=== PATIENT | male | born 1940 | race Caucasian/White ===

== ENCOUNTER 2016-09-12 11:00 | Inpatient (IN) | payer MEDICARE, MEDICAID ==
[2016-09-12 11:47] VITALS: BP 133/65
[2016-09-12] MEDS ORDERED: Hydrocodone/APAP 10 mg/325 mg Tab PO PRN (13:31)
[2016-09-12] MEDS ORDERED: Maalox 30 mL Cup PO PRN (13:44)
[2016-09-12] MEDS ORDERED: Magnesium Hydroxide (MOM) 30 mL UDC PO PRN (13:44)
[2016-09-12] MEDS ORDERED: Albuterol/Ipratropium Neb 3 ML AERS HHN SCH (15:00)
[2016-09-12] MEDS: Albuterol/Ipratropium Neb 3 ML AERS HHN SCH (15:17)
[2016-09-12] MEDS: INSULIN ASPART SLIDING SCALE 100 UNITS/ML UNIT SUBQ SCH ×2 (16:58→20:45)
[2016-09-12] MEDS: Insulin Detemir 100 units/mL 10mL Vial SUBQ SCH (17:54)
[2016-09-12] MEDS ORDERED: INSULIN ASPART, RECOMBINANT 100 UNITS/ML SUBQ ONE (20:09)
[2016-09-12] MEDS ORDERED: Insulin Detemir 100 units/mL 10mL Vial SUBQ SCH (21:00)
--- NOTE | 2016-09-12 22:03 | History & Physical ---
HISTORY OF PRESENT ILLNESS: This is a 76-year-old male who is a direct admission from [facility], who is now admitted here to [facility] for depression and suicidal ideation. On examination, the patient refuses to answer any further question. PAST MEDICAL HISTORY: Hypertension, diabetes, and morbid obesity. SURGICAL HISTORY: Unknown. ALLERGIES: BENAZEPRIL and GLIPIZIDE. REVIEW OF SYSTEMS: Unable to obtain. The patient is uncooperative. PHYSICAL EXAMINATION: GENERAL: The patient is morbidly obese. Awake and alert. Appears depressed. VITAL SIGNS: Temperature 97.2, heart rate 60, blood pressure 133/65, respirations 22, and O2 of 95. HEENT: Normocephalic. No nasal deviation. LUNGS: Clear bilaterally. HEART: Regular rate and rhythm. No murmurs or gallop. ABDOMEN: Soft, nontender, and nondistended. ASSESSMENT: 1. Morbidly obese. 2. Hypertension. 3. Type 2 diabetes. 4. Depression. 5. Suicidal ideation. PLAN: Psychiatry is to manage the patient's psychiatric issues. The patient is to be kept on the low-fat diet. We will monitor the patient's blood pressure and glucose level. JOB# [id number]
[2016-09-13] MEDS: Albuterol/Ipratropium Neb 3 ML AERS HHN SCH ×4 (00:33→22:38)
--- NOTE | 2016-09-13 04:24 | Psychosocial Evaluation ---
CHIEF COMPLAINT: "I was ____." HISTORY OF PRESENT ILLNESS: The patient is a 76-year-old male who was admitted to the hospital on a 5150 hold for dangerous to self and others. The patient threatened the staff and peers in the prison where he lives that he is going to kill himself and someone else according to the hold. The patient said that he has been stressed out and has been angry lately. He also has been feeling hopeless and helpless. The patient said that he has history of depression and he has been feeling more stressed out and more angry lately. The patient said that he started to have a lot of tension and started to have thoughts of suicide with no specific plans. PAST PSYCHIATRIC HISTORY: The patient has history of depression and the patient is taking Lexapro. PAST MEDICAL HISTORY: The patient is obese. Also, has hypothyroidism and diabetes mellitus. The patient added that his blood pressure sometimes is elevated. FAMILY PSYCHIATRIC HISTORY: The patient denies. SOCIAL HISTORY: The patient is . He has seven children and he is in touch with some of them. The patient denies any alcohol or any street drug use. He denies any legal issues. He denies any history of sexual or physical abuse. ALLERGIES: No known allergies. MENTAL STATUS EXAMINATION: The patient appears his stated age. Obese. Sad affect. In a depressed mood. Thought processes are mainly goal directed. The patient denies auditory or visual hallucinations or delusions. The patient admits to suicidal ideation and that he was threatening others. The patient is alert and oriented to time, place, person and situation. Intact, immediate, recent and remote memories. Poor insight. Poor judgment. He seems to be of average intelligence based on his verbal ability. ASSESSMENT: PRIMARY DIAGNOSES: Major depression, severe, recurrent, without psychotic features. MEDICAL DIAGNOSIS: 1. Hypothyroidism. 2. Obesity. 3. Diabetes mellitus. TREATMENT PLAN: We will monitor the patient's behavior and condition closely. We will start individual as well as milieu psychotherapy. We will monitor psychotropic medications. ESTIMATED LENGTH OF STAY: 7-10 days. THE PATIENT'S STRENGTHS AND WEAKNESSES: The patient's general fund of knowledge is fair. Weaknesses is ineffective coping and anger and poor impulse control. AFTER DISCHARGE PLAN: Outpatient treatment and followup will continue as an outpatient. The patient might need. CRITERIA FOR DISCHARGE: The patient will not be psychotic. The patient will not be suicidal or homicidal and stabilize psychotropic medications. The patient also placement might be an issue. JOB# [id number]
[2016-09-13] MEDS: Levothyroxine 0.1 Mg Tab PO SCH (06:37)
[2016-09-13] MEDS: INSULIN ASPART SLIDING SCALE 100 UNITS/ML UNIT SUBQ SCH ×4 (06:38→20:16)
[2016-09-13] MEDS: Insulin Detemir 100 units/mL 10mL Vial SUBQ SCH ×2 (06:38→17:52)
[2016-09-13] MEDS: Pantoprazole 40 mg EC Tab PO SCH (09:27)
[2016-09-13] MEDS: Potassium Chloride Elixir 20 mEq /15 mL UDC PO SCH (09:28)
--- NOTE | 2016-09-13 10:05 | General Progress Note ---
Subjective - Review of Systems Service Date: 09/13/16 Subjective: no change Objective - Results Recent Labs: Laboratory Last Values Glucose 460 mg/dL (70-105) H* 09/12/16 17:30 POC Glucose 314 MG/DL (70 - 105) H 09/13/16 05:16 Hemoglobin A1c % 12.2 % (4.0-6.0) H 09/12/16 18:30 - Physical Exam Vitals and I&O: Vital Signs Temp 97.2 F 09/13/16 06:33 Pulse 73 09/13/16 09:31 Resp 22 09/13/16 08:53 BP 117/66 09/13/16 09:31 Pulse Ox 92 09/13/16 08:53 Intake & Output 09/12/16 09/13/16 09/13/16 18:59 06:59 18:59 Intake Total 1600 240 Output Total 1800 Balance -200 240 Weight (lbs) 176.901 kg Intake: Oral 1600 240 Output: Urine 1800 Other: # Voids 3 # Bowel Movements 0 0 Active Medications: Current Medications Acetaminophen (Tylenol) 650 mg PO Q6HR PRN PRN Reason: mild pain Stop: 11/11/16 13:30 Acetaminophen/Hydrocodone Bitart ([place] 10 Mg/325 Mg) 1 tab PO Q6H PRN PRN Reason: Pain (Moderate-Severe) Stop: 11/11/16 13:30 Al Hydrox/Mg Hydrox/Simethicone (Maalox) 30 ml PO Q6H PRN PRN Reason: GI DISTRESS Stop: 11/11/16 13:43 Albuterol/Ipratropium (Duoneb Neb) 3 ml HHN Q8HRT [facility] Stop: 11/11/16 14:59 Last Admin: 09/13/16 08:53 Dose: 3 ml Aspirin (Ecotrin) 81 mg PO DAILY [facility] Stop: 11/12/16 08:59 Last Admin: 09/13/16 09:26 Dose: 81 mg Carvedilol (Coreg) 3.125 mg PO BID [facility] Stop: 11/11/16 16:59 Last Admin: 09/13/16 09:31 Dose: 3.125 mg Citalopram Hydrobromide (Celexa) 20 mg PO DAILY [facility] PRN Reason: Protocol Stop: 11/12/16 08:59 Last Admin: 09/13/16 09:27 Dose: 20 mg Docusate Sodium (Colace) 500 mg PO BID [facility] Stop: 11/12/16 09:44 Furosemide (Lasix) 40 mg PO BID [facility] Stop: 11/11/16 16:59 Last Admin: 09/13/16 09:27 Dose: 40 mg Insulin Aspart (Novolog Insulin Sliding Scale) 0 units SUBQ ACHS [facility] PRN Reason: Protocol Stop: 11/11/16 16:29 Last Admin: 09/13/16 06:38 Dose: 6 units Insulin Detemir (Levemir Insulin) 40 units SUBQ QDAC [facility] Stop: 11/12/16 07:29 Last Admin: 09/13/16 06:38 Dose: 40 units Insulin Detemir (Levemir Insulin) 30 units SUBQ QDIPM [facility] Stop: 11/11/16 17:44 Last Admin: 09/12/16 17:54 Dose: 30 unit Levothyroxine Sodium (Synthroid) 0.1 mg PO QDAC [facility] Stop: 11/12/16 07:29 Last Admin: 09/13/16 06:37 Dose: 0.1 mg Lorazepam (Ativan) 1 mg IVP Q4H PRN; Protocol PRN Reason: Anxiety/Agitation Stop: 11/11/16 13:43 Magnesium Hydroxide (Milk Of Magnesia) 30 ml PO DAILY PRN PRN Reason: Constipation Stop: 11/11/16 13:43 Ondansetron HCl (Zofran Odt) 4 mg PO TID PRN PRN Reason: Nausea / Vomiting Stop: 11/11/16 13:30 Pantoprazole Sodium (Protonix) 40 mg PO DAILY [facility] Stop: 11/12/16 08:59 Last Admin: 09/13/16 09:27 Dose: 40 mg Potassium Chloride (Potassium Chloride Elixir) 16 meq PO DAILY [facility] Stop: 11/12/16 08:59 Last Admin: 09/13/16 09:28 Dose: 16 meq Risperidone (Risperdal) 0.5 mg PO DAILY [facility] PRN Reason: Protocol Stop: 11/12/16 08:59 Last Admin: 09/13/16 09:28 Dose: 0.5 mg Rivaroxaban (Xarelto) 20 mg PO HS [facility] Stop: 11/11/16 20:59 Last Admin: 09/12/16 20:44 Dose: 20 mg Simvastatin (Zocor) 40 mg PO HS [facility] PRN Reason: Protocol Stop: 11/11/16 20:59 Last Admin: 09/12/16 20:44 Dose: 40 mg Spironolactone (Aldactone) 25 mg PO DAILY [facility] Stop: 11/12/16 08:59 Last Admin: 09/13/16 09:26 Dose: 25 mg Valsartan (Diovan) 160 mg PO DAILY [facility] Stop: 11/12/16 08:59 Last Admin: 09/13/16 09:26 Dose: 160 mg Zolpidem Tartrate (Ambien) 5 mg PO HS PRN PRN Reason: Insomnia Stop: 11/11/16 13:43 General: Alert, Cooperative HEENT: Atraumatic Neck: Supple Cardiovascular: Regular rate, Normal S1, Normal S2 Lungs: Clear to auscultation Abdomen: Bowel sounds Neurological: Normal gait Psych/Mental Status: Other - Procedures Procedures: see psych notes Assessment/Plan - Assessment Assessment: dm2 psychosis
[2016-09-13] MEDS: Magnesium Hydroxide (MOM) 30 mL UDC PO PRN (18:56)
--- NOTE | 2016-09-14 01:10 | Progress Notes ---
SUBJECTIVE: Chart reviewed and the patient interviewed. Also discussed the patient's condition with the staff and reviewed records and labs. The patient is still severely anxious and he is still in a depressed mood. The patient also is still confused and rambling and his thought processes are circumstantial with flight of ideas. The patient also is still confused and he is still restless. The patient also is having difficulty with his mood. The patient also is having difficulty getting out of bed and interacting with others. Otherwise, the patient is compliant with taking Celexa with no side effects. During interview, the patient is suspicious and is paranoid. He also is still interacting minimally with others. ASSESSMENT: The patient is still confused and psychotic. TREATMENT PLAN: We will continue monitoring his behavior and his condition closely. Also, continue to work on his psychosis. Also, continue to adjust psychotropic medications and we add Risperdal in a dose of 0.5 mg everyday and we will continue to follow up closely. JOB# [id number]
[2016-09-14] MEDS: INSULIN ASPART SLIDING SCALE 100 UNITS/ML UNIT SUBQ SCH ×4 (06:32→20:47)
[2016-09-14] MEDS: Levothyroxine 0.1 Mg Tab PO SCH (06:32)
[2016-09-14] MEDS: Insulin Detemir 100 units/mL 10mL Vial SUBQ SCH ×2 (06:33→17:36)
[2016-09-14] MEDS: Albuterol/Ipratropium Neb 3 ML AERS HHN SCH ×3 (07:44→23:47)
[2016-09-14] MEDS: Pantoprazole 40 mg EC Tab PO SCH (09:03)
[2016-09-14] MEDS: Potassium Chloride Elixir 20 mEq /15 mL UDC PO SCH (09:05)
--- NOTE | 2016-09-14 09:18 | General Progress Note ---
Subjective - Review of Systems Subjective: no change Objective - Results Recent Labs: Laboratory Last Values Glucose 460 mg/dL (70-105) H* 09/12/16 17:30 POC Glucose 209 MG/DL (70 - 105) H 09/14/16 06:18 Hemoglobin A1c % 12.2 % (4.0-6.0) H 09/12/16 18:30 - Physical Exam Vitals and I&O: Vital Signs Temp 97.1 F 09/14/16 07:12 Pulse 67 09/14/16 09:04 Resp 22 09/14/16 07:44 BP 140/72 09/14/16 09:04 Pulse Ox 95 09/14/16 07:44 Intake & Output 09/13/16 09/14/16 09/14/16 18:59 06:59 18:59 Intake Total 1999 Balance 1999 Weight (lbs) 176.266 kg Intake: Oral 1999 Other: # Voids 4 Stool Characteristics Soft Soft Formed Formed Active Medications: Current Medications Acetaminophen (Tylenol) 650 mg PO Q6HR PRN PRN Reason: mild pain Stop: 11/11/16 13:30 Acetaminophen/Hydrocodone Bitart ([place] 10 Mg/325 Mg) 1 tab PO Q6H PRN PRN Reason: Pain (Moderate-Severe) Stop: 11/11/16 13:30 Al Hydrox/Mg Hydrox/Simethicone (Maalox) 30 ml PO Q6H PRN PRN Reason: GI DISTRESS Stop: 11/11/16 13:43 Albuterol/Ipratropium (Duoneb Neb) 3 ml HHN Q8HRT [facility] Stop: 11/11/16 14:59 Last Admin: 09/14/16 07:44 Dose: 3 ml Aspirin (Ecotrin) 81 mg PO DAILY [facility] Stop: 11/12/16 08:59 Last Admin: 09/14/16 09:02 Dose: 81 mg Carvedilol (Coreg) 3.125 mg PO BID [facility] Stop: 11/11/16 16:59 Last Admin: 09/14/16 09:04 Dose: 3.125 mg Citalopram Hydrobromide (Celexa) 20 mg PO DAILY [facility] PRN Reason: Protocol Stop: 11/12/16 08:59 Last Admin: 09/14/16 09:02 Dose: 20 mg Docusate Sodium (Colace) 500 mg PO BID [facility] Stop: 11/12/16 09:44 Last Admin: 09/14/16 09:02 Dose: 500 mg Furosemide (Lasix) 40 mg PO BID [facility] Stop: 11/11/16 16:59 Last Admin: 09/14/16 09:03 Dose: 40 mg Insulin Aspart (Novolog Insulin Sliding Scale) 0 units SUBQ ACHS [facility] PRN Reason: Protocol Stop: 11/11/16 16:29 Last Admin: 09/14/16 06:32 Dose: 2 units Insulin Detemir (Levemir Insulin) 40 units SUBQ QDAC [facility] Stop: 11/12/16 07:29 Last Admin: 09/14/16 06:33 Dose: 40 units Insulin Detemir (Levemir Insulin) 30 units SUBQ QDIPM [facility] Stop: 11/11/16 17:44 Last Admin: 09/13/16 17:52 Dose: 30 unit Levothyroxine Sodium (Synthroid) 0.1 mg PO QDAC [facility] Stop: 11/12/16 07:29 Last Admin: 09/14/16 06:32 Dose: 0.1 mg Lorazepam (Ativan) 1 mg IVP Q4H PRN; Protocol PRN Reason: Anxiety/Agitation Stop: 11/11/16 13:43 Magnesium Hydroxide (Milk Of Magnesia) 30 ml PO DAILY PRN PRN Reason: Constipation Stop: 11/11/16 13:43 Last Admin: 09/13/16 18:56 Dose: 30 ml Ondansetron HCl (Zofran Odt) 4 mg PO TID PRN PRN Reason: Nausea / Vomiting Stop: 11/11/16 13:30 Pantoprazole Sodium (Protonix) 40 mg PO DAILY [facility] Stop: 11/12/16 08:59 Last Admin: 09/14/16 09:03 Dose: 40 mg Potassium Chloride (Potassium Chloride Elixir) 16 meq PO DAILY [facility] Stop: 11/12/16 08:59 Last Admin: 09/14/16 09:05 Dose: 16 meq Risperidone (Risperdal) 0.5 mg PO DAILY [facility] PRN Reason: Protocol Stop: 11/12/16 08:59 Last Admin: 09/14/16 09:02 Dose: 0.5 mg Rivaroxaban (Xarelto) 20 mg PO HS [facility] Stop: 11/11/16 20:59 Last Admin: 09/13/16 20:17 Dose: 20 mg Simvastatin (Zocor) 40 mg PO HS [facility] PRN Reason: Protocol Stop: 11/11/16 20:59 Last Admin: 09/13/16 20:16 Dose: 40 mg Spironolactone (Aldactone) 25 mg PO DAILY [facility] Stop: 11/12/16 08:59 Last Admin: 09/14/16 09:03 Dose: 25 mg Valsartan (Diovan) 160 mg PO DAILY [facility] Stop: 11/12/16 08:59 Last Admin: 09/14/16 09:04 Dose: 160 mg Zolpidem Tartrate (Ambien) 5 mg PO HS PRN PRN Reason: Insomnia Stop: 11/11/16 13:43 Assessment/Plan - Assessment Assessment: dm2 psychosis
[2016-09-14] MEDS: Magnesium Hydroxide (MOM) 30 mL UDC PO PRN (16:58)
[2016-09-14] MEDS: Albuterol/Ipratropium Neb 3 ML AERS HHN PRN (20:24)
[2016-09-14] MEDS: Betamethasone/Clotrimazole Cream 15 gm Tube TP SCH (20:44)
--- NOTE | 2016-09-14 23:44 | Consultation ---
Consult Note - Consult Note Service Date: 09/14/16 Consult Note: PHYSICIAN Consultation Note: Date of Admission: 09/12/16 Purpose of Consultation: left 2nd toe wound and cellulitis. Chief Complaint: suicidal and hemocidal ideation. History of Present Illness: Patient CECY THOMPSON was admitted to location [facility] with PSYCHOSIS. 76 y male with obesity, admitted for suicidal and homicidal ideation. He stated that he wanted to kill himself or some one else. So, he was brought to the [facility] unit here under 5150. He was found to have wound wnd redness of 2nd toe of his left foot so ID consult was called for antibiotic management. No Fever, no chills. no pain. Past medical history: DM2, HTN, obesity. Allergies Allergy/AdvReac Type Severity Reaction Status Date / Time glipizide Allergy Unknown Verified 09/12/16 22:37 benazepril Allergy Verified 09/12/16 11:38 januvia Allergy Severe AGITATION Uncoded 09/13/16 19:25 Vital Signs Temp 97.1 F 09/14/16 07:12 Pulse 82 09/14/16 22:13 Resp 18 09/14/16 22:13 BP 121/58 09/14/16 16:56 Pulse Ox 94 09/14/16 20:45 Intake & Output 09/14/16 09/14/16 09/15/16 06:59 18:59 06:59 Other: Stool Characteristics Soft Formed Laboratory Results - last 24 hr 09/14/16 09/14/16 09/14/16 06:18 11:54 17:18 POC Glucose 209 H 396 H 313 H 09/14/16 20:25 POC Glucose 347 H Home Medication Medication Instructions Recorded Type Acetaminophen [Tylenol] 650 mg PO Q6HR PRN 09/12/16 History Aspirin EC [Ecotrin] 81 mg PO DAILY 09/12/16 History Carvedilol [Coreg] 3.125 mg PO BID 09/12/16 History Citalopram Hydrobromide [Celexa] 20 mg PO DAILY 09/12/16 History Docusate Sodium [Colace] 500 mg PO BID 09/12/16 History Furosemide [Lasix] 40 mg PO BID 09/12/16 History Hydrocodone/APAP 10 mg/325 mg 1 tab PO Q6H PRN 09/12/16 History [[place] 10 mg/325 mg] Insulin Glargine, Recombinan 30 units SUBQ HS 09/12/16 History [Lantus] Insulin Glargine, Recombinan 40 unit SQ QDAC 09/12/16 History [Lantus] Ipratropium/Albuterol Sulfate 18 - 103 mcg IH QID 09/12/16 History [Combivent Respimat] Ipratropium/Albuterol Sulfate 0.5 - 2.5 mg HHN Q8HR 09/12/16 History [Iprat-Albut 0.5-3(2.5) mg/3 ml] Levothyroxine [Synthroid] 0.1 mg PO QDAC 09/12/16 History Omeprazole 20 mg PO DAILY 09/12/16 History Ondansetron [Ondansetron Odt] 4 mg PO TID PRN 09/12/16 History Potassium Chloride ER [Klor-Con] 16 meq PO DAILY 09/12/16 History Rivaroxaban [Xarelto] 20 mg PO HS 09/12/16 History Simvastatin [Zocor] 40 mg PO HS 09/12/16 History Spironolactone [Aldactone] 25 mg PO DAILY 09/12/16 History Valsartan [Diovan] 160 mg PO DAILY 09/12/16 History Current Medications Generic Name Dose Route Start Last Admin Trade Name Freq PRN Reason Stop Dose Admin Acetaminophen 650 mg 09/12/16 13:31 Tylenol PO 11/11/16 13:30 Q6HR PRN mild pain Acetaminophen/Hydrocodone Bitart 1 tab 09/12/16 13:31 [place] 10 Mg/325 Mg PO 11/11/16 13:30 Q6H PRN Pain (Moderate-Severe) Al Hydrox/Mg Hydrox/Simethicone 30 ml 09/12/16 13:44 Maalox PO 11/11/16 13:43 Q6H PRN GI DISTRESS Albuterol/Ipratropium 3 ml 09/12/16 15:00 09/14/16 14:36 Duoneb Neb N 11/11/16 14:59 3 ml Q8HRT [facility] Administration Albuterol/Ipratropium 3 ml 09/14/16 16:03 09/14/16 20:24 Duoneb Neb N 11/13/16 16:02 3 ml Q2H PRN Administration Wheezing Aspirin 81 mg 09/13/16 09:00 09/14/16 09:02 Ecotrin PO 11/12/16 08:59 81 mg DAILY [facility] Administration Betamethasone/Clotrimazole 1 appl 09/14/16 21:00 09/14/16 20:44 Lotrisone Cream TP 11/13/16 20:59 Not Given TID [facility]TE Carvedilol 3.125 mg 09/12/16 17:00 09/14/16 16:56 Coreg PO 11/11/16 16:59 3.125 mg BID [facility] Administration Citalopram Hydrobromide 20 mg 09/13/16 09:00 09/14/16 09:02 Celexa PO 11/12/16 08:59 20 mg DAILY [facility] Administration Protocol Clindamycin HCl 150 mg 09/14/16 21:00 09/14/16 20:43 Cleocin Hcl PO 09/24/16 20:59 150 mg QID [facility] Administration Docusate Sodium 500 mg 09/13/16 09:45 09/14/16 16:56 Colace PO 11/12/16 09:44 500 mg BID [facility] Administration Furosemide 40 mg 09/12/16 17:00 09/14/16 16:56 Lasix PO 11/11/16 16:59 40 mg BID [facility] Administration Hydroxyzine Pamoate 25 mg 09/14/16 13:37 Vistaril PO 11/13/16 13:36 Q4HR PRN Anxiety Protocol Insulin Aspart 0 units 09/12/16 16:30 09/14/16 20:47 Novolog Insulin Sliding Scale SUBQ 11/11/16 16:29 6 units ACHS [facility] Administration Protocol Insulin Detemir 40 units 09/13/16 07:30 09/14/16 06:33 Levemir Insulin SUBQ 11/12/16 07:29 40 units QDAC [facility] Administration Insulin Detemir 30 units 09/12/16 17:45 09/14/16 17:36 Levemir Insulin SUBQ 11/11/16 17:44 30 unit QDIPM [facility] Administration Levothyroxine Sodium 0.1 mg 09/13/16 07:30 09/14/16 06:32 Synthroid PO 11/12/16 07:29 0.1 mg QDAC [facility] Administration Lorazepam 1 mg 09/12/16 13:44 Ativan IVP 11/11/16 13:43 Q4H PRN Anxiety/Agitation Protocol Magnesium Hydroxide 30 ml 09/12/16 18:45 09/14/16 16:58 Milk Of Magnesia PO 11/11/16 13:43 30 ml DAILY PRN Administration Constipation Mupirocin 1 appl 09/14/16 17:00 09/14/16 16:58 Bactroban Oint NS 09/19/16 09:01 1 appl BID [facility] Administration Ondansetron HCl 4 mg 09/12/16 13:31 Zofran Odt PO 11/11/16 13:30 TID PRN Nausea / Vomiting Pantoprazole Sodium 40 mg 09/13/16 09:00 09/14/16 09:03 Protonix PO 11/12/16 08:59 40 mg DAILY [facility] Administration Potassium Chloride 16 meq 09/13/16 09:00 09/14/16 09:05 Potassium Chloride Elixir PO 11/12/16 08:59 16 meq DAILY [facility] Administration Risperidone 0.5 mg 09/13/16 09:00 09/14/16 09:02 Risperdal PO 11/12/16 08:59 0.5 mg DAILY [facility] Administration Protocol Rivaroxaban 20 mg 09/12/16 21:00 09/14/16 20:44 Xarelto PO 11/11/16 20:59 20 mg HS [facility] Administration Simvastatin 40 mg 09/12/16 21:00 09/14/16 20:43 Zocor PO 11/11/16 20:59 40 mg HS [facility] Administration Protocol Spironolactone 25 mg 09/13/16 09:00 09/14/16 09:03 Aldactone PO 11/12/16 08:59 25 mg DAILY [facility] Administration Valsartan 160 mg 09/13/16 09:00 09/14/16 09:04 Diovan PO 11/12/16 08:59 160 mg DAILY [facility] Administration Zolpidem Tartrate 5 mg 09/12/16 13:44 Ambien PO 11/11/16 13:43 HS PRN Insomnia Review of Systems: A 12 point ROS was reviewed with the pertinent positive and negatives noted in the HPI. Social History Smoking status unknown, alcohol unknown, drug use unknown. Family Medical History Non contributory. Physical Exam: General: No Acute Distress HEENT: Head is normocephalic, atraumatic on inspection. Oral cavity: moist, pink tongue. Eyes: EOMI Bilaterally, PERRLA Bilaterally. Neck: Supple,no JVD, no carotid bruit. No use of accessory neck muscle. Cardio: +S1/S2 Auscultated, RRR, no murmurs/rubs/gallops noted Respiratory: Clear to Auscultate Bilaterally Abdominal: Soft, Nondistended, Nontender to palpation x 4 quadrants Extremities: No Edema noted in the lower extremities. Left foot 2nd toe has small superficial wound with surrounding erythema. No discharge. Neurological: Alert and awake. Cranial Nerves II-XII intact bilaterally, Gait Steady, No Focal Deficits noted. Assessment/Plan: 1. 2nd toe left foot cellulitis with small wound. It does not look complicated. - No need to do extensive study. give cleocin po and wound care. 2. Psychosis, with suicidal and homicidal ideation. - Psych consult on the case. 3. Obesity. 4. DM2 5. HTN. Recommendations: as above. Signed, Pedro Fernandez M.D. [id number]
--- NOTE | 2016-09-15 06:15 | Progress Notes ---
SUBJECTIVE: Chart reviewed and the patient interviewed. Also, discussed the patient's condition with the staff and reviewed records and labs. The patient is still anxious and he is still in a depressed mood. The patient states "I do not feel good." The patient also still seems to be suspicious and paranoid and he is very slow in his response to questions. The patient also still isolates himself and staying in bed most of the time. Also, during interview, the patient has poor eye contact and at times, ____ irritable and seems to be distracted. ASSESSMENT: The patient is still depressed and psychotic. TREATMENT PLAN: We will continue monitoring his behavior and his condition closely. Also, started Risperdal and continue Celexa and continue to work on his psychosis as well as ineffective coping. JOB# [id number]
[2016-09-15] MEDS: INSULIN ASPART SLIDING SCALE 100 UNITS/ML UNIT SUBQ SCH ×4 (06:41→20:34)
[2016-09-15] MEDS: Levothyroxine 0.1 Mg Tab PO SCH (06:41)
[2016-09-15] MEDS: Insulin Detemir 100 units/mL 10mL Vial SUBQ SCH ×2 (06:41→17:41)
[2016-09-15 08:29] LABS: BUN - UREA NITROGEN 18 mg/dL (7-25); BUN/CREATININE RATIO 22.5; CARBON DIOXIDE 33.3 mEq/L (21.0-31.0); CHLORIDE 91 mEq/L (98-107); CREATININE - SERUM 0.8 mg/dL (0.7-1.3); GLUCOSE 243 mg/dL (70-105); POTASSIUM SERUM 4.3 mEq/L (3.5-5.1); SODIUM SERUM 127 mEq/L (136-145)
[2016-09-15 08:32] LABS: % BASOPHILS 0.2 % (0.0-2.0); % EOSINOPHILS 1.9 % (0.0-5.0); % LYMPHOCYTES 11.5 % (20.0-50.0); % MONOCYTES 4.4 % (2.0-10.0); HEMATOCRIT 47.3 % (39.0-49.0); MEAN CELL VOLUME 84.3 fl (80-99); MEAN CORPUSCULAR HEMOGLOBIN 28.6 pg (27.0-31.0); MEAN CORPUSCULAR HGB CONC 33.9 pg (28.0-36.0); MEAN PLATELET VOLUME 7.7 fl; NEUTROPHILE ABSOLUTE 7.5 Th/cmm (1.8-8.0); PLATELET COUNT 213 Th/cmm (150-400); RED CELL DISTRIBUTION WIDTH 12.7 % (11.5-20.0); WHITE BLOOD COUNT 9.1 Th/cmm (4.8-10.8)
[2016-09-15] MEDS: Pantoprazole 40 mg EC Tab PO SCH (09:20)
[2016-09-15] MEDS: Potassium Chloride Elixir 20 mEq /15 mL UDC PO SCH (09:21)
[2016-09-15] MEDS: Betamethasone/Clotrimazole Cream 15 gm Tube TP SCH ×3 (09:22→20:33)
--- NOTE | 2016-09-15 09:50 | General Progress Note ---
Subjective - Review of Systems Subjective: no change Objective - Results Result Diagrams: 09/15/16 07:50 09/15/16 07:50 Recent Labs: Laboratory Last Values WBC 9.1 Th/cmm (4.8-10.8) 09/15/16 07:50 RBC 5.60 Mil/cmm (3.80-5.80) 09/15/16 07:50 Hgb 16.0 gm/dL (12.6-17.4) 09/15/16 07:50 Hct 47.3 % (39.0-49.0) 09/15/16 07:50 MCV 84.3 fl (80-99) 09/15/16 07:50 MCH 28.6 pg (27.0-31.0) 09/15/16 07:50 MCHC Differential 33.9 pg (28.0-36.0) 09/15/16 07:50 RDW 12.7 % (11.5-20.0) 09/15/16 07:50 Plt Count 213 Th/cmm (150-400) 09/15/16 07:50 MPV 7.7 fl 09/15/16 07:50 Neutrophils % 82.0 % (40.0-80.0) H 09/15/16 07:50 Lymphocytes % 11.5 % (20.0-50.0) L 09/15/16 07:50 Monocytes % 4.4 % (2.0-10.0) 09/15/16 07:50 Eosinophils % 1.9 % (0.0-5.0) 09/15/16 07:50 Basophils % 0.2 % (0.0-2.0) 09/15/16 07:50 Sodium 127 mEq/L (136-145) L 09/15/16 07:50 Potassium 4.3 mEq/L (3.5-5.1) 09/15/16 07:50 Chloride 91 mEq/L (98-107) L 09/15/16 07:50 Carbon Dioxide 33.3 mEq/L (21.0-31.0) H 09/15/16 07:50 Anion Gap 7.0 (7.0-16.0) 09/15/16 07:50 BUN 18 mg/dL (7-25) 09/15/16 07:50 Creatinine 0.8 mg/dL (0.7-1.3) 09/15/16 07:50 Est GFR ( Amer) TNP 09/15/16 07:50 Est GFR (Non-Af Amer) TNP 09/15/16 07:50 BUN/Creatinine Ratio 22.5 09/15/16 07:50 Glucose 243 mg/dL (70-105) H 09/15/16 07:50 POC Glucose 248 MG/DL (70 - 105) H 09/15/16 06:01 Hemoglobin A1c % 12.2 % (4.0-6.0) H 09/12/16 18:30 Calcium 10.0 mg/dL (8.6-10.3) 09/15/16 07:50 - Physical Exam Vitals and I&O: Vital Signs Temp 97.1 F 09/14/16 07:12 Pulse 89 09/15/16 09:21 Resp 18 09/14/16 23:55 BP 134/72 09/15/16 09:21 Pulse Ox 93 09/14/16 23:55 Intake & Output 09/14/16 09/15/16 09/15/16 18:59 06:59 18:59 Other: # Voids 2 Active Medications: Current Medications Acetaminophen (Tylenol) 650 mg PO Q6HR PRN PRN Reason: mild pain Stop: 11/11/16 13:30 Acetaminophen/Hydrocodone Bitart ([place] 10 Mg/325 Mg) 1 tab PO Q6H PRN PRN Reason: Pain (Moderate-Severe) Stop: 11/11/16 13:30 Al Hydrox/Mg Hydrox/Simethicone (Maalox) 30 ml PO Q6H PRN PRN Reason: GI DISTRESS Stop: 11/11/16 13:43 Albuterol/Ipratropium (Duoneb Neb) 3 ml HHN Q8HRT [facility] Stop: 11/11/16 14:59 Last Admin: 09/14/16 23:47 Dose: 3 ml Albuterol/Ipratropium (Duoneb Neb) 3 ml HHN Q2H PRN PRN Reason: Wheezing Stop: 11/13/16 16:02 Last Admin: 09/14/16 20:24 Dose: 3 ml Aspirin (Ecotrin) 81 mg PO DAILY [facility] Stop: 11/12/16 08:59 Last Admin: 09/15/16 09:20 Dose: 81 mg Betamethasone/Clotrimazole (Lotrisone Cream) 1 appl TP TID [facility] Stop: 11/13/16 20:59 Last Admin: 09/15/16 09:22 Dose: 1 appl Carvedilol (Coreg) 3.125 mg PO BID [facility] Stop: 11/11/16 16:59 Last Admin: 09/15/16 09:21 Dose: 3.125 mg Citalopram Hydrobromide (Celexa) 30 mg PO DAILY [facility] PRN Reason: Protocol Stop: 11/12/16 08:59 Clindamycin HCl (Cleocin Hcl) 150 mg PO QID [facility] Stop: 09/24/16 20:59 Last Admin: 09/15/16 09:20 Dose: 150 mg Docusate Sodium (Colace) 500 mg PO BID [facility] Stop: 11/12/16 09:44 Last Admin: 09/15/16 09:00 Dose: 500 mg Furosemide (Lasix) 40 mg PO BID [facility] Stop: 11/11/16 16:59 Last Admin: 09/15/16 09:20 Dose: 40 mg Hydroxyzine Pamoate (Vistaril) 25 mg PO Q4HR PRN; Protocol PRN Reason: Anxiety Stop: 11/13/16 13:36 Insulin Aspart (Novolog Insulin Sliding Scale) 0 units SUBQ ACHS [facility] PRN Reason: Protocol Stop: 11/11/16 16:29 Last Admin: 09/15/16 06:41 Dose: 2 units Insulin Detemir (Levemir Insulin) 40 units SUBQ QDAC [facility] Stop: 11/12/16 07:29 Last Admin: 09/15/16 06:41 Dose: 40 units Insulin Detemir (Levemir Insulin) 30 units SUBQ QDIPM [facility] Stop: 11/11/16 17:44 Last Admin: 09/14/16 17:36 Dose: 30 unit Levothyroxine Sodium (Synthroid) 0.1 mg PO QDAC [facility] Stop: 11/12/16 07:29 Last Admin: 09/15/16 06:41 Dose: 0.1 mg Lorazepam (Ativan) 1 mg IVP Q4H PRN; Protocol PRN Reason: Anxiety/Agitation Stop: 11/11/16 13:43 Magnesium Hydroxide (Milk Of Magnesia) 30 ml PO DAILY PRN PRN Reason: Constipation Stop: 11/11/16 13:43 Last Admin: 09/14/16 16:58 Dose: 30 ml Mupirocin (Bactroban Oint) 1 appl NS BID [facility] Stop: 09/19/16 09:01 Last Admin: 09/15/16 09:22 Dose: 1 appl Ondansetron HCl (Zofran Odt) 4 mg PO TID PRN PRN Reason: Nausea / Vomiting Stop: 11/11/16 13:30 Pantoprazole Sodium (Protonix) 40 mg PO DAILY [facility] Stop: 11/12/16 08:59 Last Admin: 09/15/16 09:20 Dose: 40 mg Potassium Chloride (Potassium Chloride Elixir) 16 meq PO DAILY [facility] Stop: 11/12/16 08:59 Last Admin: 09/15/16 09:21 Dose: 16 meq Risperidone (Risperdal) 1 mg PO DAILY [facility] PRN Reason: Protocol Stop: 11/12/16 08:59 Last Admin: 09/15/16 09:21 Dose: 1 mg Rivaroxaban (Xarelto) 20 mg PO HS [facility] Stop: 11/11/16 20:59 Last Admin: 09/14/16 20:44 Dose: 20 mg Simvastatin (Zocor) 40 mg PO HS [facility] PRN Reason: Protocol Stop: 11/11/16 20:59 Last Admin: 09/14/16 20:43 Dose: 40 mg Spironolactone (Aldactone) 25 mg PO DAILY [facility] Stop: 11/12/16 08:59 Last Admin: 09/15/16 09:19 Dose: 25 mg Valsartan (Diovan) 160 mg PO DAILY [facility] Stop: 11/12/16 08:59 Last Admin: 09/15/16 09:20 Dose: 160 mg Zolpidem Tartrate (Ambien) 5 mg PO HS PRN PRN Reason: Insomnia Stop: 11/11/16 13:43 Assessment/Plan - Assessment Assessment: dm2 psychosis
[2016-09-15] MEDS: Albuterol/Ipratropium Neb 3 ML AERS HHN SCH ×2 (10:09→19:48)
--- NOTE | 2016-09-15 12:07 | Infectious Disease Prog Note ---
Infectious Disease Subjective - Review of Systems Service Date: 09/15/16 Subjective: no new change. Infectious Disease Objective - Results Result Diagrams: 09/15/16 07:50 09/15/16 07:50 Recent Labs: Laboratory Last Values WBC 9.1 Th/cmm (4.8-10.8) 09/15/16 07:50 RBC 5.60 Mil/cmm (3.80-5.80) 09/15/16 07:50 Hgb 16.0 gm/dL (12.6-17.4) 09/15/16 07:50 Hct 47.3 % (39.0-49.0) 09/15/16 07:50 MCV 84.3 fl (80-99) 09/15/16 07:50 MCH 28.6 pg (27.0-31.0) 09/15/16 07:50 MCHC Differential 33.9 pg (28.0-36.0) 09/15/16 07:50 RDW 12.7 % (11.5-20.0) 09/15/16 07:50 Plt Count 213 Th/cmm (150-400) 09/15/16 07:50 MPV 7.7 fl 09/15/16 07:50 Neutrophils % 82.0 % (40.0-80.0) H 09/15/16 07:50 Lymphocytes % 11.5 % (20.0-50.0) L 09/15/16 07:50 Monocytes % 4.4 % (2.0-10.0) 09/15/16 07:50 Eosinophils % 1.9 % (0.0-5.0) 09/15/16 07:50 Basophils % 0.2 % (0.0-2.0) 09/15/16 07:50 Sodium 127 mEq/L (136-145) L 09/15/16 07:50 Potassium 4.3 mEq/L (3.5-5.1) 09/15/16 07:50 Chloride 91 mEq/L (98-107) L 09/15/16 07:50 Carbon Dioxide 33.3 mEq/L (21.0-31.0) H 09/15/16 07:50 Anion Gap 7.0 (7.0-16.0) 09/15/16 07:50 BUN 18 mg/dL (7-25) 09/15/16 07:50 Creatinine 0.8 mg/dL (0.7-1.3) 09/15/16 07:50 Est GFR ( Amer) TNP 09/15/16 07:50 Est GFR (Non-Af Amer) TNP 09/15/16 07:50 BUN/Creatinine Ratio 22.5 09/15/16 07:50 Glucose 243 mg/dL (70-105) H 09/15/16 07:50 POC Glucose 248 MG/DL (70 - 105) H 09/15/16 06:01 Hemoglobin A1c % 12.2 % (4.0-6.0) H 09/12/16 18:30 Calcium 10.0 mg/dL (8.6-10.3) 09/15/16 07:50 - Physical Exam Vitals and I&O: Vital Signs Temp 97.1 F 09/14/16 07:12 Pulse 89 09/15/16 09:21 Resp 19 09/15/16 08:00 BP 134/72 09/15/16 09:21 Pulse Ox 93 09/14/16 23:55 Intake & Output 09/14/16 09/15/16 09/15/16 18:59 06:59 18:59 Other: # Voids 2 Active Medications: Current Medications Acetaminophen (Tylenol) 650 mg PO Q6HR PRN PRN Reason: mild pain Stop: 11/11/16 13:30 Acetaminophen/Hydrocodone Bitart ([place] 10 Mg/325 Mg) 1 tab PO Q6H PRN PRN Reason: Pain (Moderate-Severe) Stop: 11/11/16 13:30 Al Hydrox/Mg Hydrox/Simethicone (Maalox) 30 ml PO Q6H PRN PRN Reason: GI DISTRESS Stop: 11/11/16 13:43 Albuterol/Ipratropium (Duoneb Neb) 3 ml HHN Q8HRT [facility] Stop: 11/11/16 14:59 Last Admin: 09/15/16 10:09 Dose: 3 ml Albuterol/Ipratropium (Duoneb Neb) 3 ml HHN Q2H PRN PRN Reason: Wheezing Stop: 11/13/16 16:02 Last Admin: 09/14/16 20:24 Dose: 3 ml Aspirin (Ecotrin) 81 mg PO DAILY [facility] Stop: 11/12/16 08:59 Last Admin: 09/15/16 09:20 Dose: 81 mg Betamethasone/Clotrimazole (Lotrisone Cream) 1 appl TP TID [facility] Stop: 11/13/16 20:59 Last Admin: 09/15/16 09:22 Dose: 1 appl Carisoprodol (Soma) 350 mg PO Q8HR PRN PRN Reason: severe muscle spasms Stop: 11/14/16 11:10 Last Admin: 09/15/16 11:39 Dose: 350 mg Carvedilol (Coreg) 3.125 mg PO BID [facility] Stop: 11/11/16 16:59 Last Admin: 09/15/16 09:21 Dose: 3.125 mg Citalopram Hydrobromide (Celexa) 30 mg PO DAILY [facility] PRN Reason: Protocol Stop: 11/12/16 08:59 Clindamycin HCl (Cleocin Hcl) 150 mg PO QID [facility] Stop: 09/24/16 20:59 Last Admin: 09/15/16 09:20 Dose: 150 mg Docusate Sodium (Colace) 500 mg PO BID [facility] Stop: 11/12/16 09:44 Last Admin: 09/15/16 09:00 Dose: 500 mg Furosemide (Lasix) 40 mg PO BID [facility] Stop: 11/11/16 16:59 Last Admin: 09/15/16 09:20 Dose: 40 mg Hydroxyzine Pamoate (Vistaril) 25 mg PO Q4HR PRN; Protocol PRN Reason: Anxiety Stop: 11/13/16 13:36 Insulin Aspart (Novolog Insulin Sliding Scale) 0 units SUBQ ACHS [facility] PRN Reason: Protocol Stop: 11/11/16 16:29 Last Admin: 09/15/16 11:48 Dose: 8 units Insulin Detemir (Levemir Insulin) 40 units SUBQ QDAC [facility] Stop: 11/12/16 07:29 Last Admin: 09/15/16 06:41 Dose: 40 units Insulin Detemir (Levemir Insulin) 30 units SUBQ QDIPM [facility] Stop: 11/11/16 17:44 Last Admin: 09/14/16 17:36 Dose: 30 unit Levothyroxine Sodium (Synthroid) 0.1 mg PO QDAC [facility] Stop: 11/12/16 07:29 Last Admin: 09/15/16 06:41 Dose: 0.1 mg Lorazepam (Ativan) 1 mg IVP Q4H PRN; Protocol PRN Reason: Anxiety/Agitation Stop: 11/11/16 13:43 Magnesium Hydroxide (Milk Of Magnesia) 30 ml PO DAILY PRN PRN Reason: Constipation Stop: 11/11/16 13:43 Last Admin: 09/14/16 16:58 Dose: 30 ml Mupirocin (Bactroban Oint) 1 appl NS BID [facility] Stop: 09/19/16 09:01 Last Admin: 09/15/16 09:22 Dose: 1 appl Ondansetron HCl (Zofran Odt) 4 mg PO TID PRN PRN Reason: Nausea / Vomiting Stop: 11/11/16 13:30 Pantoprazole Sodium (Protonix) 40 mg PO DAILY [facility] Stop: 11/12/16 08:59 Last Admin: 09/15/16 09:20 Dose: 40 mg Potassium Chloride (Potassium Chloride Elixir) 16 meq PO DAILY [facility] Stop: 11/12/16 08:59 Last Admin: 09/15/16 09:21 Dose: 16 meq Risperidone (Risperdal) 1 mg PO DAILY [facility] PRN Reason: Protocol Stop: 11/12/16 08:59 Last Admin: 09/15/16 09:21 Dose: 1 mg Rivaroxaban (Xarelto) 20 mg PO HS [facility] Stop: 11/11/16 20:59 Last Admin: 09/14/16 20:44 Dose: 20 mg Simvastatin (Zocor) 40 mg PO HS [facility] PRN Reason: Protocol Stop: 11/11/16 20:59 Last Admin: 09/14/16 20:43 Dose: 40 mg Spironolactone (Aldactone) 25 mg PO DAILY [facility] Stop: 11/12/16 08:59 Last Admin: 09/15/16 09:19 Dose: 25 mg Valsartan (Diovan) 160 mg PO DAILY [facility] Stop: 11/12/16 08:59 Last Admin: 09/15/16 09:20 Dose: 160 mg Zolpidem Tartrate (Ambien) 5 mg PO HS PRN PRN Reason: Insomnia Stop: 11/11/16 13:43 General: no acute distress, other (obese) HEENT: atraumatic Neck: supple, no thyromegaly, no lymphadenopathy Cardiovascular: S1S2, regular Lungs: clear to auscultation bilaterally, clear to percussion Abdomen: soft, no tender, no distended, no mass Extremities: other (left foot : 2nd tor wound with scab and surrounding redness. ), no cyanosis, no clubbing, no edema Neurological: awake, alert Skin: intact Infectious Disease Assmt/Plan - Assessment Assessment: Impression: 1. Cellulitis of left foot, 2nd toe, with superficial small wound. - Plan Plan: Continue clinda po and wound care.
--- NOTE | 2016-09-15 23:36 | Progress Notes ---
SUBJECTIVE: Chart reviewed and the patient interviewed. Also discussed the patient's condition with the staff and reviewed records and labs. The patient is still withdrawn and is still in a depressed mood. The patient also is still confused and he is still feeling hopeless and helpless. Also, he is still interacting minimally with others. The patient also seems to be constipated and staff noted that the patient was digging into himself. The patient also still stays by himself in his room most of the time and does not want to leave his room. Otherwise, the patient has been compliant with taking his medications with no side effects of medications. ASSESSMENT: The patient is still psychotic and depressed. TREATMENT PLAN: We will increase Risperdal to 1 mg every day. Also, we will increase Celexa to 30 mg everyday. We will continue to monitor his behavior and his condition closely. JOB# [id number]
[2016-09-16] MEDS: Albuterol/Ipratropium Neb 3 ML AERS HHN SCH ×4 (01:15→23:08)
[2016-09-16] MEDS: Levothyroxine 0.1 Mg Tab PO SCH (07:05)
[2016-09-16] MEDS: Insulin Detemir 100 units/mL 10mL Vial SUBQ SCH ×2 (07:09→18:57)
[2016-09-16] MEDS: INSULIN ASPART SLIDING SCALE 100 UNITS/ML UNIT SUBQ SCH ×4 (07:09→21:28)
[2016-09-16] MEDS: Pantoprazole 40 mg EC Tab PO SCH (10:14)
[2016-09-16] MEDS: Potassium Chloride Elixir 20 mEq /15 mL UDC PO SCH (10:17)
[2016-09-16] MEDS: Betamethasone/Clotrimazole Cream 15 gm Tube TP SCH ×3 (10:17→21:23)
--- NOTE | 2016-09-16 11:16 | General Progress Note ---
Subjective - Review of Systems Subjective: no change Objective - Results Result Diagrams: 09/15/16 07:50 09/15/16 07:50 Recent Labs: Laboratory Last Values WBC 9.1 Th/cmm (4.8-10.8) 09/15/16 07:50 RBC 5.60 Mil/cmm (3.80-5.80) 09/15/16 07:50 Hgb 16.0 gm/dL (12.6-17.4) 09/15/16 07:50 Hct 47.3 % (39.0-49.0) 09/15/16 07:50 MCV 84.3 fl (80-99) 09/15/16 07:50 MCH 28.6 pg (27.0-31.0) 09/15/16 07:50 MCHC Differential 33.9 pg (28.0-36.0) 09/15/16 07:50 RDW 12.7 % (11.5-20.0) 09/15/16 07:50 Plt Count 213 Th/cmm (150-400) 09/15/16 07:50 MPV 7.7 fl 09/15/16 07:50 Neutrophils % 82.0 % (40.0-80.0) H 09/15/16 07:50 Lymphocytes % 11.5 % (20.0-50.0) L 09/15/16 07:50 Monocytes % 4.4 % (2.0-10.0) 09/15/16 07:50 Eosinophils % 1.9 % (0.0-5.0) 09/15/16 07:50 Basophils % 0.2 % (0.0-2.0) 09/15/16 07:50 Sodium 127 mEq/L (136-145) L 09/15/16 07:50 Potassium 4.3 mEq/L (3.5-5.1) 09/15/16 07:50 Chloride 91 mEq/L (98-107) L 09/15/16 07:50 Carbon Dioxide 33.3 mEq/L (21.0-31.0) H 09/15/16 07:50 Anion Gap 7.0 (7.0-16.0) 09/15/16 07:50 BUN 18 mg/dL (7-25) 09/15/16 07:50 Creatinine 0.8 mg/dL (0.7-1.3) 09/15/16 07:50 Est GFR ( Amer) TNP 09/15/16 07:50 Est GFR (Non-Af Amer) TNP 09/15/16 07:50 BUN/Creatinine Ratio 22.5 09/15/16 07:50 Glucose 243 mg/dL (70-105) H 09/15/16 07:50 POC Glucose 286 MG/DL (70 - 105) H 09/16/16 05:39 Hemoglobin A1c % 12.2 % (4.0-6.0) H 09/12/16 18:30 Calcium 10.0 mg/dL (8.6-10.3) 09/15/16 07:50 - Physical Exam Vitals and I&O: Vital Signs Temp 98 F 09/15/16 19:45 Pulse 85 09/16/16 10:17 Resp 18 09/16/16 07:25 BP 145/67 09/16/16 10:17 Pulse Ox 94 09/16/16 07:25 Intake & Output 09/15/16 09/16/16 09/16/16 18:59 06:59 18:59 Intake Total 240 Balance 240 Intake: Oral 240 Other: # Voids 3 1 Active Medications: Current Medications Acetaminophen (Tylenol) 650 mg PO Q6HR PRN PRN Reason: mild pain Stop: 11/11/16 13:30 Acetaminophen/Hydrocodone Bitart ([place] 10 Mg/325 Mg) 1 tab PO Q6H PRN PRN Reason: Pain (Moderate-Severe) Stop: 11/11/16 13:30 Al Hydrox/Mg Hydrox/Simethicone (Maalox) 30 ml PO Q6H PRN PRN Reason: GI DISTRESS Stop: 11/11/16 13:43 Albuterol/Ipratropium (Duoneb Neb) 3 ml HHN Q8HRT [facility] Stop: 11/11/16 14:59 Last Admin: 09/16/16 07:22 Dose: 3 ml Albuterol/Ipratropium (Duoneb Neb) 3 ml HHN Q2H PRN PRN Reason: Wheezing Stop: 11/13/16 16:02 Last Admin: 09/14/16 20:24 Dose: 3 ml Aspirin (Ecotrin) 81 mg PO DAILY [facility] Stop: 11/12/16 08:59 Last Admin: 09/16/16 10:13 Dose: 81 mg Betamethasone/Clotrimazole (Lotrisone Cream) 1 appl TP TID [facility] Stop: 11/13/16 20:59 Last Admin: 09/16/16 10:17 Dose: 1 appl Carisoprodol (Soma) 350 mg PO Q8HR PRN PRN Reason: severe muscle spasms Stop: 11/14/16 11:10 Last Admin: 09/16/16 10:30 Dose: 350 mg Carvedilol (Coreg) 3.125 mg PO BID [facility] Stop: 11/11/16 16:59 Last Admin: 09/16/16 10:17 Dose: 3.125 mg Citalopram Hydrobromide (Celexa) 30 mg PO DAILY [facility] PRN Reason: Protocol Stop: 11/12/16 08:59 Last Admin: 09/16/16 10:12 Dose: 30 mg Clindamycin HCl (Cleocin Hcl) 150 mg PO QID [facility] Stop: 09/24/16 20:59 Last Admin: 09/16/16 10:13 Dose: 150 mg Docusate Sodium (Colace) 500 mg PO BID [facility] Stop: 11/12/16 09:44 Last Admin: 09/16/16 10:10 Dose: 500 mg Furosemide (Lasix) 40 mg PO BID [facility] Stop: 11/11/16 16:59 Last Admin: 09/16/16 10:16 Dose: 40 mg Hydroxyzine Pamoate (Vistaril) 25 mg PO Q4HR PRN; Protocol PRN Reason: Anxiety Stop: 11/13/16 13:36 Insulin Aspart (Novolog Insulin Sliding Scale) 0 units SUBQ ACHS [facility] PRN Reason: Protocol Stop: 11/11/16 16:29 Last Admin: 09/16/16 07:09 Dose: 4 units Insulin Detemir (Levemir Insulin) 40 units SUBQ QDAC [facility] Stop: 11/12/16 07:29 Last Admin: 09/16/16 07:09 Dose: 40 units Insulin Detemir (Levemir Insulin) 30 units SUBQ QDIPM [facility] Stop: 11/11/16 17:44 Last Admin: 09/15/16 17:41 Dose: 30 unit Levothyroxine Sodium (Synthroid) 0.1 mg PO QDAC [facility] Stop: 11/12/16 07:29 Last Admin: 09/16/16 07:05 Dose: 0.1 mg Lorazepam (Ativan) 1 mg IVP Q4H PRN; Protocol PRN Reason: Anxiety/Agitation Stop: 11/11/16 13:43 Magnesium Hydroxide (Milk Of Magnesia) 30 ml PO DAILY PRN PRN Reason: Constipation Stop: 11/11/16 13:43 Last Admin: 09/14/16 16:58 Dose: 30 ml Mupirocin (Bactroban Oint) 1 appl NS BID [facility] Stop: 09/19/16 09:01 Last Admin: 09/16/16 10:17 Dose: 1 appl Ondansetron HCl (Zofran Odt) 4 mg PO TID PRN PRN Reason: Nausea / Vomiting Stop: 11/11/16 13:30 Pantoprazole Sodium (Protonix) 40 mg PO DAILY [facility] Stop: 11/12/16 08:59 Last Admin: 09/16/16 10:14 Dose: 40 mg Potassium Chloride (Potassium Chloride Elixir) 16 meq PO DAILY [facility] Stop: 11/12/16 08:59 Last Admin: 09/16/16 10:17 Dose: 16 meq Risperidone (Risperdal) 1 mg PO DAILY [facility] PRN Reason: Protocol Stop: 11/12/16 08:59 Last Admin: 09/16/16 10:10 Dose: 1 mg Rivaroxaban (Xarelto) 20 mg PO HS [facility] Stop: 11/11/16 20:59 Last Admin: 09/15/16 20:35 Dose: 20 mg Simvastatin (Zocor) 40 mg PO HS [facility] PRN Reason: Protocol Stop: 11/11/16 20:59 Last Admin: 09/15/16 21:00 Dose: 40 mg Spironolactone (Aldactone) 25 mg PO DAILY [facility] Stop: 11/12/16 08:59 Last Admin: 09/16/16 10:16 Dose: 25 mg Valsartan (Diovan) 160 mg PO DAILY [facility] Stop: 11/12/16 08:59 Last Admin: 09/16/16 10:32 Dose: Not Given Zolpidem Tartrate (Ambien) 5 mg PO HS PRN PRN Reason: Insomnia Stop: 11/11/16 13:43 Assessment/Plan - Assessment Assessment: dm2 psychosis
--- NOTE | 2016-09-16 13:39 | Infectious Disease Prog Note ---
Infectious Disease Subjective - Review of Systems Service Date: 09/16/16 Subjective: no new change. Infectious Disease Objective - Results Result Diagrams: 09/15/16 07:50 09/15/16 07:50 Recent Labs: Laboratory Last Values WBC 9.1 Th/cmm (4.8-10.8) 09/15/16 07:50 RBC 5.60 Mil/cmm (3.80-5.80) 09/15/16 07:50 Hgb 16.0 gm/dL (12.6-17.4) 09/15/16 07:50 Hct 47.3 % (39.0-49.0) 09/15/16 07:50 MCV 84.3 fl (80-99) 09/15/16 07:50 MCH 28.6 pg (27.0-31.0) 09/15/16 07:50 MCHC Differential 33.9 pg (28.0-36.0) 09/15/16 07:50 RDW 12.7 % (11.5-20.0) 09/15/16 07:50 Plt Count 213 Th/cmm (150-400) 09/15/16 07:50 MPV 7.7 fl 09/15/16 07:50 Neutrophils % 82.0 % (40.0-80.0) H 09/15/16 07:50 Lymphocytes % 11.5 % (20.0-50.0) L 09/15/16 07:50 Monocytes % 4.4 % (2.0-10.0) 09/15/16 07:50 Eosinophils % 1.9 % (0.0-5.0) 09/15/16 07:50 Basophils % 0.2 % (0.0-2.0) 09/15/16 07:50 Sodium 127 mEq/L (136-145) L 09/15/16 07:50 Potassium 4.3 mEq/L (3.5-5.1) 09/15/16 07:50 Chloride 91 mEq/L (98-107) L 09/15/16 07:50 Carbon Dioxide 33.3 mEq/L (21.0-31.0) H 09/15/16 07:50 Anion Gap 7.0 (7.0-16.0) 09/15/16 07:50 BUN 18 mg/dL (7-25) 09/15/16 07:50 Creatinine 0.8 mg/dL (0.7-1.3) 09/15/16 07:50 Est GFR ( Amer) TNP 09/15/16 07:50 Est GFR (Non-Af Amer) TNP 09/15/16 07:50 BUN/Creatinine Ratio 22.5 09/15/16 07:50 Glucose 243 mg/dL (70-105) H 09/15/16 07:50 POC Glucose 389 MG/DL (70 - 105) H 09/16/16 11:43 Hemoglobin A1c % 12.2 % (4.0-6.0) H 09/12/16 18:30 Calcium 10.0 mg/dL (8.6-10.3) 09/15/16 07:50 - Physical Exam Vitals and I&O: Vital Signs Temp 98 F 09/15/16 19:45 Pulse 85 09/16/16 10:17 Resp 18 09/16/16 07:25 BP 145/67 09/16/16 10:17 Pulse Ox 94 09/16/16 07:25 Intake & Output 09/15/16 09/16/16 09/16/16 18:59 06:59 18:59 Intake Total 240 Balance 240 Intake: Oral 240 Other: # Voids 3 1 Active Medications: Current Medications Acetaminophen (Tylenol) 650 mg PO Q6HR PRN PRN Reason: mild pain Stop: 11/11/16 13:30 Acetaminophen/Hydrocodone Bitart ([place] 10 Mg/325 Mg) 1 tab PO Q6H PRN PRN Reason: Pain (Moderate-Severe) Stop: 11/11/16 13:30 Al Hydrox/Mg Hydrox/Simethicone (Maalox) 30 ml PO Q6H PRN PRN Reason: GI DISTRESS Stop: 11/11/16 13:43 Albuterol/Ipratropium (Duoneb Neb) 3 ml HHN Q8HRT [facility] Stop: 11/11/16 14:59 Last Admin: 09/16/16 07:22 Dose: 3 ml Albuterol/Ipratropium (Duoneb Neb) 3 ml HHN Q2H PRN PRN Reason: Wheezing Stop: 11/13/16 16:02 Last Admin: 09/14/16 20:24 Dose: 3 ml Aspirin (Ecotrin) 81 mg PO DAILY [facility] Stop: 11/12/16 08:59 Last Admin: 09/16/16 10:13 Dose: 81 mg Betamethasone/Clotrimazole (Lotrisone Cream) 1 appl TP TID [facility] Stop: 11/13/16 20:59 Last Admin: 09/16/16 10:17 Dose: 1 appl Carisoprodol (Soma) 350 mg PO Q8HR PRN PRN Reason: severe muscle spasms Stop: 11/14/16 11:10 Last Admin: 09/16/16 10:30 Dose: 350 mg Carvedilol (Coreg) 3.125 mg PO BID [facility] Stop: 11/11/16 16:59 Last Admin: 09/16/16 10:17 Dose: 3.125 mg Citalopram Hydrobromide (Celexa) 30 mg PO DAILY [facility] PRN Reason: Protocol Stop: 11/12/16 08:59 Last Admin: 09/16/16 10:12 Dose: 30 mg Clindamycin HCl (Cleocin Hcl) 150 mg PO QID [facility] Stop: 09/24/16 20:59 Last Admin: 09/16/16 10:13 Dose: 150 mg Docusate Sodium (Colace) 500 mg PO BID [facility] Stop: 11/12/16 09:44 Last Admin: 09/16/16 10:10 Dose: 500 mg Furosemide (Lasix) 40 mg PO BID [facility] Stop: 11/11/16 16:59 Last Admin: 09/16/16 10:16 Dose: 40 mg Hydroxyzine Pamoate (Vistaril) 25 mg PO Q4HR PRN; Protocol PRN Reason: Anxiety Stop: 11/13/16 13:36 Insulin Aspart (Novolog Insulin Sliding Scale) 0 units SUBQ ACHS [facility] PRN Reason: Protocol Stop: 11/11/16 16:29 Last Admin: 09/16/16 07:09 Dose: 4 units Insulin Detemir (Levemir Insulin) 40 units SUBQ QDAC [facility] Stop: 11/12/16 07:29 Last Admin: 09/16/16 07:09 Dose: 40 units Insulin Detemir (Levemir Insulin) 30 units SUBQ QDIPM [facility] Stop: 11/11/16 17:44 Last Admin: 09/15/16 17:41 Dose: 30 unit Levothyroxine Sodium (Synthroid) 0.1 mg PO QDAC [facility] Stop: 11/12/16 07:29 Last Admin: 09/16/16 07:05 Dose: 0.1 mg Lorazepam (Ativan) 1 mg IVP Q4H PRN; Protocol PRN Reason: Anxiety/Agitation Stop: 11/11/16 13:43 Magnesium Hydroxide (Milk Of Magnesia) 30 ml PO DAILY PRN PRN Reason: Constipation Stop: 11/11/16 13:43 Last Admin: 09/14/16 16:58 Dose: 30 ml Mupirocin (Bactroban Oint) 1 appl NS BID [facility] Stop: 09/19/16 09:01 Last Admin: 09/16/16 10:17 Dose: 1 appl Ondansetron HCl (Zofran Odt) 4 mg PO TID PRN PRN Reason: Nausea / Vomiting Stop: 11/11/16 13:30 Pantoprazole Sodium (Protonix) 40 mg PO DAILY [facility] Stop: 11/12/16 08:59 Last Admin: 09/16/16 10:14 Dose: 40 mg Potassium Chloride (Potassium Chloride Elixir) 16 meq PO DAILY [facility] Stop: 11/12/16 08:59 Last Admin: 09/16/16 10:17 Dose: 16 meq Risperidone (Risperdal) 1 mg PO DAILY [facility] PRN Reason: Protocol Stop: 11/12/16 08:59 Last Admin: 09/16/16 10:10 Dose: 1 mg Rivaroxaban (Xarelto) 20 mg PO HS [facility] Stop: 11/11/16 20:59 Last Admin: 09/15/16 20:35 Dose: 20 mg Simvastatin (Zocor) 40 mg PO HS [facility] PRN Reason: Protocol Stop: 11/11/16 20:59 Last Admin: 09/15/16 21:00 Dose: 40 mg Spironolactone (Aldactone) 25 mg PO DAILY [facility] Stop: 11/12/16 08:59 Last Admin: 09/16/16 10:16 Dose: 25 mg Valsartan (Diovan) 160 mg PO DAILY [facility] Stop: 11/12/16 08:59 Last Admin: 09/16/16 10:32 Dose: Not Given Zolpidem Tartrate (Ambien) 5 mg PO HS PRN PRN Reason: Insomnia Stop: 11/11/16 13:43 General: no acute distress, other (obese) HEENT: atraumatic, normocephalic, PERRLA, EOMI, moist mucous membrane Neck: supple Cardiovascular: S1S2, regular Lungs: clear to auscultation bilaterally, clear to percussion Abdomen: soft, no tender, no distended Extremities: other (left 2nd toe wound.), no cyanosis, no clubbing, no edema Neurological: awake, alert Infectious Disease Assmt/Plan - Assessment Assessment: Impression: 1. Cellulitis of left foot, 2nd toe, with superficial small wound. 2. Psychosis. 3. MRSA colonization. - Plan Plan: Continue clinda po and wound care.
[2016-09-16] MEDS: Magnesium Hydroxide (MOM) 30 mL UDC PO PRN (17:39)
--- NOTE | 2016-09-17 05:28 | Progress Notes ---
Covering for Dr. Red. Case was discussed with staff of the patient, reviewed records. This is a 76-year-old male who was admitted on 09/12/2016, on a hold for danger to self and others. The patient threatened staff and peers at [place]way [place] he lives and that he was going to kill himself and someone else according to the hold. The patient said that he has been stressed out and has been angry lately, also he has been feeling hopeless and helpless. He said that he has a history of depression. He has been feeling more stressed out and more angry lately. The patient said that he started to have a lot of tension and thoughts of suicidal with no specific plan. For the history of depression, he has been on Lexapro. The patient has been isolating himself. He is overweight. He is safe in bed mostly. He is compliant with the medication with no side effects and he has been on Celexa 30 mg daily. He is also on Risperdal 1 mg daily that was increased yesterday with no side effects. He continues to be unpredictable, impulsive and easily agitated. When I asked him if he wants to harm himself or others, he denies. He is minimizing the events let to his admission and we will continue to work with the patient in group therapy, milieu therapy and adjust the medication as needed. JOB# [id number]
[2016-09-17] MEDS: Levothyroxine 0.1 Mg Tab PO SCH (07:04)
[2016-09-17] MEDS: INSULIN ASPART SLIDING SCALE 100 UNITS/ML UNIT SUBQ SCH ×4 (07:11→21:53)
[2016-09-17] MEDS: Insulin Detemir 100 units/mL 10mL Vial SUBQ SCH ×2 (07:11→17:17)
[2016-09-17] MEDS: Albuterol/Ipratropium Neb 3 ML AERS HHN SCH ×3 (07:30→23:30)
[2016-09-17] MEDS: Potassium Chloride Elixir 20 mEq /15 mL UDC PO SCH (08:45)
[2016-09-17] MEDS: Pantoprazole 40 mg EC Tab PO SCH (08:47)
[2016-09-17] MEDS: Betamethasone/Clotrimazole Cream 15 gm Tube TP SCH ×3 (08:49→20:59)
--- NOTE | 2016-09-17 08:52 | General Progress Note ---
Subjective - Review of Systems Subjective: no change Objective - Results Result Diagrams: 09/15/16 07:50 09/15/16 07:50 Recent Labs: Laboratory Last Values WBC 9.1 Th/cmm (4.8-10.8) 09/15/16 07:50 RBC 5.60 Mil/cmm (3.80-5.80) 09/15/16 07:50 Hgb 16.0 gm/dL (12.6-17.4) 09/15/16 07:50 Hct 47.3 % (39.0-49.0) 09/15/16 07:50 MCV 84.3 fl (80-99) 09/15/16 07:50 MCH 28.6 pg (27.0-31.0) 09/15/16 07:50 MCHC Differential 33.9 pg (28.0-36.0) 09/15/16 07:50 RDW 12.7 % (11.5-20.0) 09/15/16 07:50 Plt Count 213 Th/cmm (150-400) 09/15/16 07:50 MPV 7.7 fl 09/15/16 07:50 Neutrophils % 82.0 % (40.0-80.0) H 09/15/16 07:50 Lymphocytes % 11.5 % (20.0-50.0) L 09/15/16 07:50 Monocytes % 4.4 % (2.0-10.0) 09/15/16 07:50 Eosinophils % 1.9 % (0.0-5.0) 09/15/16 07:50 Basophils % 0.2 % (0.0-2.0) 09/15/16 07:50 Sodium 127 mEq/L (136-145) L 09/15/16 07:50 Potassium 4.3 mEq/L (3.5-5.1) 09/15/16 07:50 Chloride 91 mEq/L (98-107) L 09/15/16 07:50 Carbon Dioxide 33.3 mEq/L (21.0-31.0) H 09/15/16 07:50 Anion Gap 7.0 (7.0-16.0) 09/15/16 07:50 BUN 18 mg/dL (7-25) 09/15/16 07:50 Creatinine 0.8 mg/dL (0.7-1.3) 09/15/16 07:50 Est GFR ( Amer) TNP 09/15/16 07:50 Est GFR (Non-Af Amer) TNP 09/15/16 07:50 BUN/Creatinine Ratio 22.5 09/15/16 07:50 Glucose 243 mg/dL (70-105) H 09/15/16 07:50 POC Glucose 315 MG/DL (70 - 105) H 09/17/16 06:23 Hemoglobin A1c % 12.2 % (4.0-6.0) H 09/12/16 18:30 Calcium 10.0 mg/dL (8.6-10.3) 09/15/16 07:50 - Physical Exam Vitals and I&O: Vital Signs Temp 97.2 F 09/17/16 06:53 Pulse 75 09/17/16 07:31 Resp 18 09/17/16 07:31 BP 142/79 09/17/16 06:53 Pulse Ox 94 09/17/16 07:31 Intake & Output 09/16/16 09/17/16 09/17/16 18:59 06:59 18:59 Intake Total 2400 120 Output Total 1800 2700 Balance 600 -2580 Intake: Oral 2400 120 Output: Urine 1800 2700 Other: # Bowel Movements 0 Stool Characteristics Soft Formed Brown Active Medications: Current Medications Acetaminophen (Tylenol) 650 mg PO Q6HR PRN PRN Reason: mild pain Stop: 11/11/16 13:30 Acetaminophen/Hydrocodone Bitart ([place] 10 Mg/325 Mg) 1 tab PO Q6H PRN PRN Reason: Pain (Moderate-Severe) Stop: 11/11/16 13:30 Al Hydrox/Mg Hydrox/Simethicone (Maalox) 30 ml PO Q6H PRN PRN Reason: GI DISTRESS Stop: 11/11/16 13:43 Albuterol/Ipratropium (Duoneb Neb) 3 ml HHN Q8HRT [facility] Stop: 11/11/16 14:59 Last Admin: 09/17/16 07:30 Dose: 3 ml Albuterol/Ipratropium (Duoneb Neb) 3 ml HHN Q2H PRN PRN Reason: Wheezing Stop: 11/13/16 16:02 Last Admin: 09/14/16 20:24 Dose: 3 ml Aspirin (Ecotrin) 81 mg PO DAILY [facility] Stop: 11/12/16 08:59 Last Admin: 09/16/16 10:13 Dose: 81 mg Betamethasone/Clotrimazole (Lotrisone Cream) 1 appl TP TID [facility] Stop: 11/13/16 20:59 Last Admin: 09/16/16 21:23 Dose: 1 appl Carisoprodol (Soma) 350 mg PO Q8HR PRN PRN Reason: severe muscle spasms Stop: 11/14/16 11:10 Last Admin: 09/16/16 10:30 Dose: 350 mg Carvedilol (Coreg) 3.125 mg PO BID [facility] Stop: 11/11/16 16:59 Last Admin: 09/16/16 17:40 Dose: 3.125 mg Citalopram Hydrobromide (Celexa) 30 mg PO DAILY [facility] PRN Reason: Protocol Stop: 11/12/16 08:59 Last Admin: 09/16/16 10:12 Dose: 30 mg Clindamycin HCl (Cleocin Hcl) 150 mg PO QID [facility] Stop: 09/24/16 20:59 Last Admin: 09/16/16 21:23 Dose: 150 mg Docusate Sodium (Colace) 500 mg PO BID [facility] Stop: 11/12/16 09:44 Last Admin: 09/16/16 17:39 Dose: 500 mg Furosemide (Lasix) 40 mg PO BID [facility] Stop: 11/11/16 16:59 Last Admin: 09/16/16 17:39 Dose: 40 mg Hydroxyzine Pamoate (Vistaril) 25 mg PO Q4HR PRN; Protocol PRN Reason: Anxiety Stop: 11/13/16 13:36 Insulin Aspart (Novolog Insulin Sliding Scale) 0 units SUBQ ACHS [facility] PRN Reason: Protocol Stop: 11/11/16 16:29 Last Admin: 09/17/16 07:11 Dose: 6 units Insulin Detemir (Levemir Insulin) 40 units SUBQ QDAC [facility] Stop: 11/12/16 07:29 Last Admin: 09/17/16 07:11 Dose: 40 units Insulin Detemir (Levemir Insulin) 30 units SUBQ QDIPM [facility] Stop: 11/11/16 17:44 Last Admin: 09/16/16 18:57 Dose: 30 unit Levothyroxine Sodium (Synthroid) 0.1 mg PO QDAC [facility] Stop: 11/12/16 07:29 Last Admin: 09/17/16 07:04 Dose: 0.1 mg Lorazepam (Ativan) 1 mg IVP Q4H PRN; Protocol PRN Reason: Anxiety/Agitation Stop: 11/11/16 13:43 Magnesium Hydroxide (Milk Of Magnesia) 30 ml PO DAILY PRN PRN Reason: Constipation Stop: 11/11/16 13:43 Last Admin: 09/16/16 17:39 Dose: 30 ml Mupirocin (Bactroban Oint) 1 appl NS BID [facility] Stop: 09/19/16 09:01 Last Admin: 09/16/16 18:57 Dose: 1 appl Ondansetron HCl (Zofran Odt) 4 mg PO TID PRN PRN Reason: Nausea / Vomiting Stop: 11/11/16 13:30 Pantoprazole Sodium (Protonix) 40 mg PO DAILY [facility] Stop: 11/12/16 08:59 Last Admin: 09/16/16 10:14 Dose: 40 mg Potassium Chloride (Potassium Chloride Elixir) 16 meq PO DAILY [facility] Stop: 11/12/16 08:59 Last Admin: 09/16/16 10:17 Dose: 16 meq Risperidone (Risperdal) 1 mg PO DAILY [facility] PRN Reason: Protocol Stop: 11/12/16 08:59 Last Admin: 09/16/16 10:10 Dose: 1 mg Rivaroxaban (Xarelto) 20 mg PO HS [facility] Stop: 11/11/16 20:59 Last Admin: 09/16/16 21:23 Dose: 20 mg Simvastatin (Zocor) 40 mg PO HS [facility] PRN Reason: Protocol Stop: 11/11/16 20:59 Last Admin: 09/16/16 21:23 Dose: 40 mg Spironolactone (Aldactone) 25 mg PO DAILY [facility] Stop: 11/12/16 08:59 Last Admin: 09/16/16 10:16 Dose: 25 mg Valsartan (Diovan) 160 mg PO DAILY [facility] Stop: 11/12/16 08:59 Last Admin: 09/16/16 10:32 Dose: Not Given Zolpidem Tartrate (Ambien) 5 mg PO HS PRN PRN Reason: Insomnia Stop: 11/11/16 13:43 Assessment/Plan - Assessment Assessment: dm2 psychosis
--- NOTE | 2016-09-17 23:16 | Infectious Disease Prog Note ---
Infectious Disease Subjective - Review of Systems Service Date: 09/17/16 Subjective: no new change. Infectious Disease Objective - Results Result Diagrams: 09/15/16 07:50 09/15/16 07:50 Recent Labs: Laboratory Last Values WBC 9.1 Th/cmm (4.8-10.8) 09/15/16 07:50 RBC 5.60 Mil/cmm (3.80-5.80) 09/15/16 07:50 Hgb 16.0 gm/dL (12.6-17.4) 09/15/16 07:50 Hct 47.3 % (39.0-49.0) 09/15/16 07:50 MCV 84.3 fl (80-99) 09/15/16 07:50 MCH 28.6 pg (27.0-31.0) 09/15/16 07:50 MCHC Differential 33.9 pg (28.0-36.0) 09/15/16 07:50 RDW 12.7 % (11.5-20.0) 09/15/16 07:50 Plt Count 213 Th/cmm (150-400) 09/15/16 07:50 MPV 7.7 fl 09/15/16 07:50 Neutrophils % 82.0 % (40.0-80.0) H 09/15/16 07:50 Lymphocytes % 11.5 % (20.0-50.0) L 09/15/16 07:50 Monocytes % 4.4 % (2.0-10.0) 09/15/16 07:50 Eosinophils % 1.9 % (0.0-5.0) 09/15/16 07:50 Basophils % 0.2 % (0.0-2.0) 09/15/16 07:50 Sodium 127 mEq/L (136-145) L 09/15/16 07:50 Potassium 4.3 mEq/L (3.5-5.1) 09/15/16 07:50 Chloride 91 mEq/L (98-107) L 09/15/16 07:50 Carbon Dioxide 33.3 mEq/L (21.0-31.0) H 09/15/16 07:50 Anion Gap 7.0 (7.0-16.0) 09/15/16 07:50 BUN 18 mg/dL (7-25) 09/15/16 07:50 Creatinine 0.8 mg/dL (0.7-1.3) 09/15/16 07:50 Est GFR ( Amer) TNP 09/15/16 07:50 Est GFR (Non-Af Amer) TNP 09/15/16 07:50 BUN/Creatinine Ratio 22.5 09/15/16 07:50 Glucose 243 mg/dL (70-105) H 09/15/16 07:50 POC Glucose 339 MG/DL (70 - 105) H 09/17/16 20:30 Hemoglobin A1c % 12.2 % (4.0-6.0) H 09/12/16 18:30 Calcium 10.0 mg/dL (8.6-10.3) 09/15/16 07:50 - Physical Exam Vitals and I&O: Vital Signs Temp 97.2 F 09/17/16 21:13 Pulse 82 09/17/16 21:13 Resp 18 09/17/16 21:13 BP 149/67 09/17/16 21:13 Pulse Ox 97 09/17/16 21:13 Intake & Output 09/17/16 09/17/16 09/18/16 06:59 18:59 06:59 Intake Total 120 400 Output Total 2700 201 Balance -2580 199 Intake: Oral 120 400 Output: Urine 2700 200 Stool 1 Other: Stool Characteristics Soft Formed Brown Active Medications: Current Medications Acetaminophen (Tylenol) 650 mg PO Q6HR PRN PRN Reason: mild pain Stop: 11/11/16 13:30 Acetaminophen/Hydrocodone Bitart ([place] 10 Mg/325 Mg) 1 tab PO Q6H PRN PRN Reason: Pain (Moderate-Severe) Stop: 11/11/16 13:30 Al Hydrox/Mg Hydrox/Simethicone (Maalox) 30 ml PO Q6H PRN PRN Reason: GI DISTRESS Stop: 11/11/16 13:43 Albuterol/Ipratropium (Duoneb Neb) 3 ml HHN Q8HRT [facility] Stop: 11/11/16 14:59 Last Admin: 09/17/16 16:27 Dose: 3 ml Albuterol/Ipratropium (Duoneb Neb) 3 ml HHN Q2H PRN PRN Reason: Wheezing Stop: 11/13/16 16:02 Last Admin: 09/14/16 20:24 Dose: 3 ml Aspirin (Ecotrin) 81 mg PO DAILY [facility] Stop: 11/12/16 08:59 Last Admin: 09/17/16 08:46 Dose: 81 mg Betamethasone/Clotrimazole (Lotrisone Cream) 1 appl TP TID [facility] Stop: 11/13/16 20:59 Last Admin: 09/17/16 20:59 Dose: 1 appl Carisoprodol (Soma) 350 mg PO Q8HR PRN PRN Reason: severe muscle spasms Stop: 11/14/16 11:10 Last Admin: 09/16/16 10:30 Dose: 350 mg Carvedilol (Coreg) 3.125 mg PO BID [facility] Stop: 11/11/16 16:59 Last Admin: 09/17/16 16:45 Dose: 3.125 mg Citalopram Hydrobromide (Celexa) 30 mg PO DAILY [facility] PRN Reason: Protocol Stop: 11/12/16 08:59 Last Admin: 09/17/16 08:47 Dose: 30 mg Clindamycin HCl (Cleocin Hcl) 150 mg PO QID [facility] Stop: 09/24/16 20:59 Last Admin: 09/17/16 20:59 Dose: 150 mg Docusate Sodium (Colace) 500 mg PO BID [facility] Stop: 11/12/16 09:44 Last Admin: 09/17/16 16:44 Dose: 500 mg Furosemide (Lasix) 40 mg PO BID [facility] Stop: 11/11/16 16:59 Last Admin: 09/17/16 16:44 Dose: 40 mg Hydroxyzine Pamoate (Vistaril) 25 mg PO Q4HR PRN; Protocol PRN Reason: Anxiety Stop: 11/13/16 13:36 Insulin Aspart (Novolog Insulin Sliding Scale) 0 units SUBQ ACHS [facility] PRN Reason: Protocol Stop: 11/11/16 16:29 Last Admin: 09/17/16 21:53 Dose: 6 units Insulin Detemir (Levemir Insulin) 40 units SUBQ QDAC [facility] Stop: 11/12/16 07:29 Last Admin: 09/17/16 07:11 Dose: 40 units Insulin Detemir (Levemir Insulin) 30 units SUBQ QDIPM [facility] Stop: 11/11/16 17:44 Last Admin: 09/17/16 17:17 Dose: 30 unit Levothyroxine Sodium (Synthroid) 0.1 mg PO QDAC [facility] Stop: 11/12/16 07:29 Last Admin: 09/17/16 07:04 Dose: 0.1 mg Lorazepam (Ativan) 1 mg IVP Q4H PRN; Protocol PRN Reason: Anxiety/Agitation Stop: 11/11/16 13:43 Magnesium Hydroxide (Milk Of Magnesia) 30 ml PO DAILY PRN PRN Reason: Constipation Stop: 11/11/16 13:43 Last Admin: 09/16/16 17:39 Dose: 30 ml Mupirocin (Bactroban Oint) 1 appl NS BID [facility] Stop: 09/19/16 09:01 Last Admin: 09/17/16 17:18 Dose: 1 appl Ondansetron HCl (Zofran Odt) 4 mg PO TID PRN PRN Reason: Nausea / Vomiting Stop: 11/11/16 13:30 Pantoprazole Sodium (Protonix) 40 mg PO DAILY [facility] Stop: 11/12/16 08:59 Last Admin: 09/17/16 08:47 Dose: 40 mg Potassium Chloride (Potassium Chloride Elixir) 16 meq PO DAILY [facility] Stop: 11/12/16 08:59 Last Admin: 09/17/16 08:45 Dose: 16 meq Risperidone (Risperdal) 1 mg PO DAILY [facility] PRN Reason: Protocol Stop: 11/12/16 08:59 Last Admin: 09/17/16 08:46 Dose: 1 mg Rivaroxaban (Xarelto) 20 mg PO HS [facility] Stop: 11/11/16 20:59 Last Admin: 09/17/16 20:59 Dose: 20 mg Simvastatin (Zocor) 40 mg PO HS [facility] PRN Reason: Protocol Stop: 11/11/16 20:59 Last Admin: 09/17/16 20:58 Dose: 40 mg Spironolactone (Aldactone) 25 mg PO DAILY [facility] Stop: 11/12/16 08:59 Last Admin: 09/17/16 08:46 Dose: 25 mg Valsartan (Diovan) 160 mg PO DAILY [facility] Stop: 11/12/16 08:59 Last Admin: 09/17/16 08:46 Dose: 160 mg Zolpidem Tartrate (Ambien) 5 mg PO HS PRN PRN Reason: Insomnia Stop: 11/11/16 13:43 General: no acute distress, other (obese) HEENT: atraumatic Neck: supple, no thyromegaly, no lymphadenopathy Cardiovascular: S1S2, regular Lungs: clear to auscultation bilaterally, clear to percussion Abdomen: soft, no tender, no distended Extremities: other (2nd toe right foot small wound), no cyanosis, no clubbing, no edema Infectious Disease Assmt/Plan - Assessment Assessment: Impression: 1. Cellulitis of left foot, 2nd toe, with superficial small wound. 2. Psychosis. 3. MRSA colonization. - Plan Plan: Continue clinda po and wound care.
--- NOTE | 2016-09-18 01:50 | Progress Notes ---
Case discussed with staff of the patient, reviewed records. Covering for Dr. Red. The patient continues to isolate himself. Continues to be depressed, confused, feeling hopeless and helpless, demanding at times with poor interaction with others. He continues to be unpredictable, impulsive, psychotic, needing redirection. No side effects with the medication, no sedation, no nausea, no extrapyramidal symptoms and he is on Celexa 30 mg daily and Risperdal 1 mg daily and we will continue to work with the patient in group therapy, milieu therapy, adjust the medication as needed. I did consult Dr. Saavedra regarding his decreased sodium level. JOB# [id number]
[2016-09-18] MEDS: Levothyroxine 0.1 Mg Tab PO SCH (06:55)
[2016-09-18] MEDS: INSULIN ASPART SLIDING SCALE 100 UNITS/ML UNIT SUBQ SCH ×4 (06:57→20:51)
[2016-09-18] MEDS: Insulin Detemir 100 units/mL 10mL Vial SUBQ SCH ×2 (06:58→16:53)
[2016-09-18] MEDS: Pantoprazole 40 mg EC Tab PO SCH (08:18)
[2016-09-18] MEDS: Betamethasone/Clotrimazole Cream 15 gm Tube TP SCH ×3 (08:19→20:50)
[2016-09-18] MEDS: Potassium Chloride Elixir 20 mEq /15 mL UDC PO SCH (08:19)
[2016-09-18] MEDS: Albuterol/Ipratropium Neb 3 ML AERS HHN SCH ×2 (08:24→16:11)
--- NOTE | 2016-09-18 09:21 | General Progress Note ---
Subjective - Review of Systems Subjective: no change Objective - Results Result Diagrams: 09/15/16 07:50 09/15/16 07:50 Recent Labs: Laboratory Last Values WBC 9.1 Th/cmm (4.8-10.8) 09/15/16 07:50 RBC 5.60 Mil/cmm (3.80-5.80) 09/15/16 07:50 Hgb 16.0 gm/dL (12.6-17.4) 09/15/16 07:50 Hct 47.3 % (39.0-49.0) 09/15/16 07:50 MCV 84.3 fl (80-99) 09/15/16 07:50 MCH 28.6 pg (27.0-31.0) 09/15/16 07:50 MCHC Differential 33.9 pg (28.0-36.0) 09/15/16 07:50 RDW 12.7 % (11.5-20.0) 09/15/16 07:50 Plt Count 213 Th/cmm (150-400) 09/15/16 07:50 MPV 7.7 fl 09/15/16 07:50 Neutrophils % 82.0 % (40.0-80.0) H 09/15/16 07:50 Lymphocytes % 11.5 % (20.0-50.0) L 09/15/16 07:50 Monocytes % 4.4 % (2.0-10.0) 09/15/16 07:50 Eosinophils % 1.9 % (0.0-5.0) 09/15/16 07:50 Basophils % 0.2 % (0.0-2.0) 09/15/16 07:50 Sodium 127 mEq/L (136-145) L 09/15/16 07:50 Potassium 4.3 mEq/L (3.5-5.1) 09/15/16 07:50 Chloride 91 mEq/L (98-107) L 09/15/16 07:50 Carbon Dioxide 33.3 mEq/L (21.0-31.0) H 09/15/16 07:50 Anion Gap 7.0 (7.0-16.0) 09/15/16 07:50 BUN 18 mg/dL (7-25) 09/15/16 07:50 Creatinine 0.8 mg/dL (0.7-1.3) 09/15/16 07:50 Est GFR ( Amer) TNP 09/15/16 07:50 Est GFR (Non-Af Amer) TNP 09/15/16 07:50 BUN/Creatinine Ratio 22.5 09/15/16 07:50 Glucose 243 mg/dL (70-105) H 09/15/16 07:50 POC Glucose 239 MG/DL (70 - 105) H 09/18/16 06:28 Hemoglobin A1c % 12.2 % (4.0-6.0) H 09/12/16 18:30 Calcium 10.0 mg/dL (8.6-10.3) 09/15/16 07:50 - Physical Exam Vitals and I&O: Vital Signs Temp 97.2 F 09/17/16 21:13 Pulse 81 09/18/16 08:25 Resp 18 09/18/16 08:25 BP 144/73 09/18/16 08:19 Pulse Ox 95 09/18/16 08:25 Intake & Output 09/17/16 09/18/16 09/18/16 18:59 06:59 18:59 Intake Total 400 Output Total 201 Balance 199 Intake: Oral 400 Output: Urine 200 Stool 1 Active Medications: Current Medications Acetaminophen (Tylenol) 650 mg PO Q6HR PRN PRN Reason: mild pain Stop: 11/11/16 13:30 Acetaminophen/Hydrocodone Bitart ([place] 10 Mg/325 Mg) 1 tab PO Q6H PRN PRN Reason: Pain (Moderate-Severe) Stop: 11/11/16 13:30 Al Hydrox/Mg Hydrox/Simethicone (Maalox) 30 ml PO Q6H PRN PRN Reason: GI DISTRESS Stop: 11/11/16 13:43 Albuterol/Ipratropium (Duoneb Neb) 3 ml HHN Q8HRT [facility] Stop: 11/11/16 14:59 Last Admin: 09/18/16 08:24 Dose: 3 ml Albuterol/Ipratropium (Duoneb Neb) 3 ml HHN Q2H PRN PRN Reason: Wheezing Stop: 11/13/16 16:02 Last Admin: 09/14/16 20:24 Dose: 3 ml Aspirin (Ecotrin) 81 mg PO DAILY [facility] Stop: 11/12/16 08:59 Last Admin: 09/18/16 08:16 Dose: 81 mg Betamethasone/Clotrimazole (Lotrisone Cream) 1 appl TP TID [facility] Stop: 11/13/16 20:59 Last Admin: 09/18/16 08:19 Dose: 1 appl Carisoprodol (Soma) 350 mg PO Q8HR PRN PRN Reason: severe muscle spasms Stop: 11/14/16 11:10 Last Admin: 09/16/16 10:30 Dose: 350 mg Carvedilol (Coreg) 3.125 mg PO BID [facility] Stop: 11/11/16 16:59 Last Admin: 09/18/16 08:18 Dose: 3.125 mg Citalopram Hydrobromide (Celexa) 30 mg PO DAILY [facility] PRN Reason: Protocol Stop: 11/12/16 08:59 Last Admin: 09/18/16 08:16 Dose: 30 mg Clindamycin HCl (Cleocin Hcl) 150 mg PO QID [facility] Stop: 09/24/16 20:59 Last Admin: 09/18/16 08:18 Dose: 150 mg Docusate Sodium (Colace) 500 mg PO BID [facility] Stop: 11/12/16 09:44 Last Admin: 09/18/16 08:17 Dose: 500 mg Furosemide (Lasix) 40 mg PO BID [facility] Stop: 11/11/16 16:59 Last Admin: 09/18/16 08:18 Dose: 40 mg Hydroxyzine Pamoate (Vistaril) 25 mg PO Q4HR PRN; Protocol PRN Reason: Anxiety Stop: 11/13/16 13:36 Insulin Aspart (Novolog Insulin Sliding Scale) 0 units SUBQ ACHS [facility] PRN Reason: Protocol Stop: 11/11/16 16:29 Last Admin: 09/18/16 06:57 Dose: 2 units Insulin Detemir (Levemir Insulin) 40 units SUBQ QDAC [facility] Stop: 11/12/16 07:29 Last Admin: 09/18/16 06:58 Dose: 40 units Insulin Detemir (Levemir Insulin) 30 units SUBQ QDIPM [facility] Stop: 11/11/16 17:44 Last Admin: 09/17/16 17:17 Dose: 30 unit Levothyroxine Sodium (Synthroid) 0.1 mg PO QDAC [facility] Stop: 11/12/16 07:29 Last Admin: 09/18/16 06:55 Dose: 0.1 mg Lorazepam (Ativan) 1 mg IVP Q4H PRN; Protocol PRN Reason: Anxiety/Agitation Stop: 11/11/16 13:43 Magnesium Hydroxide (Milk Of Magnesia) 30 ml PO DAILY PRN PRN Reason: Constipation Stop: 11/11/16 13:43 Last Admin: 09/16/16 17:39 Dose: 30 ml Metformin HCl (Glucophage) 850 mg PO BIDWM [facility] Stop: 11/17/16 17:59 Mupirocin (Bactroban Oint) 1 appl NS BID [facility] Stop: 09/19/16 09:01 Last Admin: 09/18/16 08:19 Dose: 1 appl Nateglinide (Starlix) 120 mg PO AC [facility] Stop: 11/17/16 11:29 Ondansetron HCl (Zofran Odt) 4 mg PO TID PRN PRN Reason: Nausea / Vomiting Stop: 11/11/16 13:30 Pantoprazole Sodium (Protonix) 40 mg PO DAILY [facility] Stop: 11/12/16 08:59 Last Admin: 09/18/16 08:18 Dose: 40 mg Potassium Chloride (Potassium Chloride Elixir) 16 meq PO DAILY [facility] Stop: 11/12/16 08:59 Last Admin: 09/18/16 08:19 Dose: 16 meq Risperidone (Risperdal) 1 mg PO DAILY [facility] PRN Reason: Protocol Stop: 11/12/16 08:59 Last Admin: 09/18/16 08:18 Dose: 1 mg Rivaroxaban (Xarelto) 20 mg PO HS [facility] Stop: 11/11/16 20:59 Last Admin: 09/17/16 20:59 Dose: 20 mg Simvastatin (Zocor) 40 mg PO HS [facility] PRN Reason: Protocol Stop: 11/11/16 20:59 Last Admin: 09/17/16 20:58 Dose: 40 mg Spironolactone (Aldactone) 25 mg PO DAILY [facility] Stop: 11/12/16 08:59 Last Admin: 09/18/16 08:17 Dose: 25 mg Valsartan (Diovan) 160 mg PO DAILY [facility] Stop: 11/12/16 08:59 Last Admin: 09/18/16 08:19 Dose: 160 mg Zolpidem Tartrate (Ambien) 5 mg PO HS PRN PRN Reason: Insomnia Stop: 11/11/16 13:43 Assessment/Plan - Assessment Assessment: dm2 psychosis
[2016-09-18] MEDS: Magnesium Hydroxide (MOM) 30 mL UDC PO PRN ×2 (11:23→17:02)
--- NOTE | 2016-09-18 21:11 | Infectious Disease Prog Note ---
Infectious Disease Subjective - Review of Systems Service Date: 09/18/16 Subjective: no new change. Infectious Disease Objective - Results Result Diagrams: 09/15/16 07:50 09/15/16 07:50 Recent Labs: Laboratory Last Values WBC 9.1 Th/cmm (4.8-10.8) 09/15/16 07:50 RBC 5.60 Mil/cmm (3.80-5.80) 09/15/16 07:50 Hgb 16.0 gm/dL (12.6-17.4) 09/15/16 07:50 Hct 47.3 % (39.0-49.0) 09/15/16 07:50 MCV 84.3 fl (80-99) 09/15/16 07:50 MCH 28.6 pg (27.0-31.0) 09/15/16 07:50 MCHC Differential 33.9 pg (28.0-36.0) 09/15/16 07:50 RDW 12.7 % (11.5-20.0) 09/15/16 07:50 Plt Count 213 Th/cmm (150-400) 09/15/16 07:50 MPV 7.7 fl 09/15/16 07:50 Neutrophils % 82.0 % (40.0-80.0) H 09/15/16 07:50 Lymphocytes % 11.5 % (20.0-50.0) L 09/15/16 07:50 Monocytes % 4.4 % (2.0-10.0) 09/15/16 07:50 Eosinophils % 1.9 % (0.0-5.0) 09/15/16 07:50 Basophils % 0.2 % (0.0-2.0) 09/15/16 07:50 Sodium 127 mEq/L (136-145) L 09/15/16 07:50 Potassium 4.3 mEq/L (3.5-5.1) 09/15/16 07:50 Chloride 91 mEq/L (98-107) L 09/15/16 07:50 Carbon Dioxide 33.3 mEq/L (21.0-31.0) H 09/15/16 07:50 Anion Gap 7.0 (7.0-16.0) 09/15/16 07:50 BUN 18 mg/dL (7-25) 09/15/16 07:50 Creatinine 0.8 mg/dL (0.7-1.3) 09/15/16 07:50 Est GFR ( Amer) TNP 09/15/16 07:50 Est GFR (Non-Af Amer) TNP 09/15/16 07:50 BUN/Creatinine Ratio 22.5 09/15/16 07:50 Glucose 243 mg/dL (70-105) H 09/15/16 07:50 POC Glucose 383 MG/DL (70 - 105) H 09/18/16 20:10 Hemoglobin A1c % 12.2 % (4.0-6.0) H 09/12/16 18:30 Calcium 10.0 mg/dL (8.6-10.3) 09/15/16 07:50 - Physical Exam Vitals and I&O: Vital Signs Temp 98.2 F 09/18/16 20:17 Pulse 72 09/18/16 20:17 Resp 20 09/18/16 20:17 BP 133/75 09/18/16 20:17 Pulse Ox 96 09/18/16 20:17 Intake & Output 09/18/16 09/18/16 09/19/16 06:59 18:59 06:59 Intake Total 400 950 480 Output Total 201 750 Balance 199 950 -270 Weight (lbs) 177.128 kg Intake: Oral 400 950 480 Output: Urine 200 750 Stool 1 Other: # Voids 3 # Bowel Movements 0 Active Medications: Current Medications Acetaminophen (Tylenol) 650 mg PO Q6HR PRN PRN Reason: mild pain Stop: 11/11/16 13:30 Acetaminophen/Hydrocodone Bitart ([place] 10 Mg/325 Mg) 1 tab PO Q6H PRN PRN Reason: Pain (Moderate-Severe) Stop: 11/11/16 13:30 Al Hydrox/Mg Hydrox/Simethicone (Maalox) 30 ml PO Q6H PRN PRN Reason: GI DISTRESS Stop: 11/11/16 13:43 Albuterol/Ipratropium (Duoneb Neb) 3 ml HHN Q8HRT [facility] Stop: 11/11/16 14:59 Last Admin: 09/18/16 16:11 Dose: 3 ml Albuterol/Ipratropium (Duoneb Neb) 3 ml HHN Q2H PRN PRN Reason: Wheezing Stop: 11/13/16 16:02 Last Admin: 09/14/16 20:24 Dose: 3 ml Aspirin (Ecotrin) 81 mg PO DAILY [facility] Stop: 11/12/16 08:59 Last Admin: 09/18/16 08:16 Dose: 81 mg Betamethasone/Clotrimazole (Lotrisone Cream) 1 appl TP TID [facility] Stop: 11/13/16 20:59 Last Admin: 09/18/16 20:50 Dose: 1 appl Carisoprodol (Soma) 350 mg PO Q8HR PRN PRN Reason: severe muscle spasms Stop: 11/14/16 11:10 Last Admin: 09/16/16 10:30 Dose: 350 mg Carvedilol (Coreg) 3.125 mg PO BID [facility] Stop: 11/11/16 16:59 Last Admin: 09/18/16 16:31 Dose: 3.125 mg Citalopram Hydrobromide (Celexa) 30 mg PO DAILY [facility] PRN Reason: Protocol Stop: 11/12/16 08:59 Last Admin: 09/18/16 08:16 Dose: 30 mg Clindamycin HCl (Cleocin Hcl) 150 mg PO QID [facility] Stop: 09/24/16 20:59 Last Admin: 09/18/16 20:50 Dose: 150 mg Docusate Sodium (Colace) 500 mg PO BID [facility] Stop: 11/12/16 09:44 Last Admin: 09/18/16 16:31 Dose: 500 mg Furosemide (Lasix) 40 mg PO BID [facility] Stop: 11/11/16 16:59 Last Admin: 09/18/16 16:30 Dose: 40 mg Hydroxyzine Pamoate (Vistaril) 25 mg PO Q4HR PRN; Protocol PRN Reason: Anxiety Stop: 11/13/16 13:36 Insulin Aspart (Novolog Insulin Sliding Scale) 0 units SUBQ ACHS [facility] PRN Reason: Protocol Stop: 11/11/16 16:29 Last Admin: 09/18/16 20:51 Dose: 8 units Insulin Detemir (Levemir Insulin) 40 units SUBQ QDAC [facility] Stop: 11/12/16 07:29 Last Admin: 09/18/16 06:58 Dose: 40 units Insulin Detemir (Levemir Insulin) 30 units SUBQ QDIPM [facility] Stop: 11/11/16 17:44 Last Admin: 09/18/16 16:53 Dose: 30 unit Levothyroxine Sodium (Synthroid) 0.1 mg PO QDAC [facility] Stop: 11/12/16 07:29 Last Admin: 09/18/16 06:55 Dose: 0.1 mg Lorazepam (Ativan) 1 mg IVP Q4H PRN; Protocol PRN Reason: Anxiety/Agitation Stop: 11/11/16 13:43 Magnesium Hydroxide (Milk Of Magnesia) 30 ml PO BID PRN PRN Reason: Constipation Stop: 11/11/16 18:44 Last Admin: 09/18/16 17:02 Dose: 30 ml Metformin HCl (Glucophage) 850 mg PO BIDWM [facility] Stop: 11/17/16 17:59 Last Admin: 09/18/16 17:34 Dose: 850 mg Mupirocin (Bactroban Oint) 1 appl NS BID [facility] Stop: 09/19/16 09:01 Last Admin: 09/18/16 16:32 Dose: 1 appl Nateglinide (Starlix) 120 mg PO AC [facility] Stop: 11/17/16 11:29 Last Admin: 09/18/16 16:30 Dose: 120 mg Ondansetron HCl (Zofran Odt) 4 mg PO TID PRN PRN Reason: Nausea / Vomiting Stop: 11/11/16 13:30 Pantoprazole Sodium (Protonix) 40 mg PO DAILY [facility] Stop: 11/12/16 08:59 Last Admin: 09/18/16 08:18 Dose: 40 mg Potassium Chloride (Potassium Chloride Elixir) 16 meq PO DAILY [facility] Stop: 11/12/16 08:59 Last Admin: 09/18/16 08:19 Dose: 16 meq Risperidone (Risperdal) 1 mg PO DAILY [facility] PRN Reason: Protocol Stop: 11/12/16 08:59 Last Admin: 09/18/16 08:18 Dose: 1 mg Rivaroxaban (Xarelto) 20 mg PO HS [facility] Stop: 11/11/16 20:59 Last Admin: 09/18/16 20:50 Dose: 20 mg Simvastatin (Zocor) 40 mg PO HS [facility] PRN Reason: Protocol Stop: 11/11/16 20:59 Last Admin: 02/13/17 20:50 Dose: 40 mg Spironolactone (Aldactone) 25 mg PO DAILY [facility] Stop: 11/12/16 08:59 Last Admin: 09/18/16 08:17 Dose: 25 mg Valsartan (Diovan) 160 mg PO DAILY [facility] Stop: 11/12/16 08:59 Last Admin: 09/18/16 08:19 Dose: 160 mg Zolpidem Tartrate (Ambien) 5 mg PO HS PRN PRN Reason: Insomnia Stop: 11/11/16 13:43 General: no acute distress, other (obese) HEENT: atraumatic, normocephalic, PERRLA, EOMI Neck: supple, no thyromegaly Cardiovascular: S1S2, regular Lungs: clear to auscultation bilaterally, clear to percussion Abdomen: soft, no tender, no distended Extremities: other (2nd toe pf left foot, wound.), no cyanosis, no clubbing, no edema Neurological: awake, alert, oriented, CN 2-12 intact Infectious Disease Assmt/Plan - Problem List Patient Problems: All Active Problems CHF (Acute) DEPRESION (Acute) DM (Acute) HTN (Acute) MORBID OBESITY (Acute) SI (Acute) - Assessment Assessment: Impression: 1. Cellulitis of left foot, 2nd toe, with superficial small wound. 2. Psychosis. 3. MRSA colonization. - Plan Plan: Continue wound care and dc clinda po.
--- NOTE | 2016-09-19 01:17 | Progress Notes ---
SUBJECTIVE: The patient was seen in his room having his breakfast. Per patient, he still continues to isolate himself and does not want to be interactive with other patients or with the staff. The patient stated that he still feels depressed at times. OBJECTIVE: HEENT: Head is atraumatic, normocephalic. Eyes, bilateral conjunctivae are clear. External ears are clear. Nostrils are patent. NECK: Supple. No JVD. CARDIOVASCULAR: S1 and S2 heard. PULMONARY: Clear to auscultation. ABDOMEN: Soft, nontender. MUSCULOSKELETAL: Bilateral lower extremities, no weakness and no edema noted. ASSESSMENT: 1. Obesity. 2. Diabetes. 3. Depression. 4. Hypertension. 5. Schizophrenia. 6. Cellulitis of the left second toe. 7. Hypothyroidism. 8. Hyperlipidemia. 9. Anxiety. 10. Insomnia. PLAN: We will continue with a psych consult. We will continue with the ID specialist consult. We will continue the p.o. antibiotics and also, we will be managing his blood sugar that according to the nurses, he is having uncontrolled blood sugar despite with insulin, so we will start him with some p.o. antidiabetic pills. JOB# [id number]
--- NOTE | 2016-09-19 03:18 | Progress Notes ---
Covering for Dr. Red. Case was discussed with staff of the patient, reviewed records. The patient continues to be in same bed. The staff described him as demanding at times. He continues to be depressed, irritable, confused, hopeless and helpless. Continues to be unable to make safe plan for his self-care. He is compliant with the medication with no side effects, no sedation, no nausea, no extrapyramidal symptoms. He is on Celexa 30 mg a day and Risperdal 1 mg daily with no side effects, no sedation, no nausea, no extrapyramidal symptoms. We will continue to work with the patient in group therapy, milieu therapy, adjust the medication as needed. JOB# [id number]
[2016-09-19] MEDS: Levothyroxine 0.1 Mg Tab PO SCH (06:49)
[2016-09-19] MEDS: INSULIN ASPART SLIDING SCALE 100 UNITS/ML UNIT SUBQ SCH ×4 (06:52→20:59)
[2016-09-19] MEDS: Insulin Detemir 100 units/mL 10mL Vial SUBQ SCH ×2 (06:53→17:44)
[2016-09-19] MEDS: Albuterol/Ipratropium Neb 3 ML AERS HHN SCH ×2 (11:45→20:32)
[2016-09-19] MEDS: Betamethasone/Clotrimazole Cream 15 gm Tube TP SCH ×3 (12:22→20:58)
[2016-09-19] MEDS: Potassium Chloride Elixir 20 mEq /15 mL UDC PO SCH (12:24)
[2016-09-19] MEDS: Pantoprazole 40 mg EC Tab PO SCH (12:24)
--- NOTE | 2016-09-19 12:31 | General Progress Note ---
Subjective - Review of Systems Subjective: no change Objective - Results Result Diagrams: 09/15/16 07:50 09/15/16 07:50 Recent Labs: Laboratory Last Values WBC 9.1 Th/cmm (4.8-10.8) 09/15/16 07:50 RBC 5.60 Mil/cmm (3.80-5.80) 09/15/16 07:50 Hgb 16.0 gm/dL (12.6-17.4) 09/15/16 07:50 Hct 47.3 % (39.0-49.0) 09/15/16 07:50 MCV 84.3 fl (80-99) 09/15/16 07:50 MCH 28.6 pg (27.0-31.0) 09/15/16 07:50 MCHC Differential 33.9 pg (28.0-36.0) 09/15/16 07:50 RDW 12.7 % (11.5-20.0) 09/15/16 07:50 Plt Count 213 Th/cmm (150-400) 09/15/16 07:50 MPV 7.7 fl 09/15/16 07:50 Neutrophils % 82.0 % (40.0-80.0) H 09/15/16 07:50 Lymphocytes % 11.5 % (20.0-50.0) L 09/15/16 07:50 Monocytes % 4.4 % (2.0-10.0) 09/15/16 07:50 Eosinophils % 1.9 % (0.0-5.0) 09/15/16 07:50 Basophils % 0.2 % (0.0-2.0) 09/15/16 07:50 Sodium 127 mEq/L (136-145) L 09/15/16 07:50 Potassium 4.3 mEq/L (3.5-5.1) 09/15/16 07:50 Chloride 91 mEq/L (98-107) L 09/15/16 07:50 Carbon Dioxide 33.3 mEq/L (21.0-31.0) H 09/15/16 07:50 Anion Gap 7.0 (7.0-16.0) 09/15/16 07:50 BUN 18 mg/dL (7-25) 09/15/16 07:50 Creatinine 0.8 mg/dL (0.7-1.3) 09/15/16 07:50 Est GFR ( Amer) TNP 09/15/16 07:50 Est GFR (Non-Af Amer) TNP 09/15/16 07:50 BUN/Creatinine Ratio 22.5 09/15/16 07:50 Glucose 243 mg/dL (70-105) H 09/15/16 07:50 POC Glucose 336 MG/DL (70 - 105) H 09/19/16 12:07 Hemoglobin A1c % 12.2 % (4.0-6.0) H 09/12/16 18:30 Calcium 10.0 mg/dL (8.6-10.3) 09/15/16 07:50 - Physical Exam Vitals and I&O: Vital Signs Temp 98.3 F 09/19/16 06:05 Pulse 71 09/19/16 12:25 Resp 18 09/19/16 06:05 BP 112/66 09/19/16 12:25 Pulse Ox 96 09/19/16 06:05 Intake & Output 09/18/16 09/19/16 09/19/16 18:59 06:59 18:59 Intake Total 950 480 Output Total 750 Balance 950 -270 Weight (lbs) 177.128 kg Intake: Oral 950 480 Output: Urine 750 Other: # Voids 3 2 # Bowel Movements 0 0 Active Medications: Current Medications Acetaminophen (Tylenol) 650 mg PO Q6HR PRN PRN Reason: mild pain Stop: 11/11/16 13:30 Acetaminophen/Hydrocodone Bitart ([place] 10 Mg/325 Mg) 1 tab PO Q6H PRN PRN Reason: Pain (Moderate-Severe) Stop: 11/11/16 13:30 Al Hydrox/Mg Hydrox/Simethicone (Maalox) 30 ml PO Q6H PRN PRN Reason: GI DISTRESS Stop: 11/11/16 13:43 Albuterol/Ipratropium (Duoneb Neb) 3 ml HHN Q8HRT [facility] Stop: 11/11/16 14:59 Last Admin: 09/19/16 11:45 Dose: 3 ml Albuterol/Ipratropium (Duoneb Neb) 3 ml HHN Q2H PRN PRN Reason: Wheezing Stop: 11/13/16 16:02 Last Admin: 09/14/16 20:24 Dose: 3 ml Aspirin (Ecotrin) 81 mg PO DAILY [facility] Stop: 11/12/16 08:59 Last Admin: 09/19/16 12:22 Dose: 81 mg Betamethasone/Clotrimazole (Lotrisone Cream) 1 appl TP TID [facility] Stop: 11/13/16 20:59 Last Admin: 09/19/16 12:22 Dose: 1 appl Carisoprodol (Soma) 350 mg PO Q8HR PRN PRN Reason: severe muscle spasms Stop: 11/14/16 11:10 Last Admin: 09/16/16 10:30 Dose: 350 mg Carvedilol (Coreg) 3.125 mg PO BID [facility] Stop: 11/11/16 16:59 Last Admin: 09/19/16 12:22 Dose: Not Given Citalopram Hydrobromide (Celexa) 30 mg PO DAILY [facility] PRN Reason: Protocol Stop: 11/12/16 08:59 Last Admin: 09/19/16 12:23 Dose: 30 mg Docusate Sodium (Colace) 500 mg PO BID [facility] Stop: 11/12/16 09:44 Last Admin: 09/19/16 12:23 Dose: 500 mg Furosemide (Lasix) 40 mg PO BID [facility] Stop: 11/11/16 16:59 Last Admin: 09/19/16 12:24 Dose: Not Given Hydroxyzine Pamoate (Vistaril) 25 mg PO Q4HR PRN; Protocol PRN Reason: Anxiety Stop: 11/13/16 13:36 Insulin Aspart (Novolog Insulin Sliding Scale) 0 units SUBQ ACHS [facility] PRN Reason: Protocol Stop: 11/11/16 16:29 Last Admin: 09/19/16 12:25 Dose: 6 units Insulin Detemir (Levemir Insulin) 40 units SUBQ QDAC [facility] Stop: 11/12/16 07:29 Last Admin: 09/19/16 06:53 Dose: 40 units Insulin Detemir (Levemir Insulin) 30 units SUBQ QDIPM [facility] Stop: 11/11/16 17:44 Last Admin: 09/18/16 16:53 Dose: 30 unit Levothyroxine Sodium (Synthroid) 0.1 mg PO QDAC [facility] Stop: 11/12/16 07:29 Last Admin: 09/19/16 06:49 Dose: 0.1 mg Lorazepam (Ativan) 1 mg IVP Q4H PRN; Protocol PRN Reason: Anxiety/Agitation Stop: 11/11/16 13:43 Magnesium Hydroxide (Milk Of Magnesia) 30 ml PO BID PRN PRN Reason: Constipation Stop: 11/11/16 18:44 Last Admin: 09/18/16 17:02 Dose: 30 ml Metformin HCl (Glucophage) 850 mg PO BIDWM [facility] Stop: 11/17/16 17:59 Last Admin: 09/19/16 12:22 Dose: 850 mg Nateglinide (Starlix) 120 mg PO AC [facility] Stop: 11/17/16 11:29 Last Admin: 09/19/16 06:49 Dose: 120 mg Ondansetron HCl (Zofran Odt) 4 mg PO TID PRN PRN Reason: Nausea / Vomiting Stop: 11/11/16 13:30 Pantoprazole Sodium (Protonix) 40 mg PO DAILY [facility] Stop: 11/12/16 08:59 Last Admin: 09/19/16 12:24 Dose: 40 mg Potassium Chloride (Potassium Chloride Elixir) 16 meq PO DAILY [facility] Stop: 11/12/16 08:59 Last Admin: 09/19/16 12:24 Dose: 16 meq Risperidone 1 mg/ Risperidone (0.25 mg) 1.25 mg PO DAILY [facility] Stop: 11/18/16 11:59 Rivaroxaban (Xarelto) 20 mg PO HS [facility] Stop: 11/11/16 20:59 Last Admin: 09/18/16 20:50 Dose: 20 mg Simvastatin (Zocor) 40 mg PO HS [facility] PRN Reason: Protocol Stop: 11/11/16 20:59 Last Admin: 09/18/16 20:50 Dose: 40 mg Spironolactone (Aldactone) 25 mg PO DAILY [facility] Stop: 11/12/16 08:59 Last Admin: 09/19/16 12:25 Dose: Not Given Valsartan (Diovan) 160 mg PO DAILY [facility] Stop: 11/12/16 08:59 Last Admin: 09/19/16 12:24 Dose: Not Given Zolpidem Tartrate (Ambien) 5 mg PO HS PRN PRN Reason: Insomnia Stop: 11/11/16 13:43 Assessment/Plan - Problem List Patient Problems: All Active Problems CHF (Acute) DEPRESION (Acute) DM (Acute) HTN (Acute) MORBID OBESITY (Acute) SI (Acute) - Assessment Assessment: dm2 psychosis
[2016-09-19] MEDS: Magnesium Hydroxide (MOM) 30 mL UDC PO PRN (17:22)
--- NOTE | 2016-09-20 01:44 | Progress Notes ---
Covering for Dr. Red. Case discussed with staff of the patient, reviewed records. The patient continues to be depressed, isolating himself in bed, having multiple physical complaints, complain of feeling stiff and in pain, he is on Soma as a muscle relaxant and he is on Celexa 30 mg a day with no side effects. He is also on Risperdal 1 mg daily and no side effects, no sedation, no nausea, no extrapyramidal symptoms. Because of severe depression, I will be increasing Risperdal to 1.25 mg daily and we will continue to work with the patient in group therapy, milieu therapy, adjust medications as needed. JOB# [id number]
[2016-09-20] MEDS: Albuterol/Ipratropium Neb 3 ML AERS HHN SCH ×3 (02:55→15:12)
[2016-09-20] MEDS ORDERED: Fleet Enema 135 mL RC PRN (06:48)
[2016-09-20] MEDS: Insulin Detemir 100 units/mL 10mL Vial SUBQ SCH ×2 (07:03→17:07)
[2016-09-20] MEDS: Levothyroxine 0.1 Mg Tab PO SCH (07:03)
[2016-09-20] MEDS: INSULIN ASPART SLIDING SCALE 100 UNITS/ML UNIT SUBQ SCH ×4 (07:04→20:40)
[2016-09-20] MEDS ORDERED: POLYETHYLENE GLYCOL 3350 17 GM PACK PO ONE (07:30)
[2016-09-20] MEDS: Potassium Chloride Elixir 20 mEq /15 mL UDC PO SCH (08:30)
[2016-09-20] MEDS: Pantoprazole 40 mg EC Tab PO SCH (08:32)
[2016-09-20] MEDS: Betamethasone/Clotrimazole Cream 15 gm Tube TP SCH ×3 (08:35→21:01)
--- NOTE | 2016-09-20 09:27 | General Progress Note ---
Subjective - Review of Systems Subjective: no change Objective - Results Result Diagrams: 09/15/16 07:50 09/15/16 07:50 Recent Labs: Laboratory Last Values WBC 9.1 Th/cmm (4.8-10.8) 09/15/16 07:50 RBC 5.60 Mil/cmm (3.80-5.80) 09/15/16 07:50 Hgb 16.0 gm/dL (12.6-17.4) 09/15/16 07:50 Hct 47.3 % (39.0-49.0) 09/15/16 07:50 MCV 84.3 fl (80-99) 09/15/16 07:50 MCH 28.6 pg (27.0-31.0) 09/15/16 07:50 MCHC Differential 33.9 pg (28.0-36.0) 09/15/16 07:50 RDW 12.7 % (11.5-20.0) 09/15/16 07:50 Plt Count 213 Th/cmm (150-400) 09/15/16 07:50 MPV 7.7 fl 09/15/16 07:50 Neutrophils % 82.0 % (40.0-80.0) H 09/15/16 07:50 Lymphocytes % 11.5 % (20.0-50.0) L 09/15/16 07:50 Monocytes % 4.4 % (2.0-10.0) 09/15/16 07:50 Eosinophils % 1.9 % (0.0-5.0) 09/15/16 07:50 Basophils % 0.2 % (0.0-2.0) 09/15/16 07:50 Sodium 127 mEq/L (136-145) L 09/15/16 07:50 Potassium 4.3 mEq/L (3.5-5.1) 09/15/16 07:50 Chloride 91 mEq/L (98-107) L 09/15/16 07:50 Carbon Dioxide 33.3 mEq/L (21.0-31.0) H 09/15/16 07:50 Anion Gap 7.0 (7.0-16.0) 09/15/16 07:50 BUN 18 mg/dL (7-25) 09/15/16 07:50 Creatinine 0.8 mg/dL (0.7-1.3) 09/15/16 07:50 Est GFR ( Amer) TNP 09/15/16 07:50 Est GFR (Non-Af Amer) TNP 09/15/16 07:50 BUN/Creatinine Ratio 22.5 09/15/16 07:50 Glucose 243 mg/dL (70-105) H 09/15/16 07:50 POC Glucose 204 MG/DL (70 - 105) H 09/20/16 06:22 Hemoglobin A1c % 12.2 % (4.0-6.0) H 09/12/16 18:30 Calcium 10.0 mg/dL (8.6-10.3) 09/15/16 07:50 - Physical Exam Vitals and I&O: Vital Signs Temp 97.4 F 09/20/16 06:10 Pulse 84 09/20/16 08:33 Resp 18 09/20/16 07:08 BP 140/64 09/20/16 08:33 Pulse Ox 96 09/20/16 07:07 Intake & Output 09/19/16 09/20/16 09/20/16 18:59 06:59 18:59 Intake Total 1700 120 Balance 1700 120 Intake: Oral 1700 120 Other: # Voids 3 3 # Bowel Movements 0 Active Medications: Current Medications Acetaminophen (Tylenol) 650 mg PO Q6HR PRN PRN Reason: mild pain Stop: 11/11/16 13:30 Acetaminophen/Hydrocodone Bitart ([place] 10 Mg/325 Mg) 1 tab PO Q6H PRN PRN Reason: Pain (Moderate-Severe) Stop: 11/11/16 13:30 Al Hydrox/Mg Hydrox/Simethicone (Maalox) 30 ml PO Q6H PRN PRN Reason: GI DISTRESS Stop: 11/11/16 13:43 Albuterol/Ipratropium (Duoneb Neb) 3 ml HHN Q8HRT [facility] Stop: 11/11/16 14:59 Last Admin: 09/20/16 07:05 Dose: 3 ml Albuterol/Ipratropium (Duoneb Neb) 3 ml HHN Q2H PRN PRN Reason: Wheezing Stop: 11/13/16 16:02 Last Admin: 09/14/16 20:24 Dose: 3 ml Aspirin (Ecotrin) 81 mg PO DAILY [facility] Stop: 11/12/16 08:59 Last Admin: 09/20/16 08:32 Dose: 81 mg Betamethasone/Clotrimazole (Lotrisone Cream) 1 appl TP TID [facility] Stop: 11/13/16 20:59 Last Admin: 09/20/16 08:35 Dose: 1 appl Carisoprodol (Soma) 350 mg PO Q8HR PRN PRN Reason: severe muscle spasms Stop: 11/14/16 11:10 Last Admin: 09/16/16 10:30 Dose: 350 mg Carvedilol (Coreg) 3.125 mg PO BID [facility] Stop: 11/11/16 16:59 Last Admin: 09/20/16 08:33 Dose: 3.125 mg Citalopram Hydrobromide (Celexa) 30 mg PO DAILY [facility] PRN Reason: Protocol Stop: 11/12/16 08:59 Last Admin: 09/20/16 08:32 Dose: 30 mg Docusate Sodium (Colace) 500 mg PO BID [facility] Stop: 11/12/16 09:44 Last Admin: 09/20/16 08:31 Dose: 500 mg Furosemide (Lasix) 40 mg PO BID [facility] Stop: 11/11/16 16:59 Last Admin: 09/20/16 08:32 Dose: 40 mg Hydroxyzine Pamoate (Vistaril) 25 mg PO Q4HR PRN; Protocol PRN Reason: Anxiety Stop: 11/13/16 13:36 Insulin Aspart (Novolog Insulin Sliding Scale) 0 units SUBQ ACHS [facility] PRN Reason: Protocol Stop: 11/11/16 16:29 Last Admin: 09/20/16 07:04 Dose: 2 units Insulin Detemir (Levemir Insulin) 40 units SUBQ QDAC [facility] Stop: 11/12/16 07:29 Last Admin: 09/20/16 07:03 Dose: 40 units Insulin Detemir (Levemir Insulin) 30 units SUBQ QDIPM [facility] Stop: 11/11/16 17:44 Last Admin: 09/19/16 17:44 Dose: 30 unit Levothyroxine Sodium (Synthroid) 0.1 mg PO QDAC [facility] Stop: 11/12/16 07:29 Last Admin: 09/20/16 07:03 Dose: 0.1 mg Lorazepam (Ativan) 1 mg IVP Q4H PRN; Protocol PRN Reason: Anxiety/Agitation Stop: 11/11/16 13:43 Magnesium Hydroxide (Milk Of Magnesia) 30 ml PO BID PRN PRN Reason: Constipation Stop: 11/11/16 18:44 Last Admin: 09/19/16 17:22 Dose: 30 ml Metformin HCl (Glucophage) 850 mg PO BIDWM [facility] Stop: 11/17/16 17:59 Last Admin: 09/20/16 08:35 Dose: 850 mg Nateglinide (Starlix) 120 mg PO AC [facility] Stop: 11/17/16 11:29 Last Admin: 09/20/16 07:02 Dose: 120 mg Ondansetron HCl (Zofran Odt) 4 mg PO TID PRN PRN Reason: Nausea / Vomiting Stop: 11/11/16 13:30 Pantoprazole Sodium (Protonix) 40 mg PO DAILY [facility] Stop: 11/12/16 08:59 Last Admin: 09/20/16 08:32 Dose: 40 mg Potassium Chloride (Potassium Chloride Elixir) 16 meq PO DAILY [facility] Stop: 11/12/16 08:59 Last Admin: 09/20/16 08:30 Dose: 16 meq Risperidone 1 mg/ Risperidone (0.25 mg) 1.25 mg PO DAILY [facility] Stop: 11/18/16 11:59 Last Admin: 09/20/16 08:31 Dose: 1.25 mg Simvastatin (Zocor) 40 mg PO HS [facility] PRN Reason: Protocol Stop: 11/11/16 20:59 Last Admin: 09/19/16 20:59 Dose: 40 mg Sodium Phosphate (Fleet Enema) 135 ml RC PRN PRN PRN Reason: Constipation IF LACTULOSE INEF Stop: 09/21/16 06:47 Spironolactone (Aldactone) 25 mg PO DAILY [facility] Stop: 11/12/16 08:59 Last Admin: 09/20/16 08:31 Dose: 25 mg Valsartan (Diovan) 160 mg PO DAILY [facility] Stop: 11/12/16 08:59 Last Admin: 09/20/16 08:33 Dose: 160 mg Zolpidem Tartrate (Ambien) 5 mg PO HS PRN PRN Reason: Insomnia Stop: 11/11/16 13:43 Assessment/Plan - Problem List Patient Problems: All Active Problems CHF (Acute) DEPRESION (Acute) DM (Acute) HTN (Acute) MORBID OBESITY (Acute) SI (Acute) - Assessment Assessment: dm2 psychosis
--- NOTE | 2016-09-21 02:45 | Progress Notes ---
SUBJECTIVE: The patient seen, chart reviewed, discussed with staff. Admitted on a 5150 hold, threatening staff and peers in the nursing facility, threatening to kill others, angry, irritable, hopeless and despairing. When I asked him why he is here, he states "I am very lost. States he is severely depressed, very weak, states he has no plans for discharge." Tells me to go on the internet and look up "something about a man that cannot talk" and then he states "that is me, nonsensical sort of bizarre in his presentation, no plans for self-care, severely depression, withdrawn, impulsive and unpredictable. ASSESSMENT: The patient remains angry, unpredictable, still threatening, very angry and depressed and unable to care for his basic needs. Dr. Rajput has been seeing the patient over the past few days, continues to be isolative. PLAN: We will continue to monitor, continue to titrate medications. Dr. Rajput has been adjusting medications. No side effects. JOB# [id number]
[2016-09-21] MEDS: INSULIN ASPART SLIDING SCALE 100 UNITS/ML UNIT SUBQ SCH ×4 (06:46→20:42)
[2016-09-21] MEDS: Insulin Detemir 100 units/mL 10mL Vial SUBQ SCH ×2 (06:47→17:48)
[2016-09-21] MEDS: Levothyroxine 0.1 Mg Tab PO SCH (06:48)
[2016-09-21] MEDS: Albuterol/Ipratropium Neb 3 ML AERS HHN SCH ×3 (07:15→23:36)
--- NOTE | 2016-09-21 08:14 | General Progress Note ---
Subjective - Review of Systems Subjective: no change Objective - Results Result Diagrams: 09/15/16 07:50 09/15/16 07:50 Recent Labs: Laboratory Last Values WBC 9.1 Th/cmm (4.8-10.8) 09/15/16 07:50 RBC 5.60 Mil/cmm (3.80-5.80) 09/15/16 07:50 Hgb 16.0 gm/dL (12.6-17.4) 09/15/16 07:50 Hct 47.3 % (39.0-49.0) 09/15/16 07:50 MCV 84.3 fl (80-99) 09/15/16 07:50 MCH 28.6 pg (27.0-31.0) 09/15/16 07:50 MCHC Differential 33.9 pg (28.0-36.0) 09/15/16 07:50 RDW 12.7 % (11.5-20.0) 09/15/16 07:50 Plt Count 213 Th/cmm (150-400) 09/15/16 07:50 MPV 7.7 fl 09/15/16 07:50 Neutrophils % 82.0 % (40.0-80.0) H 09/15/16 07:50 Lymphocytes % 11.5 % (20.0-50.0) L 09/15/16 07:50 Monocytes % 4.4 % (2.0-10.0) 09/15/16 07:50 Eosinophils % 1.9 % (0.0-5.0) 09/15/16 07:50 Basophils % 0.2 % (0.0-2.0) 09/15/16 07:50 Sodium 127 mEq/L (136-145) L 09/15/16 07:50 Potassium 4.3 mEq/L (3.5-5.1) 09/15/16 07:50 Chloride 91 mEq/L (98-107) L 09/15/16 07:50 Carbon Dioxide 33.3 mEq/L (21.0-31.0) H 09/15/16 07:50 Anion Gap 7.0 (7.0-16.0) 09/15/16 07:50 BUN 18 mg/dL (7-25) 09/15/16 07:50 Creatinine 0.8 mg/dL (0.7-1.3) 09/15/16 07:50 Est GFR ( Amer) TNP 09/15/16 07:50 Est GFR (Non-Af Amer) TNP 09/15/16 07:50 BUN/Creatinine Ratio 22.5 09/15/16 07:50 Glucose 243 mg/dL (70-105) H 09/15/16 07:50 POC Glucose 203 MG/DL (70 - 105) H 09/21/16 06:21 Hemoglobin A1c % 12.2 % (4.0-6.0) H 09/12/16 18:30 Calcium 10.0 mg/dL (8.6-10.3) 09/15/16 07:50 - Physical Exam Vitals and I&O: Vital Signs Temp 97 F 09/21/16 06:33 Pulse 73 09/21/16 07:15 Resp 18 09/21/16 07:15 BP 122/76 09/21/16 06:33 Pulse Ox 96 09/21/16 07:15 Intake & Output 09/20/16 09/21/16 09/21/16 18:59 06:59 18:59 Intake Total 1000 120 Balance 1000 120 Intake: Oral 1000 120 Other: # Voids 4 4 # Bowel Movements 0 3 Active Medications: Current Medications Acetaminophen (Tylenol) 650 mg PO Q6HR PRN PRN Reason: mild pain Stop: 11/11/16 13:30 Acetaminophen/Hydrocodone Bitart ([place] 10 Mg/325 Mg) 1 tab PO Q6H PRN PRN Reason: Pain (Moderate-Severe) Stop: 11/11/16 13:30 Al Hydrox/Mg Hydrox/Simethicone (Maalox) 30 ml PO Q6H PRN PRN Reason: GI DISTRESS Stop: 11/11/16 13:43 Albuterol/Ipratropium (Duoneb Neb) 3 ml HHN Q8HRT [facility] Stop: 11/11/16 14:59 Last Admin: 09/21/16 07:15 Dose: 3 ml Albuterol/Ipratropium (Duoneb Neb) 3 ml HHN Q2H PRN PRN Reason: Wheezing Stop: 11/13/16 16:02 Last Admin: 09/14/16 20:24 Dose: 3 ml Aspirin (Ecotrin) 81 mg PO DAILY [facility] Stop: 11/12/16 08:59 Last Admin: 09/20/16 08:32 Dose: 81 mg Betamethasone/Clotrimazole (Lotrisone Cream) 1 appl TP TID [facility] Stop: 11/13/16 20:59 Last Admin: 09/20/16 21:01 Dose: Not Given Carisoprodol (Soma) 350 mg PO Q8HR PRN PRN Reason: severe muscle spasms Stop: 11/14/16 11:10 Last Admin: 09/16/16 10:30 Dose: 350 mg Carvedilol (Coreg) 3.125 mg PO BID [facility] Stop: 11/11/16 16:59 Last Admin: 09/20/16 17:09 Dose: 3.125 mg Citalopram Hydrobromide (Celexa) 30 mg PO DAILY [facility] PRN Reason: Protocol Stop: 11/12/16 08:59 Last Admin: 09/20/16 08:32 Dose: 30 mg Docusate Sodium (Colace) 500 mg PO BID [facility] Stop: 11/12/16 09:44 Last Admin: 09/20/16 17:09 Dose: 500 mg Furosemide (Lasix) 40 mg PO BID [facility] Stop: 11/11/16 16:59 Last Admin: 09/20/16 17:09 Dose: 40 mg Hydroxyzine Pamoate (Vistaril) 25 mg PO Q4HR PRN; Protocol PRN Reason: Anxiety Stop: 11/13/16 13:36 Insulin Aspart (Novolog Insulin Sliding Scale) 0 units SUBQ ACHS [facility] PRN Reason: Protocol Stop: 11/11/16 16:29 Last Admin: 09/21/16 06:46 Dose: 2 units Insulin Detemir (Levemir Insulin) 40 units SUBQ QDAC [facility] Stop: 11/12/16 07:29 Last Admin: 09/21/16 06:47 Dose: 40 units Insulin Detemir (Levemir Insulin) 30 units SUBQ QDIPM [facility] Stop: 11/11/16 17:44 Last Admin: 09/20/16 17:07 Dose: 30 unit Levothyroxine Sodium (Synthroid) 0.1 mg PO QDAC [facility] Stop: 11/12/16 07:29 Last Admin: 09/21/16 06:48 Dose: 0.1 mg Lorazepam (Ativan) 1 mg IVP Q4H PRN; Protocol PRN Reason: Anxiety/Agitation Stop: 11/11/16 13:43 Magnesium Hydroxide (Milk Of Magnesia) 30 ml PO BID PRN PRN Reason: Constipation Stop: 11/11/16 18:44 Last Admin: 09/19/16 17:22 Dose: 30 ml Metformin HCl (Glucophage) 850 mg PO BIDWM [facility] Stop: 11/17/16 17:59 Last Admin: 09/20/16 17:13 Dose: 850 mg Nateglinide (Starlix) 120 mg PO AC [facility] Stop: 11/17/16 11:29 Last Admin: 09/21/16 06:48 Dose: 120 mg Ondansetron HCl (Zofran Odt) 4 mg PO TID PRN PRN Reason: Nausea / Vomiting Stop: 11/11/16 13:30 Pantoprazole Sodium (Protonix) 40 mg PO DAILY [facility] Stop: 11/12/16 08:59 Last Admin: 09/20/16 08:32 Dose: 40 mg Potassium Chloride (Potassium Chloride Elixir) 16 meq PO DAILY [facility] Stop: 11/12/16 08:59 Last Admin: 09/20/16 08:30 Dose: 16 meq Risperidone 1 mg/ Risperidone (0.25 mg) 1.25 mg PO DAILY [facility] Stop: 11/18/16 11:59 Last Admin: 09/20/16 08:31 Dose: 1.25 mg Simvastatin (Zocor) 40 mg PO HS [facility] PRN Reason: Protocol Stop: 11/11/16 20:59 Last Admin: 09/20/16 20:24 Dose: 40 mg Spironolactone (Aldactone) 25 mg PO DAILY [facility] Stop: 11/12/16 08:59 Last Admin: 09/20/16 08:31 Dose: 25 mg Valsartan (Diovan) 160 mg PO DAILY [facility] Stop: 11/12/16 08:59 Last Admin: 09/20/16 08:33 Dose: 160 mg Zolpidem Tartrate (Ambien) 5 mg PO HS PRN PRN Reason: Insomnia Stop: 11/11/16 13:43 Assessment/Plan - Problem List Patient Problems: All Active Problems CHF (Acute) DEPRESION (Acute) DM (Acute) HTN (Acute) MORBID OBESITY (Acute) SI (Acute) - Assessment Assessment: dm2 psychosis
[2016-09-21] MEDS: Pantoprazole 40 mg EC Tab PO SCH (09:11)
[2016-09-21] MEDS: Potassium Chloride Elixir 20 mEq /15 mL UDC PO SCH (09:11)
[2016-09-21] MEDS: Betamethasone/Clotrimazole Cream 15 gm Tube TP SCH ×3 (09:14→21:08)
--- NOTE | 2016-09-22 03:50 | Progress Notes ---
SUBJECTIVE: Chart reviewed and the patient interviewed. Also discussed the patient's condition with the staff and reviewed records and labs. The patient is still withdrawn and interacting minimally with peers and with others. The patient also is still easily irritable and easily agitated. Also, still wants to be left alone. Otherwise, the patient is compliant with taking his medications with no side effects of medications. ASSESSMENT: The patient is still depressed and still psychotic. TREATMENT PLAN: We will continue monitoring his behavior and his condition closely. Also, we will increase Risperdal to 2 mg every day. Also, continue supportive therapy and continue to work on discharge plans and on placement issue. JOB# [id number]
[2016-09-22] MEDS: Levothyroxine 0.1 Mg Tab PO SCH (06:36)
[2016-09-22] MEDS: INSULIN ASPART SLIDING SCALE 100 UNITS/ML UNIT SUBQ SCH ×4 (06:56→20:37)
[2016-09-22] MEDS: Insulin Detemir 100 units/mL 10mL Vial SUBQ SCH ×2 (06:57→17:50)
--- NOTE | 2016-09-22 08:10 | General Progress Note ---
Subjective - Review of Systems Subjective: no change Objective - Results Result Diagrams: 09/15/16 07:50 09/15/16 07:50 Recent Labs: Laboratory Last Values WBC 9.1 Th/cmm (4.8-10.8) 09/15/16 07:50 RBC 5.60 Mil/cmm (3.80-5.80) 09/15/16 07:50 Hgb 16.0 gm/dL (12.6-17.4) 09/15/16 07:50 Hct 47.3 % (39.0-49.0) 09/15/16 07:50 MCV 84.3 fl (80-99) 09/15/16 07:50 MCH 28.6 pg (27.0-31.0) 09/15/16 07:50 MCHC Differential 33.9 pg (28.0-36.0) 09/15/16 07:50 RDW 12.7 % (11.5-20.0) 09/15/16 07:50 Plt Count 213 Th/cmm (150-400) 09/15/16 07:50 MPV 7.7 fl 09/15/16 07:50 Neutrophils % 82.0 % (40.0-80.0) H 09/15/16 07:50 Lymphocytes % 11.5 % (20.0-50.0) L 09/15/16 07:50 Monocytes % 4.4 % (2.0-10.0) 09/15/16 07:50 Eosinophils % 1.9 % (0.0-5.0) 09/15/16 07:50 Basophils % 0.2 % (0.0-2.0) 09/15/16 07:50 Sodium 127 mEq/L (136-145) L 09/15/16 07:50 Potassium 4.3 mEq/L (3.5-5.1) 09/15/16 07:50 Chloride 91 mEq/L (98-107) L 09/15/16 07:50 Carbon Dioxide 33.3 mEq/L (21.0-31.0) H 09/15/16 07:50 Anion Gap 7.0 (7.0-16.0) 09/15/16 07:50 BUN 18 mg/dL (7-25) 09/15/16 07:50 Creatinine 0.8 mg/dL (0.7-1.3) 09/15/16 07:50 Est GFR ( Amer) TNP 09/15/16 07:50 Est GFR (Non-Af Amer) TNP 09/15/16 07:50 BUN/Creatinine Ratio 22.5 09/15/16 07:50 Glucose 243 mg/dL (70-105) H 09/15/16 07:50 POC Glucose 209 MG/DL (70 - 105) H 09/22/16 06:43 Hemoglobin A1c % 12.2 % (4.0-6.0) H 09/12/16 18:30 Calcium 10.0 mg/dL (8.6-10.3) 09/15/16 07:50 - Physical Exam Vitals and I&O: Vital Signs Temp 97.8 F 09/22/16 07:00 Pulse 84 09/22/16 07:00 Resp 18 09/22/16 07:00 BP 140/61 09/22/16 07:00 Pulse Ox 97 09/22/16 07:00 Intake & Output 09/21/16 09/22/16 09/22/16 18:59 06:59 18:59 Intake Total 2300 Balance 2300 Intake: Oral 2300 Other: # Voids 11 2 3 # Bowel Movements 13 Stool Characteristics Hard Active Medications: Current Medications Acetaminophen (Tylenol) 650 mg PO Q6HR PRN PRN Reason: mild pain Stop: 11/11/16 13:30 Acetaminophen/Hydrocodone Bitart ([place] 10 Mg/325 Mg) 1 tab PO Q6H PRN PRN Reason: Pain (Moderate-Severe) Stop: 11/11/16 13:30 Al Hydrox/Mg Hydrox/Simethicone (Maalox) 30 ml PO Q6H PRN PRN Reason: GI DISTRESS Stop: 11/11/16 13:43 Albuterol/Ipratropium (Duoneb Neb) 3 ml HHN Q8HRT [facility] Stop: 11/11/16 14:59 Last Admin: 09/21/16 23:36 Dose: 3 ml Albuterol/Ipratropium (Duoneb Neb) 3 ml HHN Q2H PRN PRN Reason: Wheezing Stop: 11/13/16 16:02 Last Admin: 09/14/16 20:24 Dose: 3 ml Aspirin (Ecotrin) 81 mg PO DAILY [facility] Stop: 11/12/16 08:59 Last Admin: 09/21/16 09:14 Dose: 81 mg Betamethasone/Clotrimazole (Lotrisone Cream) 1 appl TP TID [facility] Stop: 11/13/16 20:59 Last Admin: 09/21/16 21:08 Dose: 1 appl Carisoprodol (Soma) 350 mg PO Q8HR PRN PRN Reason: severe muscle spasms Stop: 11/14/16 11:10 Last Admin: 09/16/16 10:30 Dose: 350 mg Carvedilol (Coreg) 3.125 mg PO BID [facility] Stop: 11/11/16 16:59 Last Admin: 09/21/16 17:42 Dose: 3.125 mg Citalopram Hydrobromide (Celexa) 30 mg PO DAILY [facility] PRN Reason: Protocol Stop: 11/12/16 08:59 Last Admin: 09/21/16 09:11 Dose: 30 mg Docusate Sodium (Colace) 500 mg PO BID [facility] Stop: 11/12/16 09:44 Last Admin: 09/21/16 17:43 Dose: Not Given Furosemide (Lasix) 40 mg PO BID [facility] Stop: 11/11/16 16:59 Last Admin: 09/21/16 17:42 Dose: 40 mg Hydroxyzine Pamoate (Vistaril) 25 mg PO Q4HR PRN; Protocol PRN Reason: Anxiety Stop: 11/13/16 13:36 Insulin Aspart (Novolog Insulin Sliding Scale) 0 units SUBQ ACHS [facility] PRN Reason: Protocol Stop: 11/11/16 16:29 Last Admin: 09/22/16 06:56 Dose: 2 units Insulin Detemir (Levemir Insulin) 40 units SUBQ QDAC [facility] Stop: 11/12/16 07:29 Last Admin: 09/22/16 06:57 Dose: 40 units Insulin Detemir (Levemir Insulin) 30 units SUBQ QDIPM [facility] Stop: 11/11/16 17:44 Last Admin: 09/21/16 17:48 Dose: 30 unit Levothyroxine Sodium (Synthroid) 0.1 mg PO QDAC [facility] Stop: 11/12/16 07:29 Last Admin: 09/22/16 06:36 Dose: 0.1 mg Lorazepam (Ativan) 1 mg IVP Q4H PRN; Protocol PRN Reason: Anxiety/Agitation Stop: 11/11/16 13:43 Magnesium Hydroxide (Milk Of Magnesia) 30 ml PO BID PRN PRN Reason: Constipation Stop: 11/11/16 18:44 Last Admin: 09/19/16 17:22 Dose: 30 ml Metformin HCl (Glucophage) 850 mg PO BIDWM [facility] Stop: 11/17/16 17:59 Last Admin: 09/21/16 17:42 Dose: 850 mg Nateglinide (Starlix) 120 mg PO AC [facility] Stop: 11/17/16 11:29 Last Admin: 09/22/16 06:37 Dose: 120 mg Ondansetron HCl (Zofran Odt) 4 mg PO TID PRN PRN Reason: Nausea / Vomiting Stop: 11/11/16 13:30 Pantoprazole Sodium (Protonix) 40 mg PO DAILY [facility] Stop: 11/12/16 08:59 Last Admin: 09/21/16 09:11 Dose: 40 mg Potassium Chloride (Potassium Chloride Elixir) 16 meq PO DAILY [facility] Stop: 11/12/16 08:59 Last Admin: 09/21/16 09:11 Dose: 16 meq Risperidone (Risperdal) 2 mg PO DAILY [facility] Stop: 11/18/16 11:59 Simvastatin (Zocor) 40 mg PO HS [facility] PRN Reason: Protocol Stop: 11/11/16 20:59 Last Admin: 09/21/16 20:43 Dose: 40 mg Spironolactone (Aldactone) 25 mg PO DAILY [facility] Stop: 11/12/16 08:59 Last Admin: 09/21/16 09:12 Dose: 25 mg Valsartan (Diovan) 160 mg PO DAILY [facility] Stop: 11/12/16 08:59 Last Admin: 09/21/16 09:13 Dose: 160 mg Zolpidem Tartrate (Ambien) 5 mg PO HS PRN PRN Reason: Insomnia Stop: 11/11/16 13:43 Assessment/Plan - Problem List Patient Problems: All Active Problems CHF (Acute) DEPRESION (Acute) DM (Acute) HTN (Acute) MORBID OBESITY (Acute) SI (Acute) - Assessment Assessment: dm2 psychosis
[2016-09-22] MEDS: Pantoprazole 40 mg EC Tab PO SCH (08:29)
[2016-09-22] MEDS: Betamethasone/Clotrimazole Cream 15 gm Tube TP SCH (08:31)
[2016-09-22] MEDS: Potassium Chloride Elixir 20 mEq /15 mL UDC PO SCH (08:31)
[2016-09-22] MEDS: Albuterol/Ipratropium Neb 3 ML AERS HHN SCH ×3 (08:35→23:26)
--- NOTE | 2016-09-22 09:40 | Progress Notes ---
SUBJECTIVE: The patient was seen in his room waiting for dinner. Per staff nurses, the patient still continues to isolate himself and does not want to be engaged or interactive with other patients. The patient is still having poor impulse control. OBJECTIVE: HEAD: Atraumatic, normocephalic. EYES: Bilateral pupils are equally round and reactive. NECK: Supple. No JVD. CARDIOVASCULAR: No murmur. S1 and S2 heard. PULMONARY: Clear to auscultation. ABDOMEN: Soft and nontender. Positive bowel sounds. MUSCULOSKELETAL: Bilateral lower extremities, no edema and no weakness noted. ASSESSMENT: 1. Schizophrenia. 2. Depression. 3. Anxiety. 4. Insomnia. 5. Hypertension. 7. Obesity. 8. Diabetes. 9. Hypothyroidism. 10. Hyperlipidemia. PLAN: We will continue to keep this patient in the Psych Unit. We will have the psych doctor follow up with the patient to control the patient's behavior. JOB# [id number]
--- NOTE | 2016-09-22 13:02 | Infectious Disease Prog Note ---
Infectious Disease Subjective - Review of Systems Service Date: 09/22/16 Subjective: no new change. Infectious Disease Objective - Results Result Diagrams: 09/15/16 07:50 09/15/16 07:50 Recent Labs: Laboratory Last Values WBC 9.1 Th/cmm (4.8-10.8) 09/15/16 07:50 RBC 5.60 Mil/cmm (3.80-5.80) 09/15/16 07:50 Hgb 16.0 gm/dL (12.6-17.4) 09/15/16 07:50 Hct 47.3 % (39.0-49.0) 09/15/16 07:50 MCV 84.3 fl (80-99) 09/15/16 07:50 MCH 28.6 pg (27.0-31.0) 09/15/16 07:50 MCHC Differential 33.9 pg (28.0-36.0) 09/15/16 07:50 RDW 12.7 % (11.5-20.0) 09/15/16 07:50 Plt Count 213 Th/cmm (150-400) 09/15/16 07:50 MPV 7.7 fl 09/15/16 07:50 Neutrophils % 82.0 % (40.0-80.0) H 09/15/16 07:50 Lymphocytes % 11.5 % (20.0-50.0) L 09/15/16 07:50 Monocytes % 4.4 % (2.0-10.0) 09/15/16 07:50 Eosinophils % 1.9 % (0.0-5.0) 09/15/16 07:50 Basophils % 0.2 % (0.0-2.0) 09/15/16 07:50 Sodium 127 mEq/L (136-145) L 09/15/16 07:50 Potassium 4.3 mEq/L (3.5-5.1) 09/15/16 07:50 Chloride 91 mEq/L (98-107) L 09/15/16 07:50 Carbon Dioxide 33.3 mEq/L (21.0-31.0) H 09/15/16 07:50 Anion Gap 7.0 (7.0-16.0) 09/15/16 07:50 BUN 18 mg/dL (7-25) 09/15/16 07:50 Creatinine 0.8 mg/dL (0.7-1.3) 09/15/16 07:50 Est GFR ( Amer) TNP 09/15/16 07:50 Est GFR (Non-Af Amer) TNP 09/15/16 07:50 BUN/Creatinine Ratio 22.5 09/15/16 07:50 Glucose 243 mg/dL (70-105) H 09/15/16 07:50 POC Glucose 269 MG/DL (70 - 105) H 09/22/16 11:15 Hemoglobin A1c % 12.2 % (4.0-6.0) H 09/12/16 18:30 Calcium 10.0 mg/dL (8.6-10.3) 09/15/16 07:50 - Physical Exam Vitals and I&O: Vital Signs Temp 97.8 F 09/22/16 07:00 Pulse 70 09/22/16 09:00 Resp 18 09/22/16 09:00 BP 140/64 09/22/16 08:30 Pulse Ox 94 09/22/16 09:00 Intake & Output 09/21/16 09/22/16 09/22/16 18:59 06:59 18:59 Intake Total 2300 Balance 2300 Intake: Oral 2300 Other: # Voids 11 2 3 # Bowel Movements 13 Stool Characteristics Hard Active Medications: Current Medications Acetaminophen (Tylenol) 650 mg PO Q6HR PRN PRN Reason: mild pain Stop: 11/11/16 13:30 Acetaminophen/Hydrocodone Bitart ([place] 10 Mg/325 Mg) 1 tab PO Q6H PRN PRN Reason: Pain (Moderate-Severe) Stop: 11/11/16 13:30 Al Hydrox/Mg Hydrox/Simethicone (Maalox) 30 ml PO Q6H PRN PRN Reason: GI DISTRESS Stop: 11/11/16 13:43 Albuterol/Ipratropium (Duoneb Neb) 3 ml HHN Q8HRT [facility] Stop: 11/11/16 14:59 Last Admin: 09/22/16 08:35 Dose: 3 ml Albuterol/Ipratropium (Duoneb Neb) 3 ml HHN Q2H PRN PRN Reason: Wheezing Stop: 11/13/16 16:02 Last Admin: 09/14/16 20:24 Dose: 3 ml Aspirin (Ecotrin) 81 mg PO DAILY [facility] Stop: 11/12/16 08:59 Last Admin: 09/22/16 08:31 Dose: 81 mg Carisoprodol (Soma) 350 mg PO Q8HR PRN PRN Reason: severe muscle spasms Stop: 11/14/16 11:10 Last Admin: 09/16/16 10:30 Dose: 350 mg Carvedilol (Coreg) 3.125 mg PO BID [facility] Stop: 11/11/16 16:59 Last Admin: 09/22/16 08:29 Dose: 3.125 mg Citalopram Hydrobromide (Celexa) 30 mg PO DAILY [facility] PRN Reason: Protocol Stop: 11/12/16 08:59 Last Admin: 09/22/16 08:30 Dose: 30 mg Docusate Sodium (Colace) 500 mg PO BID [facility] Stop: 11/12/16 09:44 Last Admin: 09/22/16 08:37 Dose: Not Given Furosemide (Lasix) 40 mg PO BID [facility] Stop: 11/11/16 16:59 Last Admin: 09/22/16 08:30 Dose: 40 mg Hydroxyzine Pamoate (Vistaril) 25 mg PO Q4HR PRN; Protocol PRN Reason: Anxiety Stop: 11/13/16 13:36 Insulin Aspart (Novolog Insulin Sliding Scale) 0 units SUBQ ACHS [facility] PRN Reason: Protocol Stop: 11/11/16 16:29 Last Admin: 09/22/16 11:29 Dose: 4 units Insulin Detemir (Levemir Insulin) 40 units SUBQ QDAC [facility] Stop: 11/12/16 07:29 Last Admin: 09/22/16 06:57 Dose: 40 units Insulin Detemir (Levemir Insulin) 30 units SUBQ QDIPM [facility] Stop: 11/11/16 17:44 Last Admin: 09/21/16 17:48 Dose: 30 unit Levothyroxine Sodium (Synthroid) 0.1 mg PO QDAC [facility] Stop: 11/12/16 07:29 Last Admin: 09/22/16 06:36 Dose: 0.1 mg Lorazepam (Ativan) 1 mg IVP Q4H PRN; Protocol PRN Reason: Anxiety/Agitation Stop: 11/11/16 13:43 Magnesium Hydroxide (Milk Of Magnesia) 30 ml PO BID PRN PRN Reason: Constipation Stop: 11/11/16 18:44 Last Admin: 09/19/16 17:22 Dose: 30 ml Metformin HCl (Glucophage) 850 mg PO BIDWM [facility] Stop: 11/17/16 17:59 Last Admin: 09/22/16 08:29 Dose: 850 mg Nateglinide (Starlix) 120 mg PO AC [facility] Stop: 11/17/16 11:29 Last Admin: 09/22/16 12:14 Dose: 120 mg Ondansetron HCl (Zofran Odt) 4 mg PO TID PRN PRN Reason: Nausea / Vomiting Stop: 11/11/16 13:30 Pantoprazole Sodium (Protonix) 40 mg PO DAILY [facility] Stop: 11/12/16 08:59 Last Admin: 09/22/16 08:29 Dose: 40 mg Potassium Chloride (Potassium Chloride Elixir) 16 meq PO DAILY [facility] Stop: 11/12/16 08:59 Last Admin: 09/22/16 08:31 Dose: 16 meq Risperidone (Risperdal) 2 mg PO DAILY [facility] Stop: 11/18/16 11:59 Last Admin: 09/22/16 08:31 Dose: 2 mg Simvastatin (Zocor) 40 mg PO HS [facility] PRN Reason: Protocol Stop: 11/11/16 20:59 Last Admin: 09/21/16 20:43 Dose: 40 mg Spironolactone (Aldactone) 25 mg PO DAILY [facility] Stop: 11/12/16 08:59 Last Admin: 09/22/16 08:29 Dose: 25 mg Valsartan (Diovan) 160 mg PO DAILY [facility] Stop: 11/12/16 08:59 Last Admin: 09/22/16 08:27 Dose: 160 mg Zolpidem Tartrate (Ambien) 5 mg PO HS PRN PRN Reason: Insomnia Stop: 11/11/16 13:43 General: no acute distress, other (obese) HEENT: atraumatic, normocephalic, PERRLA, EOMI, moist mucous membrane Neck: supple, no thyromegaly, no lymphadenopathy Cardiovascular: S1S2, regular Lungs: clear to auscultation bilaterally, clear to percussion Abdomen: soft, no tender, no distended Extremities: other (Let foot 2nd toe wound, no erythema. Healing.), no cyanosis , no clubbing, no edema Neurological: awake, alert, oriented Infectious Disease Assmt/Plan - Problem List Patient Problems: All Active Problems CHF (Acute) DEPRESION (Acute) DM (Acute) HTN (Acute) MORBID OBESITY (Acute) SI (Acute) - Assessment Assessment: Impression: 1. Cellulitis of left foot, 2nd toe, with superficial small wound. 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 2. Psychosis. 3. MRSA colonization. - Plan Plan: Continue wound care.
--- NOTE | 2016-09-23 02:17 | Progress Notes ---
SUBJECTIVE: Chart reviewed and the patient interviewed. Also discussed the patient's condition with the staff and reviewed records and labs. The patient is still anxious and is still in irritable mood. The patient also still has periods of being suspicious and paranoid. The patient also is still gets agitated at times when staff tries to help him with his ADLs. Otherwise, the patient is more cooperative with his treatment and seems to be slightly less agitated and less depressed. Also, continued to comply with taking Celexa and the dose increased to 30 mg every day. Also, continue to take Risperdal in a dose of 2 mg every day. The patient's affect is bright. The patient is less depressed, but he still needs close monitoring of his condition and his behavior. ASSESSMENT: The patient is still depressed and considered to be gravely disabled. TREATMENT PLAN: We will continue monitoring his behavior and his condition closely. Also, continue Celexa and Risperdal same dose and continue to follow up. [facility]# [id number]
[2016-09-23] MEDS: INSULIN ASPART SLIDING SCALE 100 UNITS/ML UNIT SUBQ SCH ×4 (06:33→20:39)
[2016-09-23] MEDS: Levothyroxine 0.1 Mg Tab PO SCH (06:59)
[2016-09-23] MEDS: Albuterol/Ipratropium Neb 3 ML AERS HHN SCH ×2 (07:02→15:21)
[2016-09-23] MEDS: Insulin Detemir 100 units/mL 10mL Vial SUBQ SCH ×2 (07:08→17:19)
[2016-09-23] MEDS: Potassium Chloride Elixir 20 mEq /15 mL UDC PO SCH (08:34)
[2016-09-23] MEDS: Pantoprazole 40 mg EC Tab PO SCH (08:38)
--- NOTE | 2016-09-23 13:07 | Infectious Disease Prog Note ---
Infectious Disease Subjective - Review of Systems Service Date: 09/23/16 Subjective: no new change. Infectious Disease Objective - Results Result Diagrams: 09/15/16 07:50 09/15/16 07:50 Recent Labs: Laboratory Last Values WBC 9.1 Th/cmm (4.8-10.8) 09/15/16 07:50 RBC 5.60 Mil/cmm (3.80-5.80) 09/15/16 07:50 Hgb 16.0 gm/dL (12.6-17.4) 09/15/16 07:50 Hct 47.3 % (39.0-49.0) 09/15/16 07:50 MCV 84.3 fl (80-99) 09/15/16 07:50 MCH 28.6 pg (27.0-31.0) 09/15/16 07:50 MCHC Differential 33.9 pg (28.0-36.0) 09/15/16 07:50 RDW 12.7 % (11.5-20.0) 09/15/16 07:50 Plt Count 213 Th/cmm (150-400) 09/15/16 07:50 MPV 7.7 fl 09/15/16 07:50 Neutrophils % 82.0 % (40.0-80.0) H 09/15/16 07:50 Lymphocytes % 11.5 % (20.0-50.0) L 09/15/16 07:50 Monocytes % 4.4 % (2.0-10.0) 09/15/16 07:50 Eosinophils % 1.9 % (0.0-5.0) 09/15/16 07:50 Basophils % 0.2 % (0.0-2.0) 09/15/16 07:50 Sodium 127 mEq/L (136-145) L 09/15/16 07:50 Potassium 4.3 mEq/L (3.5-5.1) 09/15/16 07:50 Chloride 91 mEq/L (98-107) L 09/15/16 07:50 Carbon Dioxide 33.3 mEq/L (21.0-31.0) H 09/15/16 07:50 Anion Gap 7.0 (7.0-16.0) 09/15/16 07:50 BUN 18 mg/dL (7-25) 09/15/16 07:50 Creatinine 0.8 mg/dL (0.7-1.3) 09/15/16 07:50 Est GFR ( Amer) TNP 09/15/16 07:50 Est GFR (Non-Af Amer) TNP 09/15/16 07:50 BUN/Creatinine Ratio 22.5 09/15/16 07:50 Glucose 243 mg/dL (70-105) H 09/15/16 07:50 POC Glucose 212 MG/DL (70 - 105) H 09/23/16 11:22 Hemoglobin A1c % 12.2 % (4.0-6.0) H 09/12/16 18:30 Calcium 10.0 mg/dL (8.6-10.3) 09/15/16 07:50 - Physical Exam Vitals and I&O: Vital Signs Temp 97.6 F 09/22/16 22:25 Pulse 89 09/23/16 08:39 Resp 18 09/23/16 08:00 BP 112/66 09/23/16 08:39 Pulse Ox 92 09/23/16 07:02 Intake & Output 09/22/16 09/23/16 09/23/16 18:59 06:59 18:59 Intake Total 900 Balance 900 Intake: Oral 900 Other: # Voids 3 2 # Bowel Movements 1 Active Medications: Current Medications Acetaminophen (Tylenol) 650 mg PO Q6HR PRN PRN Reason: mild pain Stop: 11/11/16 13:30 Acetaminophen/Hydrocodone Bitart ([place] 10 Mg/325 Mg) 1 tab PO Q6H PRN PRN Reason: Pain (Moderate-Severe) Stop: 11/11/16 13:30 Al Hydrox/Mg Hydrox/Simethicone (Maalox) 30 ml PO Q6H PRN PRN Reason: GI DISTRESS Stop: 11/11/16 13:43 Albuterol/Ipratropium (Duoneb Neb) 3 ml HHN Q8HRT [facility] Stop: 11/11/16 14:59 Last Admin: 09/23/16 07:02 Dose: 3 ml Albuterol/Ipratropium (Duoneb Neb) 3 ml HHN Q2H PRN PRN Reason: Wheezing Stop: 11/13/16 16:02 Last Admin: 09/14/16 20:24 Dose: 3 ml Aspirin (Ecotrin) 81 mg PO DAILY [facility] Stop: 11/12/16 08:59 Last Admin: 09/23/16 08:38 Dose: 81 mg Carisoprodol (Soma) 350 mg PO Q8HR PRN PRN Reason: severe muscle spasms Stop: 11/14/16 11:10 Last Admin: 09/16/16 10:30 Dose: 350 mg Carvedilol (Coreg) 3.125 mg PO BID [facility] Stop: 11/11/16 16:59 Last Admin: 09/23/16 08:38 Dose: Not Given Citalopram Hydrobromide (Celexa) 30 mg PO DAILY [facility] PRN Reason: Protocol Stop: 11/12/16 08:59 Last Admin: 09/23/16 08:39 Dose: 30 mg Docusate Sodium (Colace) 500 mg PO BID [facility] Stop: 11/12/16 09:44 Last Admin: 09/23/16 08:35 Dose: Not Given Furosemide (Lasix) 40 mg PO BID [facility] Stop: 11/11/16 16:59 Last Admin: 09/23/16 08:37 Dose: Not Given Hydroxyzine Pamoate (Vistaril) 25 mg PO Q4HR PRN; Protocol PRN Reason: Anxiety Stop: 11/13/16 13:36 Insulin Aspart (Novolog Insulin Sliding Scale) 0 units SUBQ ACHS [facility] PRN Reason: Protocol Stop: 11/11/16 16:29 Last Admin: 09/23/16 11:44 Dose: 2 units Insulin Detemir (Levemir Insulin) 40 units SUBQ QDAC [facility] Stop: 11/12/16 07:29 Last Admin: 09/23/16 07:08 Dose: 40 units Insulin Detemir (Levemir Insulin) 30 units SUBQ QDIPM [facility] Stop: 11/11/16 17:44 Last Admin: 09/22/16 17:50 Dose: 30 unit Levothyroxine Sodium (Synthroid) 0.1 mg PO QDAC [facility] Stop: 11/12/16 07:29 Last Admin: 09/23/16 06:59 Dose: 0.1 mg Lorazepam (Ativan) 1 mg IVP Q4H PRN; Protocol PRN Reason: Anxiety/Agitation Stop: 11/11/16 13:43 Magnesium Hydroxide (Milk Of Magnesia) 30 ml PO BID PRN PRN Reason: Constipation Stop: 11/11/16 18:44 Last Admin: 09/19/16 17:22 Dose: 30 ml Metformin HCl (Glucophage) 850 mg PO BIDWM [facility] Stop: 11/17/16 17:59 Last Admin: 09/23/16 08:37 Dose: 850 mg Nateglinide (Starlix) 120 mg PO AC [facility] Stop: 11/17/16 11:29 Last Admin: 09/23/16 11:45 Dose: 120 mg Ondansetron HCl (Zofran Odt) 4 mg PO TID PRN PRN Reason: Nausea / Vomiting Stop: 11/11/16 13:30 Pantoprazole Sodium (Protonix) 40 mg PO DAILY [facility] Stop: 11/12/16 08:59 Last Admin: 09/23/16 08:38 Dose: 40 mg Potassium Chloride (Potassium Chloride Elixir) 16 meq PO DAILY [facility] Stop: 11/12/16 08:59 Last Admin: 09/23/16 08:34 Dose: 16 meq Risperidone (Risperdal) 2 mg PO DAILY [facility] Stop: 11/18/16 11:59 Last Admin: 09/23/16 08:38 Dose: 2 mg Simvastatin (Zocor) 40 mg PO HS [facility] PRN Reason: Protocol Stop: 11/11/16 20:59 Last Admin: 09/22/16 21:35 Dose: 40 mg Spironolactone (Aldactone) 25 mg PO DAILY [facility] Stop: 11/12/16 08:59 Last Admin: 09/23/16 08:39 Dose: Not Given Valsartan (Diovan) 160 mg PO DAILY [facility] Stop: 11/12/16 08:59 Last Admin: 09/23/16 08:35 Dose: Not Given Zolpidem Tartrate (Ambien) 5 mg PO HS PRN PRN Reason: Insomnia Stop: 11/11/16 13:43 General: no acute distress, other (obese) HEENT: atraumatic, normocephalic, PERRLA, EOMI, moist mucous membrane Neck: supple Cardiovascular: S1S2, regular Lungs: clear to auscultation bilaterally, clear to percussion Abdomen: soft, no tender, no distended Extremities: other (2nd toe wound is healing.), no cyanosis, no clubbing, no edema Neurological: awake, alert, oriented Skin: intact Infectious Disease Assmt/Plan - Problem List Patient Problems: All Active Problems CHF (Acute) DEPRESION (Acute) DM (Acute) HTN (Acute) MORBID OBESITY (Acute) SI (Acute) - Assessment Assessment: Impression: 1. Cellulitis of left foot, 2nd toe, with superficial small wound. 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 2. Psychosis. 3. MRSA colonization. - Plan Plan: Continue wound care.
--- NOTE | 2016-09-23 15:30 | General Progress Note ---
Subjective - Review of Systems Subjective: no change Objective - Results Result Diagrams: 09/15/16 07:50 09/15/16 07:50 Recent Labs: Laboratory Last Values WBC 9.1 Th/cmm (4.8-10.8) 09/15/16 07:50 RBC 5.60 Mil/cmm (3.80-5.80) 09/15/16 07:50 Hgb 16.0 gm/dL (12.6-17.4) 09/15/16 07:50 Hct 47.3 % (39.0-49.0) 09/15/16 07:50 MCV 84.3 fl (80-99) 09/15/16 07:50 MCH 28.6 pg (27.0-31.0) 09/15/16 07:50 MCHC Differential 33.9 pg (28.0-36.0) 09/15/16 07:50 RDW 12.7 % (11.5-20.0) 09/15/16 07:50 Plt Count 213 Th/cmm (150-400) 09/15/16 07:50 MPV 7.7 fl 09/15/16 07:50 Neutrophils % 82.0 % (40.0-80.0) H 09/15/16 07:50 Lymphocytes % 11.5 % (20.0-50.0) L 09/15/16 07:50 Monocytes % 4.4 % (2.0-10.0) 09/15/16 07:50 Eosinophils % 1.9 % (0.0-5.0) 09/15/16 07:50 Basophils % 0.2 % (0.0-2.0) 09/15/16 07:50 Sodium 127 mEq/L (136-145) L 09/15/16 07:50 Potassium 4.3 mEq/L (3.5-5.1) 09/15/16 07:50 Chloride 91 mEq/L (98-107) L 09/15/16 07:50 Carbon Dioxide 33.3 mEq/L (21.0-31.0) H 09/15/16 07:50 Anion Gap 7.0 (7.0-16.0) 09/15/16 07:50 BUN 18 mg/dL (7-25) 09/15/16 07:50 Creatinine 0.8 mg/dL (0.7-1.3) 09/15/16 07:50 Est GFR ( Amer) TNP 09/15/16 07:50 Est GFR (Non-Af Amer) TNP 09/15/16 07:50 BUN/Creatinine Ratio 22.5 09/15/16 07:50 Glucose 243 mg/dL (70-105) H 09/15/16 07:50 POC Glucose 212 MG/DL (70 - 105) H 09/23/16 11:22 Hemoglobin A1c % 12.2 % (4.0-6.0) H 09/12/16 18:30 Calcium 10.0 mg/dL (8.6-10.3) 09/15/16 07:50 - Physical Exam Vitals and I&O: Vital Signs Temp 97.6 F 09/22/16 22:25 Pulse 89 09/23/16 15:21 Resp 22 09/23/16 15:21 BP 112/66 09/23/16 08:39 Pulse Ox 94 09/23/16 15:21 Intake & Output 09/22/16 09/23/16 09/23/16 18:59 06:59 18:59 Intake Total 900 Balance 900 Intake: Oral 900 Other: # Voids 3 2 # Bowel Movements 1 Active Medications: Current Medications Acetaminophen (Tylenol) 650 mg PO Q6HR PRN PRN Reason: mild pain Stop: 11/11/16 13:30 Acetaminophen/Hydrocodone Bitart ([place] 10 Mg/325 Mg) 1 tab PO Q6H PRN PRN Reason: Pain (Moderate-Severe) Stop: 11/11/16 13:30 Al Hydrox/Mg Hydrox/Simethicone (Maalox) 30 ml PO Q6H PRN PRN Reason: GI DISTRESS Stop: 11/11/16 13:43 Albuterol/Ipratropium (Duoneb Neb) 3 ml HHN Q8HRT [facility] Stop: 11/11/16 14:59 Last Admin: 09/23/16 15:21 Dose: 3 ml Albuterol/Ipratropium (Duoneb Neb) 3 ml HHN Q2H PRN PRN Reason: Wheezing Stop: 11/13/16 16:02 Last Admin: 09/14/16 20:24 Dose: 3 ml Aspirin (Ecotrin) 81 mg PO DAILY [facility] Stop: 11/12/16 08:59 Last Admin: 09/23/16 08:38 Dose: 81 mg Carisoprodol (Soma) 350 mg PO Q8HR PRN PRN Reason: severe muscle spasms Stop: 11/14/16 11:10 Last Admin: 09/16/16 10:30 Dose: 350 mg Carvedilol (Coreg) 3.125 mg PO BID [facility] Stop: 11/11/16 16:59 Last Admin: 09/23/16 08:38 Dose: Not Given Citalopram Hydrobromide (Celexa) 30 mg PO DAILY [facility] PRN Reason: Protocol Stop: 11/12/16 08:59 Last Admin: 09/23/16 08:39 Dose: 30 mg Docusate Sodium (Colace) 500 mg PO BID [facility] Stop: 11/12/16 09:44 Last Admin: 09/23/16 08:35 Dose: Not Given Furosemide (Lasix) 40 mg PO BID [facility] Stop: 11/11/16 16:59 Last Admin: 09/23/16 08:37 Dose: Not Given Hydroxyzine Pamoate (Vistaril) 25 mg PO Q4HR PRN; Protocol PRN Reason: Anxiety Stop: 11/13/16 13:36 Insulin Aspart (Novolog Insulin Sliding Scale) 0 units SUBQ ACHS [facility] PRN Reason: Protocol Stop: 11/11/16 16:29 Last Admin: 09/23/16 11:44 Dose: 2 units Insulin Detemir (Levemir Insulin) 40 units SUBQ QDAC [facility] Stop: 11/12/16 07:29 Last Admin: 09/23/16 07:08 Dose: 40 units Insulin Detemir (Levemir Insulin) 30 units SUBQ QDIPM [facility] Stop: 11/11/16 17:44 Last Admin: 09/22/16 17:50 Dose: 30 unit Levothyroxine Sodium (Synthroid) 0.1 mg PO QDAC [facility] Stop: 11/12/16 07:29 Last Admin: 09/23/16 06:59 Dose: 0.1 mg Lorazepam (Ativan) 1 mg IVP Q4H PRN; Protocol PRN Reason: Anxiety/Agitation Stop: 11/11/16 13:43 Magnesium Hydroxide (Milk Of Magnesia) 30 ml PO BID PRN PRN Reason: Constipation Stop: 11/11/16 18:44 Last Admin: 09/19/16 17:22 Dose: 30 ml Metformin HCl (Glucophage) 850 mg PO BIDWM [facility] Stop: 11/17/16 17:59 Last Admin: 09/23/16 08:37 Dose: 850 mg Nateglinide (Starlix) 120 mg PO AC [facility] Stop: 11/17/16 11:29 Last Admin: 09/23/16 11:45 Dose: 120 mg Ondansetron HCl (Zofran Odt) 4 mg PO TID PRN PRN Reason: Nausea / Vomiting Stop: 11/11/16 13:30 Pantoprazole Sodium (Protonix) 40 mg PO DAILY [facility] Stop: 11/12/16 08:59 Last Admin: 09/23/16 08:38 Dose: 40 mg Potassium Chloride (Potassium Chloride Elixir) 16 meq PO DAILY [facility] Stop: 11/12/16 08:59 Last Admin: 09/23/16 08:34 Dose: 16 meq Risperidone (Risperdal) 2 mg PO DAILY [facility] Stop: 11/18/16 11:59 Last Admin: 09/23/16 08:38 Dose: 2 mg Simvastatin (Zocor) 40 mg PO HS [facility] PRN Reason: Protocol Stop: 11/11/16 20:59 Last Admin: 09/22/16 21:35 Dose: 40 mg Spironolactone (Aldactone) 25 mg PO DAILY [facility] Stop: 11/12/16 08:59 Last Admin: 09/23/16 08:39 Dose: Not Given Valsartan (Diovan) 160 mg PO DAILY [facility] Stop: 11/12/16 08:59 Last Admin: 09/23/16 08:35 Dose: Not Given Zolpidem Tartrate (Ambien) 5 mg PO HS PRN PRN Reason: Insomnia Stop: 11/11/16 13:43 Assessment/Plan - Problem List Patient Problems: All Active Problems CHF (Acute) DEPRESION (Acute) DM (Acute) HTN (Acute) MORBID OBESITY (Acute) SI (Acute) - Assessment Assessment: dm2 psychosis
--- NOTE | 2016-09-23 22:40 | Progress Notes ---
SUBJECTIVE: The patient seen, chart reviewed, discussed with staff. The patient is still noted to be still anxious, irritable, paranoia, suspicion of having ____ paranoia, less agitated, treatment compliant. No violence, seems to be doing better. Still somewhat depressed and withdrawn, still hopeless at times. ASSESSMENT: The patient remains depressed, confused, sleeping, but arousable, withdrawn, isolative, still with sad affect. PLAN: Continue to monitor and titrate medications. Medications were reviewed. We will continue to make medication adjustments to target symptoms of depression any perceptual disturbances. [facility]# [id number]
[2016-09-24] MEDS: Levothyroxine 0.1 Mg Tab PO SCH (06:44)
[2016-09-24] MEDS: Insulin Detemir 100 units/mL 10mL Vial SUBQ SCH ×2 (06:50→18:00)
[2016-09-24] MEDS: INSULIN ASPART SLIDING SCALE 100 UNITS/ML UNIT SUBQ SCH ×4 (06:52→20:53)
[2016-09-24] MEDS: Albuterol/Ipratropium Neb 3 ML AERS HHN SCH ×3 (07:07→22:02)
[2016-09-24] MEDS: Pantoprazole 40 mg EC Tab PO SCH (09:33)
[2016-09-24] MEDS: Potassium Chloride Elixir 20 mEq /15 mL UDC PO SCH (09:33)
--- NOTE | 2016-09-24 18:13 | Infectious Disease Prog Note ---
Infectious Disease Subjective - Review of Systems Service Date: 09/24/16 Subjective: no new change. Infectious Disease Objective - Results Result Diagrams: 09/15/16 07:50 09/15/16 07:50 Recent Labs: Laboratory Last Values WBC 9.1 Th/cmm (4.8-10.8) 09/15/16 07:50 RBC 5.60 Mil/cmm (3.80-5.80) 09/15/16 07:50 Hgb 16.0 gm/dL (12.6-17.4) 09/15/16 07:50 Hct 47.3 % (39.0-49.0) 09/15/16 07:50 MCV 84.3 fl (80-99) 09/15/16 07:50 MCH 28.6 pg (27.0-31.0) 09/15/16 07:50 MCHC Differential 33.9 pg (28.0-36.0) 09/15/16 07:50 RDW 12.7 % (11.5-20.0) 09/15/16 07:50 Plt Count 213 Th/cmm (150-400) 09/15/16 07:50 MPV 7.7 fl 09/15/16 07:50 Neutrophils % 82.0 % (40.0-80.0) H 09/15/16 07:50 Lymphocytes % 11.5 % (20.0-50.0) L 09/15/16 07:50 Monocytes % 4.4 % (2.0-10.0) 09/15/16 07:50 Eosinophils % 1.9 % (0.0-5.0) 09/15/16 07:50 Basophils % 0.2 % (0.0-2.0) 09/15/16 07:50 Sodium 127 mEq/L (136-145) L 09/15/16 07:50 Potassium 4.3 mEq/L (3.5-5.1) 09/15/16 07:50 Chloride 91 mEq/L (98-107) L 09/15/16 07:50 Carbon Dioxide 33.3 mEq/L (21.0-31.0) H 09/15/16 07:50 Anion Gap 7.0 (7.0-16.0) 09/15/16 07:50 BUN 18 mg/dL (7-25) 09/15/16 07:50 Creatinine 0.8 mg/dL (0.7-1.3) 09/15/16 07:50 Est GFR ( Amer) TNP 09/15/16 07:50 Est GFR (Non-Af Amer) TNP 09/15/16 07:50 BUN/Creatinine Ratio 22.5 09/15/16 07:50 Glucose 243 mg/dL (70-105) H 09/15/16 07:50 POC Glucose 209 MG/DL (70 - 105) H 09/24/16 16:38 Hemoglobin A1c % 12.2 % (4.0-6.0) H 09/12/16 18:30 Calcium 10.0 mg/dL (8.6-10.3) 09/15/16 07:50 - Physical Exam Vitals and I&O: Vital Signs Temp 98.0 F 09/24/16 15:08 Pulse 61 09/24/16 17:19 Resp 70 09/24/16 15:08 BP 146/62 09/24/16 17:19 Pulse Ox 97 09/24/16 15:08 Intake & Output 09/23/16 09/24/16 09/24/16 18:59 06:59 18:59 Intake Total 1200 480 Output Total 400 Balance 1200 80 Intake: Oral 1200 480 Output: Urine 400 Other: # Bowel Movements 1 Stool Characteristics Formed Active Medications: Current Medications Acetaminophen (Tylenol) 650 mg PO Q6HR PRN PRN Reason: mild pain Stop: 11/11/16 13:30 Acetaminophen/Hydrocodone Bitart ([place] 10 Mg/325 Mg) 1 tab PO Q6H PRN PRN Reason: Pain (Moderate-Severe) Stop: 11/11/16 13:30 Al Hydrox/Mg Hydrox/Simethicone (Maalox) 30 ml PO Q6H PRN PRN Reason: GI DISTRESS Stop: 11/11/16 13:43 Albuterol/Ipratropium (Duoneb Neb) 3 ml HHN Q8HRT [facility] Stop: 11/11/16 14:59 Last Admin: 09/24/16 15:07 Dose: 3 ml Albuterol/Ipratropium (Duoneb Neb) 3 ml HHN Q2H PRN PRN Reason: Wheezing Stop: 11/13/16 16:02 Last Admin: 09/14/16 20:24 Dose: 3 ml Aspirin (Ecotrin) 81 mg PO DAILY [facility] Stop: 11/12/16 08:59 Last Admin: 09/24/16 09:34 Dose: 81 mg Carisoprodol (Soma) 350 mg PO Q8HR PRN PRN Reason: severe muscle spasms Stop: 11/14/16 11:10 Last Admin: 09/16/16 10:30 Dose: 350 mg Carvedilol (Coreg) 3.125 mg PO BID [facility] Stop: 11/11/16 16:59 Last Admin: 09/24/16 17:19 Dose: Not Given Citalopram Hydrobromide (Celexa) 30 mg PO DAILY [facility] PRN Reason: Protocol Stop: 11/12/16 08:59 Last Admin: 09/24/16 09:34 Dose: 30 mg Docusate Sodium (Colace) 500 mg PO BID [facility] Stop: 11/12/16 09:44 Last Admin: 09/24/16 17:18 Dose: 500 mg Furosemide (Lasix) 40 mg PO BID [facility] Stop: 11/11/16 16:59 Last Admin: 09/24/16 17:18 Dose: 40 mg Hydroxyzine Pamoate (Vistaril) 25 mg PO Q4HR PRN; Protocol PRN Reason: Anxiety Stop: 11/13/16 13:36 Insulin Aspart (Novolog Insulin Sliding Scale) 0 units SUBQ ACHS [facility] PRN Reason: Protocol Stop: 11/11/16 16:29 Last Admin: 09/24/16 17:30 Dose: 2 units Insulin Detemir (Levemir Insulin) 40 units SUBQ QDAC [facility] Stop: 11/12/16 07:29 Last Admin: 09/24/16 06:50 Dose: 40 units Insulin Detemir (Levemir Insulin) 30 units SUBQ QDIPM [facility] Stop: 11/11/16 17:44 Last Admin: 09/23/16 17:19 Dose: 30 unit Levothyroxine Sodium (Synthroid) 0.1 mg PO QDAC [facility] Stop: 11/12/16 07:29 Last Admin: 09/24/16 06:44 Dose: 0.1 mg Lorazepam (Ativan) 1 mg IVP Q4H PRN; Protocol PRN Reason: Anxiety/Agitation Stop: 11/11/16 13:43 Magnesium Hydroxide (Milk Of Magnesia) 30 ml PO BID PRN PRN Reason: Constipation Stop: 11/11/16 18:44 Last Admin: 09/19/16 17:22 Dose: 30 ml Metformin HCl (Glucophage) 850 mg PO BIDWM [facility] Stop: 11/17/16 17:59 Last Admin: 09/24/16 17:18 Dose: 850 mg Nateglinide (Starlix) 120 mg PO AC [facility] Stop: 11/17/16 11:29 Last Admin: 09/24/16 17:18 Dose: 120 mg Ondansetron HCl (Zofran Odt) 4 mg PO TID PRN PRN Reason: Nausea / Vomiting Stop: 11/11/16 13:30 Pantoprazole Sodium (Protonix) 40 mg PO DAILY [facility] Stop: 11/12/16 08:59 Last Admin: 09/24/16 09:33 Dose: 40 mg Potassium Chloride (Potassium Chloride Elixir) 16 meq PO DAILY [facility] Stop: 11/12/16 08:59 Last Admin: 09/24/16 09:33 Dose: 16 meq Risperidone (Risperdal) 2 mg PO DAILY [facility] Stop: 11/18/16 11:59 Last Admin: 09/24/16 09:33 Dose: 2 mg Simvastatin (Zocor) 40 mg PO HS [facility] PRN Reason: Protocol Stop: 11/11/16 20:59 Last Admin: 09/23/16 20:39 Dose: 40 mg Spironolactone (Aldactone) 25 mg PO DAILY [facility] Stop: 11/12/16 08:59 Last Admin: 09/24/16 09:35 Dose: 25 mg Valsartan (Diovan) 160 mg PO DAILY [facility] Stop: 11/12/16 08:59 Last Admin: 09/24/16 09:35 Dose: 160 mg Zolpidem Tartrate (Ambien) 5 mg PO HS PRN PRN Reason: Insomnia Stop: 11/11/16 13:43 General: no acute distress, other (obese) HEENT: atraumatic, normocephalic, PERRLA Neck: supple, no thyromegaly, no lymphadenopathy Cardiovascular: S1S2, regular Lungs: clear to auscultation bilaterally, clear to percussion Abdomen: soft, no tender, no distended Extremities: no cyanosis, no clubbing, no edema Neurological: awake, alert, oriented Skin: intact Infectious Disease Assmt/Plan - Problem List Patient Problems: All Active Problems CHF (Acute) DEPRESION (Acute) DM (Acute) HTN (Acute) MORBID OBESITY (Acute) SI (Acute) - Assessment Assessment: Impression: 1. Cellulitis of left foot, 2nd toe, with superficial small wound. cellulitis has improved. 2. Psychosis. 3. MRSA colonization. - Plan Plan: Continue wound care.
--- NOTE | 2016-09-24 23:23 | Progress Notes ---
SUBJECTIVE: The patient was seen, chart reviewed and discussed with staff. The patient is refusing interview, sleeping, arousable, but not amenable to interview, remains anxious, irritable, still paranoid. He has been treatment compliant. No violence. Seems to be doing better, but depressed, withdrawn, upset, and hopeless at times, still irritable with mood lability. ASSESSMENT: The patient remains depressed, still confused and withdrawn. PLAN: Continue to monitor and titrate medications. Safety concerns do persist. The patient is unable to participate in self-care planning discussions at this time due to the current severity of his symptoms. [facility]# [id number] MICKEY
[2016-09-25] MEDS: INSULIN ASPART SLIDING SCALE 100 UNITS/ML UNIT SUBQ SCH ×4 (06:41→20:36)
[2016-09-25] MEDS: Levothyroxine 0.1 Mg Tab PO SCH (06:56)
[2016-09-25] MEDS: Insulin Detemir 100 units/mL 10mL Vial SUBQ SCH ×2 (06:57→17:13)
[2016-09-25] MEDS: Albuterol/Ipratropium Neb 3 ML AERS HHN SCH ×3 (07:13→22:44)
[2016-09-25] MEDS: Potassium Chloride Elixir 20 mEq /15 mL UDC PO SCH (08:28)
[2016-09-25] MEDS: Pantoprazole 40 mg EC Tab PO SCH (08:30)
--- NOTE | 2016-09-25 13:00 | Infectious Disease Prog Note ---
Infectious Disease Subjective - Review of Systems Service Date: 09/25/16 Subjective: no new change. Infectious Disease Objective - Results Result Diagrams: 09/15/16 07:50 09/15/16 07:50 Recent Labs: Laboratory Last Values WBC 9.1 Th/cmm (4.8-10.8) 09/15/16 07:50 RBC 5.60 Mil/cmm (3.80-5.80) 09/15/16 07:50 Hgb 16.0 gm/dL (12.6-17.4) 09/15/16 07:50 Hct 47.3 % (39.0-49.0) 09/15/16 07:50 MCV 84.3 fl (80-99) 09/15/16 07:50 MCH 28.6 pg (27.0-31.0) 09/15/16 07:50 MCHC Differential 33.9 pg (28.0-36.0) 09/15/16 07:50 RDW 12.7 % (11.5-20.0) 09/15/16 07:50 Plt Count 213 Th/cmm (150-400) 09/15/16 07:50 MPV 7.7 fl 09/15/16 07:50 Neutrophils % 82.0 % (40.0-80.0) H 09/15/16 07:50 Lymphocytes % 11.5 % (20.0-50.0) L 09/15/16 07:50 Monocytes % 4.4 % (2.0-10.0) 09/15/16 07:50 Eosinophils % 1.9 % (0.0-5.0) 09/15/16 07:50 Basophils % 0.2 % (0.0-2.0) 09/15/16 07:50 Sodium 127 mEq/L (136-145) L 09/15/16 07:50 Potassium 4.3 mEq/L (3.5-5.1) 09/15/16 07:50 Chloride 91 mEq/L (98-107) L 09/15/16 07:50 Carbon Dioxide 33.3 mEq/L (21.0-31.0) H 09/15/16 07:50 Anion Gap 7.0 (7.0-16.0) 09/15/16 07:50 BUN 18 mg/dL (7-25) 09/15/16 07:50 Creatinine 0.8 mg/dL (0.7-1.3) 09/15/16 07:50 Est GFR ( Amer) TNP 09/15/16 07:50 Est GFR (Non-Af Amer) TNP 09/15/16 07:50 BUN/Creatinine Ratio 22.5 09/15/16 07:50 Glucose 243 mg/dL (70-105) H 09/15/16 07:50 POC Glucose 264 MG/DL (70 - 105) H 09/25/16 11:40 Hemoglobin A1c % 12.2 % (4.0-6.0) H 09/12/16 18:30 Calcium 10.0 mg/dL (8.6-10.3) 09/15/16 07:50 - Physical Exam Vitals and I&O: Vital Signs Temp 97.6 F 09/25/16 06:08 Pulse 80 09/25/16 09:26 Resp 2 09/25/16 07:15 BP 113/46 09/25/16 09:26 Pulse Ox 94 09/25/16 07:15 Intake & Output 09/24/16 09/25/16 09/25/16 18:59 06:59 18:59 Intake Total 1200 480 Balance 1200 480 Intake: Oral 1200 480 Other: # Voids 4 3 # Bowel Movements 1 0 Stool Characteristics Formed Formed Formed Active Medications: Current Medications Acetaminophen (Tylenol) 650 mg PO Q6HR PRN PRN Reason: mild pain Stop: 11/11/16 13:30 Acetaminophen/Hydrocodone Bitart ([place] 10 Mg/325 Mg) 1 tab PO Q6H PRN PRN Reason: Pain (Moderate-Severe) Stop: 11/11/16 13:30 Al Hydrox/Mg Hydrox/Simethicone (Maalox) 30 ml PO Q6H PRN PRN Reason: GI DISTRESS Stop: 11/11/16 13:43 Albuterol/Ipratropium (Duoneb Neb) 3 ml HHN Q8HRT [facility] Stop: 11/11/16 14:59 Last Admin: 09/25/16 07:13 Dose: 3 ml Albuterol/Ipratropium (Duoneb Neb) 3 ml HHN Q2H PRN PRN Reason: Wheezing Stop: 11/13/16 16:02 Last Admin: 09/14/16 20:24 Dose: 3 ml Aspirin (Ecotrin) 81 mg PO DAILY [facility] Stop: 11/12/16 08:59 Last Admin: 09/25/16 08:30 Dose: 81 mg Carisoprodol (Soma) 350 mg PO Q8HR PRN PRN Reason: severe muscle spasms Stop: 11/14/16 11:10 Last Admin: 09/16/16 10:30 Dose: 350 mg Carvedilol (Coreg) 3.125 mg PO BID [facility] Stop: 11/11/16 16:59 Last Admin: 09/25/16 09:23 Dose: Not Given Citalopram Hydrobromide (Celexa) 30 mg PO DAILY [facility] PRN Reason: Protocol Stop: 11/12/16 08:59 Last Admin: 09/25/16 08:32 Dose: 30 mg Docusate Sodium (Colace) 500 mg PO BID [facility] Stop: 11/12/16 09:44 Last Admin: 09/25/16 08:31 Dose: 500 mg Furosemide (Lasix) 40 mg PO BID [facility] Stop: 11/11/16 16:59 Last Admin: 09/25/16 09:25 Dose: Not Given Hydroxyzine Pamoate (Vistaril) 25 mg PO Q4HR PRN; Protocol PRN Reason: Anxiety Stop: 11/13/16 13:36 Insulin Aspart (Novolog Insulin Sliding Scale) 0 units SUBQ ACHS [facility] PRN Reason: Protocol Stop: 11/11/16 16:29 Last Admin: 09/25/16 11:58 Dose: 4 units Insulin Detemir (Levemir Insulin) 40 units SUBQ QDAC [facility] Stop: 11/12/16 07:29 Last Admin: 09/25/16 06:57 Dose: 40 units Insulin Detemir (Levemir Insulin) 30 units SUBQ QDIPM [facility] Stop: 11/11/16 17:44 Last Admin: 09/24/16 18:00 Dose: 30 unit Levothyroxine Sodium (Synthroid) 0.1 mg PO QDAC [facility] Stop: 11/12/16 07:29 Last Admin: 09/25/16 06:56 Dose: 0.1 mg Lorazepam (Ativan) 1 mg IVP Q4H PRN; Protocol PRN Reason: Anxiety/Agitation Stop: 11/11/16 13:43 Magnesium Hydroxide (Milk Of Magnesia) 30 ml PO BID PRN PRN Reason: Constipation Stop: 11/11/16 18:44 Last Admin: 09/19/16 17:22 Dose: 30 ml Metformin HCl (Glucophage) 850 mg PO BIDWM [facility] Stop: 11/17/16 17:59 Last Admin: 09/25/16 08:30 Dose: 850 mg Nateglinide (Starlix) 120 mg PO AC [facility] Stop: 11/17/16 11:29 Last Admin: 09/25/16 11:59 Dose: 120 mg Ondansetron HCl (Zofran Odt) 4 mg PO TID PRN PRN Reason: Nausea / Vomiting Stop: 11/11/16 13:30 Pantoprazole Sodium (Protonix) 40 mg PO DAILY [facility] Stop: 11/12/16 08:59 Last Admin: 09/25/16 08:30 Dose: 40 mg Potassium Chloride (Potassium Chloride Elixir) 16 meq PO DAILY [facility] Stop: 11/12/16 08:59 Last Admin: 09/25/16 08:28 Dose: 16 meq Risperidone (Risperdal) 2 mg PO DAILY [facility] Stop: 11/18/16 11:59 Last Admin: 09/25/16 08:30 Dose: 2 mg Simvastatin (Zocor) 40 mg PO HS [facility] PRN Reason: Protocol Stop: 11/11/16 20:59 Last Admin: 09/24/16 20:51 Dose: 40 mg Spironolactone (Aldactone) 25 mg PO DAILY [facility] Stop: 11/12/16 08:59 Last Admin: 09/25/16 09:25 Dose: Not Given Valsartan (Diovan) 160 mg PO DAILY [facility] Stop: 11/12/16 08:59 Last Admin: 09/25/16 09:26 Dose: Not Given Zolpidem Tartrate (Ambien) 5 mg PO HS PRN PRN Reason: Insomnia Stop: 11/11/16 13:43 General: no acute distress, other (obese) HEENT: atraumatic, normocephalic, PERRLA, EOMI, moist mucous membrane Neck: supple Cardiovascular: S1S2, regular Lungs: clear to auscultation bilaterally, clear to percussion Abdomen: soft, obese, no tender, no distended, no mass Extremities: no cyanosis, no clubbing, no edema Neurological: awake, alert, oriented Skin: intact Infectious Disease Assmt/Plan - Problem List Patient Problems: All Active Problems CHF (Acute) DEPRESION (Acute) DM (Acute) HTN (Acute) MORBID OBESITY (Acute) SI (Acute) - Assessment Assessment: Impression: 1. Cellulitis of left foot, 2nd toe, with superficial small wound. cellulitis has improved. 2. Psychosis. 3. MRSA colonization. - Plan Plan: Continue wound care.
--- NOTE | 2016-09-26 00:17 | Progress Notes ---
SUBJECTIVE: The patient was seen in his room lying in his bed. The patient still remains to be withdrawn and remains anxious and irritable, but according to the nurses, the patient has been compliant now with the treatment and having good appetite, but still with some episodes of outburst behavior. OBJECTIVE: HEENT: Head is atraumatic, normocephalic. Eyes: Bilateral conjunctivae are clear. Pupils are equally round and reactive. NECK: No JVD. Neck is supple. CARDIOVASCULAR: S1 and S2 heard without murmur. LUNGS: Mild inspiratory wheezing noted. ABDOMEN: Soft and nontender. No guarding. EXTREMITIES: No edema. No weakness. ASSESSMENT: 1. Schizophrenia. 2. Depression. 3. Insomnia. 4. Anxiety. 5. Hypertension. 6. Diabetes. 7. Hyperlipidemia. 8. Hypothyroidism. 9. Diabetes. 10. Obesity. PLAN: We will continue to monitor the patient's behavior and we will follow with the Psych doctor, to follow with patient's behavior. [facility]# [id number]
[2016-09-26] MEDS: Levothyroxine 0.1 Mg Tab PO SCH (06:34)
[2016-09-26] MEDS: Insulin Detemir 100 units/mL 10mL Vial SUBQ SCH ×2 (06:34→17:05)
[2016-09-26] MEDS: INSULIN ASPART SLIDING SCALE 100 UNITS/ML UNIT SUBQ SCH ×4 (06:35→20:30)
[2016-09-26] MEDS: Pantoprazole 40 mg EC Tab PO SCH (08:55)
[2016-09-26] MEDS: Potassium Chloride Elixir 20 mEq /15 mL UDC PO SCH (08:56)
[2016-09-26] MEDS: Albuterol/Ipratropium Neb 3 ML AERS HHN SCH ×3 (10:04→23:30)
--- NOTE | 2016-09-26 13:57 | Infectious Disease Prog Note ---
Infectious Disease Subjective - Review of Systems Service Date: 09/26/16 Subjective: no new change. Infectious Disease Objective - Results Result Diagrams: 09/15/16 07:50 09/15/16 07:50 Recent Labs: Laboratory Last Values WBC 9.1 Th/cmm (4.8-10.8) 09/15/16 07:50 RBC 5.60 Mil/cmm (3.80-5.80) 09/15/16 07:50 Hgb 16.0 gm/dL (12.6-17.4) 09/15/16 07:50 Hct 47.3 % (39.0-49.0) 09/15/16 07:50 MCV 84.3 fl (80-99) 09/15/16 07:50 MCH 28.6 pg (27.0-31.0) 09/15/16 07:50 MCHC Differential 33.9 pg (28.0-36.0) 09/15/16 07:50 RDW 12.7 % (11.5-20.0) 09/15/16 07:50 Plt Count 213 Th/cmm (150-400) 09/15/16 07:50 MPV 7.7 fl 09/15/16 07:50 Neutrophils % 82.0 % (40.0-80.0) H 09/15/16 07:50 Lymphocytes % 11.5 % (20.0-50.0) L 09/15/16 07:50 Monocytes % 4.4 % (2.0-10.0) 09/15/16 07:50 Eosinophils % 1.9 % (0.0-5.0) 09/15/16 07:50 Basophils % 0.2 % (0.0-2.0) 09/15/16 07:50 Sodium 127 mEq/L (136-145) L 09/15/16 07:50 Potassium 4.3 mEq/L (3.5-5.1) 09/15/16 07:50 Chloride 91 mEq/L (98-107) L 09/15/16 07:50 Carbon Dioxide 33.3 mEq/L (21.0-31.0) H 09/15/16 07:50 Anion Gap 7.0 (7.0-16.0) 09/15/16 07:50 BUN 18 mg/dL (7-25) 09/15/16 07:50 Creatinine 0.8 mg/dL (0.7-1.3) 09/15/16 07:50 Est GFR ( Amer) TNP 09/15/16 07:50 Est GFR (Non-Af Amer) TNP 09/15/16 07:50 BUN/Creatinine Ratio 22.5 09/15/16 07:50 Glucose 243 mg/dL (70-105) H 09/15/16 07:50 POC Glucose 254 MG/DL (70 - 105) H 09/26/16 11:19 Hemoglobin A1c % 12.2 % (4.0-6.0) H 09/12/16 18:30 Calcium 10.0 mg/dL (8.6-10.3) 09/15/16 07:50 - Physical Exam Vitals and I&O: Vital Signs Temp 98.1 F 09/26/16 05:47 Pulse 68 09/26/16 10:10 Resp 20 09/26/16 10:10 BP 144/67 09/26/16 08:56 Pulse Ox 94 09/26/16 10:10 Intake & Output 09/25/16 09/26/16 09/26/16 18:59 06:59 18:59 Intake Total 2400 480 Output Total 1200 Balance 1200 480 Intake: Oral 2400 480 Output: Urine 1200 Other: # Voids 1 # Bowel Movements 1 0 Stool Characteristics Formed Formed Active Medications: Current Medications Acetaminophen (Tylenol) 650 mg PO Q6HR PRN PRN Reason: mild pain Stop: 11/11/16 13:30 Acetaminophen/Hydrocodone Bitart ([place] 10 Mg/325 Mg) 1 tab PO Q6H PRN PRN Reason: Pain (Moderate-Severe) Stop: 11/11/16 13:30 Al Hydrox/Mg Hydrox/Simethicone (Maalox) 30 ml PO Q6H PRN PRN Reason: GI DISTRESS Stop: 11/11/16 13:43 Albuterol/Ipratropium (Duoneb Neb) 3 ml HHN Q8HRT [facility] Stop: 11/11/16 14:59 Last Admin: 09/26/16 10:04 Dose: 3 ml Albuterol/Ipratropium (Duoneb Neb) 3 ml HHN Q2H PRN PRN Reason: Wheezing Stop: 11/13/16 16:02 Last Admin: 09/14/16 20:24 Dose: 3 ml Aspirin (Ecotrin) 81 mg PO DAILY [facility] Stop: 11/12/16 08:59 Last Admin: 09/26/16 08:55 Dose: 81 mg Carisoprodol (Soma) 350 mg PO Q8HR PRN PRN Reason: severe muscle spasms Stop: 11/14/16 11:10 Last Admin: 09/16/16 10:30 Dose: 350 mg Carvedilol (Coreg) 3.125 mg PO BID [facility] Stop: 11/11/16 16:59 Last Admin: 09/26/16 08:55 Dose: 3.125 mg Citalopram Hydrobromide (Celexa) 30 mg PO DAILY [facility] PRN Reason: Protocol Stop: 11/12/16 08:59 Last Admin: 09/26/16 08:54 Dose: 30 mg Docusate Sodium (Colace) 500 mg PO BID [facility] Stop: 11/12/16 09:44 Last Admin: 09/26/16 08:54 Dose: 500 mg Furosemide (Lasix) 40 mg PO BID [facility] Stop: 11/11/16 16:59 Last Admin: 09/26/16 08:55 Dose: 40 mg Hydroxyzine Pamoate (Vistaril) 25 mg PO Q4HR PRN; Protocol PRN Reason: Anxiety Stop: 11/13/16 13:36 Insulin Aspart (Novolog Insulin Sliding Scale) 0 units SUBQ ACHS [facility] PRN Reason: Protocol Stop: 11/11/16 16:29 Last Admin: 09/26/16 11:44 Dose: 4 units Insulin Detemir (Levemir Insulin) 40 units SUBQ QDAC [facility] Stop: 11/12/16 07:29 Last Admin: 09/26/16 06:34 Dose: 40 units Insulin Detemir (Levemir Insulin) 30 units SUBQ QDIPM [facility] Stop: 11/11/16 17:44 Last Admin: 09/25/16 17:13 Dose: 30 unit Levothyroxine Sodium (Synthroid) 0.1 mg PO QDAC [facility] Stop: 11/12/16 07:29 Last Admin: 09/26/16 06:34 Dose: 0.1 mg Lorazepam (Ativan) 1 mg IVP Q4H PRN; Protocol PRN Reason: Anxiety/Agitation Stop: 11/11/16 13:43 Magnesium Hydroxide (Milk Of Magnesia) 30 ml PO BID PRN PRN Reason: Constipation Stop: 11/11/16 18:44 Last Admin: 09/19/16 17:22 Dose: 30 ml Metformin HCl (Glucophage) 850 mg PO BIDWM [facility] Stop: 11/17/16 17:59 Last Admin: 09/26/16 08:53 Dose: 850 mg Nateglinide (Starlix) 120 mg PO AC [facility] Stop: 11/17/16 11:29 Last Admin: 09/26/16 11:48 Dose: 120 mg Ondansetron HCl (Zofran Odt) 4 mg PO TID PRN PRN Reason: Nausea / Vomiting Stop: 11/11/16 13:30 Pantoprazole Sodium (Protonix) 40 mg PO DAILY [facility] Stop: 11/12/16 08:59 Last Admin: 09/26/16 08:55 Dose: 40 mg Potassium Chloride (Potassium Chloride Elixir) 16 meq PO DAILY [facility] Stop: 11/12/16 08:59 Last Admin: 09/26/16 08:56 Dose: 16 meq Risperidone (Risperdal) 2 mg PO DAILY [facility] Stop: 11/18/16 11:59 Last Admin: 09/26/16 08:55 Dose: 2 mg Simvastatin (Zocor) 40 mg PO HS [facility] PRN Reason: Protocol Stop: 11/11/16 20:59 Last Admin: 09/25/16 20:36 Dose: 40 mg Spironolactone (Aldactone) 25 mg PO DAILY [facility] Stop: 11/12/16 08:59 Last Admin: 09/26/16 08:56 Dose: 25 mg Valsartan (Diovan) 160 mg PO DAILY [facility] Stop: 11/12/16 08:59 Last Admin: 09/26/16 08:54 Dose: 160 mg Zolpidem Tartrate (Ambien) 5 mg PO HS PRN PRN Reason: Insomnia Stop: 11/11/16 13:43 Infectious Disease Assmt/Plan - Problem List Patient Problems: All Active Problems CHF (Acute) DEPRESION (Acute) DM (Acute) HTN (Acute) MORBID OBESITY (Acute) SI (Acute) - Assessment Assessment: Impression: 1. Cellulitis of left foot, 2nd toe, with superficial small wound. cellulitis has improved. 2. Psychosis. 3. MRSA colonization. - Plan Plan: Continue wound care.
--- NOTE | 2016-09-26 18:19 | Progress Notes ---
SUBJECTIVE: Chart reviewed and the patient interviewed. Also discussed the patient's condition with the staff and reviewed records and labs. The patient continued to be severely depressed and he is still withdrawn. The patient also is still feeling hopeless and helpless and interacting minimally with others. The patient also denies any side effects of medications. He also is showing ____ condition and he stays by himself in his bed occupied. manager switch still has difficulty finding a place for the patient and continue to work on placement issue. ASSESSMENT: The patient is still depressed and high risk suicide. TREATMENT PLAN: We will continue monitoring his behavior and his condition closely. Also, continue adjusting psychotropic medications and working on discharge plans and placement issue. JOB# [id number]
--- NOTE | 2016-09-27 03:23 | Progress Notes ---
SUBJECTIVE: Chart reviewed and the patient interviewed. Also discussed the patient's condition with the staff and reviewed records and labs. The patient is still severely depressed and he is still withdrawn. The patient also is interacting minimally with peers and with others. The patient also is still feeling hopeless and helpless. The patient also is having difficulty with his mood. Otherwise, the patient is compliant with taking his medications and the patient denies any side effects of medications. ASSESSMENT: The patient is still depressed. TREATMENT PLAN: We will continue monitoring his behavior and his condition closely. Also, continue to work on his depression and also in his placement issue. JOB# [id number]
[2016-09-27] MEDS: Levothyroxine 0.1 Mg Tab PO SCH (06:30)
[2016-09-27] MEDS: INSULIN ASPART SLIDING SCALE 100 UNITS/ML UNIT SUBQ SCH ×4 (06:31→20:21)
[2016-09-27] MEDS: Insulin Detemir 100 units/mL 10mL Vial SUBQ SCH ×2 (06:32→18:32)
[2016-09-27] MEDS: Albuterol/Ipratropium Neb 3 ML AERS HHN SCH ×2 (07:56→15:58)
[2016-09-27] MEDS: Pantoprazole 40 mg EC Tab PO SCH (09:20)
[2016-09-27] MEDS: Potassium Chloride Elixir 20 mEq /15 mL UDC PO SCH (09:24)
--- NOTE | 2016-09-27 11:47 | Infectious Disease Prog Note ---
Infectious Disease Subjective - Review of Systems Service Date: 09/27/16 Subjective: no new change. Infectious Disease Objective - Results Result Diagrams: 09/15/16 07:50 09/15/16 07:50 Recent Labs: Laboratory Last Values WBC 9.1 Th/cmm (4.8-10.8) 09/15/16 07:50 RBC 5.60 Mil/cmm (3.80-5.80) 09/15/16 07:50 Hgb 16.0 gm/dL (12.6-17.4) 09/15/16 07:50 Hct 47.3 % (39.0-49.0) 09/15/16 07:50 MCV 84.3 fl (80-99) 09/15/16 07:50 MCH 28.6 pg (27.0-31.0) 09/15/16 07:50 MCHC Differential 33.9 pg (28.0-36.0) 09/15/16 07:50 RDW 12.7 % (11.5-20.0) 09/15/16 07:50 Plt Count 213 Th/cmm (150-400) 09/15/16 07:50 MPV 7.7 fl 09/15/16 07:50 Neutrophils % 82.0 % (40.0-80.0) H 09/15/16 07:50 Lymphocytes % 11.5 % (20.0-50.0) L 09/15/16 07:50 Monocytes % 4.4 % (2.0-10.0) 09/15/16 07:50 Eosinophils % 1.9 % (0.0-5.0) 09/15/16 07:50 Basophils % 0.2 % (0.0-2.0) 09/15/16 07:50 Sodium 127 mEq/L (136-145) L 09/15/16 07:50 Potassium 4.3 mEq/L (3.5-5.1) 09/15/16 07:50 Chloride 91 mEq/L (98-107) L 09/15/16 07:50 Carbon Dioxide 33.3 mEq/L (21.0-31.0) H 09/15/16 07:50 Anion Gap 7.0 (7.0-16.0) 09/15/16 07:50 BUN 18 mg/dL (7-25) 09/15/16 07:50 Creatinine 0.8 mg/dL (0.7-1.3) 09/15/16 07:50 Est GFR ( Amer) TNP 09/15/16 07:50 Est GFR (Non-Af Amer) TNP 09/15/16 07:50 BUN/Creatinine Ratio 22.5 09/15/16 07:50 Glucose 243 mg/dL (70-105) H 09/15/16 07:50 POC Glucose 181 MG/DL (70 - 105) H 09/27/16 05:27 Hemoglobin A1c % 12.2 % (4.0-6.0) H 09/12/16 18:30 Calcium 10.0 mg/dL (8.6-10.3) 09/15/16 07:50 - Physical Exam Vitals and I&O: Vital Signs Temp 98.2 F 09/27/16 06:17 Pulse 67 09/27/16 09:24 Resp 20 09/27/16 08:00 BP 122/72 09/27/16 09:24 Pulse Ox 93 09/27/16 07:56 Intake & Output 09/26/16 09/27/16 09/27/16 18:59 06:59 18:59 Intake Total 1300 120 Balance 1300 120 Intake: Oral 1300 120 Other: # Voids 3 3 # Bowel Movements 1 Stool Characteristics Formed Active Medications: Current Medications Acetaminophen (Tylenol) 650 mg PO Q6HR PRN PRN Reason: mild pain Stop: 11/11/16 13:30 Acetaminophen/Hydrocodone Bitart ([place] 10 Mg/325 Mg) 1 tab PO Q6H PRN PRN Reason: Pain (Moderate-Severe) Stop: 11/11/16 13:30 Al Hydrox/Mg Hydrox/Simethicone (Maalox) 30 ml PO Q6H PRN PRN Reason: GI DISTRESS Stop: 11/11/16 13:43 Albuterol/Ipratropium (Duoneb Neb) 3 ml HHN Q8HRT [facility] Stop: 11/11/16 14:59 Last Admin: 09/27/16 07:56 Dose: 3 ml Albuterol/Ipratropium (Duoneb Neb) 3 ml HHN Q2H PRN PRN Reason: Wheezing Stop: 11/13/16 16:02 Last Admin: 09/14/16 20:24 Dose: 3 ml Aspirin (Ecotrin) 81 mg PO DAILY [facility] Stop: 11/12/16 08:59 Last Admin: 09/27/16 09:20 Dose: 81 mg Carisoprodol (Soma) 350 mg PO Q8HR PRN PRN Reason: severe muscle spasms Stop: 11/14/16 11:10 Last Admin: 09/16/16 10:30 Dose: 350 mg Carvedilol (Coreg) 3.125 mg PO BID [facility] Stop: 11/11/16 16:59 Last Admin: 09/27/16 09:23 Dose: 3.125 mg Citalopram Hydrobromide (Celexa) 30 mg PO DAILY [facility] PRN Reason: Protocol Stop: 11/12/16 08:59 Last Admin: 09/27/16 09:21 Dose: 30 mg Docusate Sodium (Colace) 500 mg PO BID [facility] Stop: 11/12/16 09:44 Last Admin: 09/27/16 09:20 Dose: 500 mg Furosemide (Lasix) 40 mg PO BID [facility] Stop: 11/11/16 16:59 Last Admin: 09/27/16 09:23 Dose: 40 mg Hydroxyzine Pamoate (Vistaril) 25 mg PO Q4HR PRN; Protocol PRN Reason: Anxiety Stop: 11/13/16 13:36 Insulin Aspart (Novolog Insulin Sliding Scale) 0 units SUBQ ACHS [facility] PRN Reason: Protocol Stop: 11/11/16 16:29 Last Admin: 09/27/16 06:31 Dose: Not Given Insulin Detemir (Levemir Insulin) 40 units SUBQ QDAC [facility] Stop: 11/12/16 07:29 Last Admin: 09/27/16 06:32 Dose: 40 units Insulin Detemir (Levemir Insulin) 30 units SUBQ QDIPM [facility] Stop: 11/11/16 17:44 Last Admin: 09/26/16 17:05 Dose: 30 unit Levothyroxine Sodium (Synthroid) 0.1 mg PO QDAC [facility] Stop: 11/12/16 07:29 Last Admin: 09/27/16 06:30 Dose: 0.1 mg Lorazepam (Ativan) 1 mg IVP Q4H PRN; Protocol PRN Reason: Anxiety/Agitation Stop: 11/11/16 13:43 Magnesium Hydroxide (Milk Of Magnesia) 30 ml PO BID PRN PRN Reason: Constipation Stop: 11/11/16 18:44 Last Admin: 09/19/16 17:22 Dose: 30 ml Metformin HCl (Glucophage) 850 mg PO BIDWM [facility] Stop: 11/17/16 17:59 Last Admin: 09/27/16 09:19 Dose: 850 mg Nateglinide (Starlix) 120 mg PO AC [facility] Stop: 11/17/16 11:29 Last Admin: 09/27/16 06:34 Dose: 120 mg Ondansetron HCl (Zofran Odt) 4 mg PO TID PRN PRN Reason: Nausea / Vomiting Stop: 11/11/16 13:30 Pantoprazole Sodium (Protonix) 40 mg PO DAILY [facility] Stop: 11/12/16 08:59 Last Admin: 09/27/16 09:20 Dose: 40 mg Potassium Chloride (Potassium Chloride Elixir) 16 meq PO DAILY [facility] Stop: 11/12/16 08:59 Last Admin: 09/27/16 09:24 Dose: 16 meq Risperidone (Risperdal) 2 mg PO DAILY [facility] Stop: 11/18/16 11:59 Last Admin: 09/27/16 09:20 Dose: 2 mg Simvastatin (Zocor) 40 mg PO HS [facility] PRN Reason: Protocol Stop: 11/11/16 20:59 Last Admin: 09/26/16 20:29 Dose: 40 mg Spironolactone (Aldactone) 25 mg PO DAILY [facility] Stop: 11/12/16 08:59 Last Admin: 09/27/16 09:24 Dose: 25 mg Valsartan (Diovan) 160 mg PO DAILY [facility] Stop: 11/12/16 08:59 Last Admin: 09/27/16 09:22 Dose: 160 mg Zolpidem Tartrate (Ambien) 5 mg PO HS PRN PRN Reason: Insomnia Stop: 11/11/16 13:43 General: no acute distress, other (obese) HEENT: atraumatic, normocephalic, PERRLA, EOMI, moist mucous membrane Neck: supple Cardiovascular: S1S2, regular Lungs: clear to auscultation bilaterally, clear to percussion Abdomen: soft, no tender, no distended Extremities: no cyanosis, no clubbing, no edema Neurological: awake, alert, oriented Skin: other (small wound healing in left 2nd toe.) Infectious Disease Assmt/Plan - Problem List Patient Problems: All Active Problems CHF (Acute) DEPRESION (Acute) DM (Acute) HTN (Acute) MORBID OBESITY (Acute) SI (Acute) - Assessment Assessment: Impression: 1. Cellulitis of left foot, 2nd toe, with superficial small wound. cellulitis has improved. 2. Psychosis. 3. MRSA colonization. - Plan Plan: Continue wound care.
--- NOTE | 2016-09-27 21:39 | Progress Notes ---
SUBJECTIVE: Chart reviewed and the patient interviewed. Also discussed the patient's condition with the staff and reviewed records and labs. The patient is still severely depressed and he is still withdrawn and feeling hopeless and helpless. The patient also is interacting minimally with others and he stays in bed most of the time. The patient also is having difficulty with his mood. He also is still having trouble helping with his ADLs because of his weight. The patient also is still unable to provide any safe plan for self-care and considered to be care. Otherwise, the patient continues to comply with taking his medications with no side effects of medications. ASSESSMENT: The patient is still depressed and needs placement. TREATMENT PLAN: Continue monitoring his behavior and medications and continue to work on discharge plans and placement issues. I discussed yesterday different options for placement with family preservation caseworker and she is working on placement issue. JOB# [id number]
[2016-09-27] MEDS: Albuterol/Ipratropium Neb 3 ML AERS HHN PRN (21:46)
[2016-09-28] MEDS: Levothyroxine 0.1 Mg Tab PO SCH (06:00)
[2016-09-28] MEDS: INSULIN ASPART SLIDING SCALE 100 UNITS/ML UNIT SUBQ SCH ×4 (06:35→21:06)
[2016-09-28] MEDS: Insulin Detemir 100 units/mL 10mL Vial SUBQ SCH ×2 (06:35→18:31)
[2016-09-28] MEDS: Albuterol/Ipratropium Neb 3 ML AERS HHN SCH ×3 (07:35→23:07)
[2016-09-28 10:32] LABS: % LYMPHOCYTES 10.6 % (20.0-50.0); % MONOCYTES 4.8 % (2.0-10.0); % NEUTROPHILS 83.6 % (40.0-80.0); HEMATOCRIT 44.8 % (39.0-49.0); HEMOGLOBIN 14.8 gm/dL (12.6-17.4); MEAN CELL VOLUME 83.5 fl (80-99); MEAN CORPUSCULAR HEMOGLOBIN 27.7 pg (27.0-31.0); MEAN CORPUSCULAR HGB CONC 33.1 pg (28.0-36.0); MEAN PLATELET VOLUME 7.4 fl; NEUTROPHILE ABSOLUTE 7.3 Th/cmm (1.8-8.0); RED BLOOD COUNT 5.36 Mil/cmm (3.80-5.80); RED CELL DISTRIBUTION WIDTH 12.4 % (11.5-20.0); WHITE BLOOD COUNT 8.7 Th/cmm (4.8-10.8)
[2016-09-28] MEDS: Pantoprazole 40 mg EC Tab PO SCH (10:33)
[2016-09-28 10:34] LABS: PLATELET COUNT 259 Th/cmm (150-400)
[2016-09-28 10:51] LABS: ANION GAP 6.9 (7.0-16.0); BUN - UREA NITROGEN 15 mg/dL (7-25); BUN/CREATININE RATIO 18.8; CALCIUM SERUM 9.8 mg/dL (8.6-10.3); CARBON DIOXIDE 31.2 mEq/L (21.0-31.0); CHLORIDE 94 mEq/L (98-107); CREATININE - SERUM 0.8 mg/dL (0.7-1.3); GLUCOSE 247 mg/dL (70-105); POTASSIUM SERUM 4.1 mEq/L (3.5-5.1); SODIUM SERUM 128 mEq/L (136-145)
[2016-09-28] MEDS: Potassium Chloride Elixir 20 mEq /15 mL UDC PO SCH (10:59)
--- NOTE | 2016-09-28 13:31 | Infectious Disease Prog Note ---
Infectious Disease Subjective - Review of Systems Service Date: 09/28/16 Subjective: no new change. Infectious Disease Objective - Results Result Diagrams: 09/28/16 10:19 09/28/16 10:19 Recent Labs: Laboratory Last Values WBC 8.7 Th/cmm (4.8-10.8) 09/28/16 10:19 RBC 5.36 Mil/cmm (3.80-5.80) 09/28/16 10:19 Hgb 14.8 gm/dL (12.6-17.4) 09/28/16 10:19 Hct 44.8 % (39.0-49.0) 09/28/16 10:19 MCV 83.5 fl (80-99) 09/28/16 10:19 MCH 27.7 pg (27.0-31.0) 09/28/16 10:19 MCHC Differential 33.1 pg (28.0-36.0) 09/28/16 10:19 RDW 12.4 % (11.5-20.0) 09/28/16 10:19 Plt Count 259 Th/cmm (150-400) D 09/28/16 10:19 MPV 7.4 fl 09/28/16 10:19 Neutrophils % 83.6 % (40.0-80.0) H 09/28/16 10:19 Lymphocytes % 10.6 % (20.0-50.0) L 09/28/16 10:19 Monocytes % 4.8 % (2.0-10.0) 09/28/16 10:19 Eosinophils % 1.0 % (0.0-5.0) 09/28/16 10:19 Basophils % 0.0 % (0.0-2.0) 09/28/16 10:19 Sodium 128 mEq/L (136-145) L 09/28/16 10:19 Potassium 4.1 mEq/L (3.5-5.1) 09/28/16 10:19 Chloride 94 mEq/L (98-107) L 09/28/16 10:19 Carbon Dioxide 31.2 mEq/L (21.0-31.0) H 09/28/16 10:19 Anion Gap 6.9 (7.0-16.0) L 09/28/16 10:19 BUN 15 mg/dL (7-25) 09/28/16 10:19 Creatinine 0.8 mg/dL (0.7-1.3) 09/28/16 10:19 Est GFR ( Amer) TNP 09/28/16 10:19 Est GFR (Non-Af Amer) TNP 09/28/16 10:19 BUN/Creatinine Ratio 18.8 09/28/16 10:19 Glucose 247 mg/dL (70-105) H 09/28/16 10:19 POC Glucose 201 MG/DL (70 - 105) H 09/28/16 05:31 Hemoglobin A1c % 12.2 % (4.0-6.0) H 09/12/16 18:30 Calcium 9.8 mg/dL (8.6-10.3) 09/28/16 10:19 Magnesium 1.6 mg/dL (1.9-2.7) L 09/28/16 10:19 - Physical Exam Vitals and I&O: Vital Signs Temp 98 F 09/28/16 06:52 Pulse 84 09/28/16 10:37 Resp 20 09/28/16 08:00 BP 132/80 09/28/16 10:37 Pulse Ox 92 09/28/16 07:35 Intake & Output 09/27/16 09/28/16 09/28/16 18:59 06:59 18:59 Intake Total 1000 Balance 1000 Intake: Oral 1000 Other: # Voids 4 # Bowel Movements 1 Active Medications: Current Medications Acetaminophen (Tylenol) 650 mg PO Q6HR PRN PRN Reason: mild pain Stop: 11/11/16 13:30 Acetaminophen/Hydrocodone Bitart ([place] 10 Mg/325 Mg) 1 tab PO Q6H PRN PRN Reason: Pain (Moderate-Severe) Stop: 11/11/16 13:30 Al Hydrox/Mg Hydrox/Simethicone (Maalox) 30 ml PO Q6H PRN PRN Reason: GI DISTRESS Stop: 11/11/16 13:43 Albuterol/Ipratropium (Duoneb Neb) 3 ml HHN Q8HRT [facility] Stop: 11/11/16 14:59 Last Admin: 09/28/16 07:35 Dose: 3 ml Albuterol/Ipratropium (Duoneb Neb) 3 ml HHN Q2H PRN PRN Reason: Wheezing Stop: 11/13/16 16:02 Last Admin: 09/27/16 21:46 Dose: 3 ml Aspirin (Ecotrin) 81 mg PO DAILY [facility] Stop: 11/12/16 08:59 Last Admin: 09/28/16 10:34 Dose: 81 mg Carisoprodol (Soma) 350 mg PO Q8HR PRN PRN Reason: severe muscle spasms Stop: 11/14/16 11:10 Last Admin: 09/16/16 10:30 Dose: 350 mg Carvedilol (Coreg) 3.125 mg PO BID [facility] Stop: 11/11/16 16:59 Last Admin: 09/28/16 10:36 Dose: 3.125 mg Citalopram Hydrobromide (Celexa) 30 mg PO DAILY [facility] PRN Reason: Protocol Stop: 11/12/16 08:59 Last Admin: 09/28/16 10:34 Dose: 30 mg Docusate Sodium (Colace) 500 mg PO BID [facility] Stop: 11/12/16 09:44 Last Admin: 09/28/16 10:32 Dose: 500 mg Furosemide (Lasix) 40 mg PO BID [facility] Stop: 11/11/16 16:59 Last Admin: 09/28/16 10:35 Dose: 40 mg Hydroxyzine Pamoate (Vistaril) 25 mg PO Q4HR PRN; Protocol PRN Reason: Anxiety Stop: 11/13/16 13:36 Insulin Aspart (Novolog Insulin Sliding Scale) 0 units SUBQ ACHS [facility] PRN Reason: Protocol Stop: 11/11/16 16:29 Last Admin: 09/28/16 11:31 Dose: 2 units Insulin Detemir (Levemir Insulin) 40 units SUBQ QDAC [facility] Stop: 11/12/16 07:29 Last Admin: 09/28/16 06:35 Dose: 40 units Insulin Detemir (Levemir Insulin) 30 units SUBQ QDIPM [facility] Stop: 11/11/16 17:44 Last Admin: 09/27/16 18:32 Dose: 30 unit Levothyroxine Sodium (Synthroid) 0.1 mg PO QDAC [facility] Stop: 11/12/16 07:29 Last Admin: 09/28/16 06:00 Dose: 0.1 mg Lorazepam (Ativan) 1 mg IVP Q4H PRN; Protocol PRN Reason: Anxiety/Agitation Stop: 11/11/16 13:43 Magnesium Hydroxide (Milk Of Magnesia) 30 ml PO BID PRN PRN Reason: Constipation Stop: 11/11/16 18:44 Last Admin: 09/19/16 17:22 Dose: 30 ml Metformin HCl (Glucophage) 850 mg PO BIDWM [facility] Stop: 11/17/16 17:59 Last Admin: 09/28/16 10:27 Dose: Not Given Nateglinide (Starlix) 120 mg PO AC [facility] Stop: 11/17/16 11:29 Last Admin: 09/28/16 13:19 Dose: Not Given Ondansetron HCl (Zofran Odt) 4 mg PO TID PRN PRN Reason: Nausea / Vomiting Stop: 11/11/16 13:30 Pantoprazole Sodium (Protonix) 40 mg PO DAILY [facility] Stop: 11/12/16 08:59 Last Admin: 09/28/16 10:33 Dose: 40 mg Potassium Chloride (Potassium Chloride Elixir) 16 meq PO DAILY [facility] Stop: 11/12/16 08:59 Last Admin: 09/28/16 10:59 Dose: 16 meq Risperidone (Risperdal) 2 mg PO DAILY [facility] Stop: 11/18/16 11:59 Last Admin: 09/28/16 10:33 Dose: 2 mg Simvastatin (Zocor) 40 mg PO HS [facility] PRN Reason: Protocol Stop: 11/11/16 20:59 Last Admin: 09/27/16 20:21 Dose: 40 mg Spironolactone (Aldactone) 25 mg PO DAILY [facility] Stop: 11/12/16 08:59 Last Admin: 09/28/16 10:35 Dose: 25 mg Valsartan (Diovan) 160 mg PO DAILY [facility] Stop: 11/12/16 08:59 Last Admin: 09/28/16 10:37 Dose: 160 mg Zolpidem Tartrate (Ambien) 5 mg PO HS PRN PRN Reason: Insomnia Stop: 11/11/16 13:43 General: no acute distress, well developed, well nourished HEENT: atraumatic, normocephalic, PERRLA, EOMI Neck: supple, no thyromegaly, no lymphadenopathy Cardiovascular: S1S2, regular Lungs: clear to auscultation bilaterally, clear to percussion Abdomen: soft, no tender, no distended Extremities: no cyanosis, no clubbing, no edema Neurological: awake, alert Infectious Disease Assmt/Plan - Problem List Patient Problems: All Active Problems CHF (Acute) DEPRESION (Acute) DM (Acute) HTN (Acute) MORBID OBESITY (Acute) SI (Acute) - Assessment Assessment: Impression: 1. Cellulitis of left foot, 2nd toe, with superficial small wound. cellulitis has improved. 2. Psychosis. 3. MRSA colonization. - Plan Plan: Continue wound care.
--- NOTE | 2016-09-28 23:15 | Progress Notes ---
SUBJECTIVE: Chart reviewed and the patient interviewed. Also discussed the patient's condition with the staff and reviewed records and labs. The patient is still severely depressed and he is still withdrawn. The patient also is interacting minimally with others. Also, is still feeling hopeless. The patient also does not leave his room and stays in his bed most of the time because of his depression and his physical inability. On the other hand, the patient is compliant with taking his medications with no side effects of medications. 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 ASSESSMENT: The patient is still considered to be severely depressed and gravely disabled. TREATMENT PLAN: Continue monitoring his behavior closely and we will continue to follow up ____ find placement for the patient. JOB# [id number]
[2016-09-29] MEDS: INSULIN ASPART SLIDING SCALE 100 UNITS/ML UNIT SUBQ SCH ×4 (06:48→20:40)
[2016-09-29] MEDS: Levothyroxine 0.1 Mg Tab PO SCH (06:52)
[2016-09-29] MEDS: Insulin Detemir 100 units/mL 10mL Vial SUBQ SCH ×2 (06:58→18:14)
[2016-09-29] MEDS: Albuterol/Ipratropium Neb 3 ML AERS HHN SCH ×2 (07:50→14:43)
[2016-09-29] MEDS: Pantoprazole 40 mg EC Tab PO SCH (08:58)
[2016-09-29] MEDS: Potassium Chloride Elixir 20 mEq /15 mL UDC PO SCH (08:59)
--- NOTE | 2016-09-29 11:11 | Infectious Disease Prog Note ---
Infectious Disease Subjective - Review of Systems Service Date: 09/29/16 Subjective: no new change. Infectious Disease Objective - Results Result Diagrams: 09/28/16 10:19 09/28/16 10:19 Recent Labs: Laboratory Last Values WBC 8.7 Th/cmm (4.8-10.8) 09/28/16 10:19 RBC 5.36 Mil/cmm (3.80-5.80) 09/28/16 10:19 Hgb 14.8 gm/dL (12.6-17.4) 09/28/16 10:19 Hct 44.8 % (39.0-49.0) 09/28/16 10:19 MCV 83.5 fl (80-99) 09/28/16 10:19 MCH 27.7 pg (27.0-31.0) 09/28/16 10:19 MCHC Differential 33.1 pg (28.0-36.0) 09/28/16 10:19 RDW 12.4 % (11.5-20.0) 09/28/16 10:19 Plt Count 259 Th/cmm (150-400) D 09/28/16 10:19 MPV 7.4 fl 09/28/16 10:19 Neutrophils % 83.6 % (40.0-80.0) H 09/28/16 10:19 Lymphocytes % 10.6 % (20.0-50.0) L 09/28/16 10:19 Monocytes % 4.8 % (2.0-10.0) 09/28/16 10:19 Eosinophils % 1.0 % (0.0-5.0) 09/28/16 10:19 Basophils % 0.0 % (0.0-2.0) 09/28/16 10:19 Sodium 128 mEq/L (136-145) L 09/28/16 10:19 Potassium 4.1 mEq/L (3.5-5.1) 09/28/16 10:19 Chloride 94 mEq/L (98-107) L 09/28/16 10:19 Carbon Dioxide 31.2 mEq/L (21.0-31.0) H 09/28/16 10:19 Anion Gap 6.9 (7.0-16.0) L 09/28/16 10:19 BUN 15 mg/dL (7-25) 09/28/16 10:19 Creatinine 0.8 mg/dL (0.7-1.3) 09/28/16 10:19 Est GFR ( Amer) TNP 09/28/16 10:19 Est GFR (Non-Af Amer) TNP 09/28/16 10:19 BUN/Creatinine Ratio 18.8 09/28/16 10:19 Glucose 247 mg/dL (70-105) H 09/28/16 10:19 POC Glucose 182 MG/DL (70 - 105) H 09/29/16 06:17 Hemoglobin A1c % 12.2 % (4.0-6.0) H 09/12/16 18:30 Calcium 9.8 mg/dL (8.6-10.3) 09/28/16 10:19 Magnesium 1.6 mg/dL (1.9-2.7) L 09/28/16 10:19 - Physical Exam Vitals and I&O: Vital Signs Temp 98.0 F 09/28/16 14:00 Pulse 87 09/29/16 08:58 Resp 18 09/29/16 08:00 BP 121/61 09/29/16 08:58 Pulse Ox 92 09/29/16 07:54 Intake & Output 09/28/16 09/29/16 09/29/16 18:59 06:59 18:59 Intake Total 1200 Balance 1200 Intake: Oral 1200 Other: # Voids 3 # Bowel Movements 0 Active Medications: Current Medications Acetaminophen (Tylenol) 650 mg PO Q6HR PRN PRN Reason: mild pain Stop: 11/11/16 13:30 Acetaminophen/Hydrocodone Bitart ([place] 10 Mg/325 Mg) 1 tab PO Q6H PRN PRN Reason: Pain (Moderate-Severe) Stop: 11/11/16 13:30 Al Hydrox/Mg Hydrox/Simethicone (Maalox) 30 ml PO Q6H PRN PRN Reason: GI DISTRESS Stop: 11/11/16 13:43 Albuterol/Ipratropium (Duoneb Neb) 3 ml HHN Q8HRT [facility] Stop: 11/11/16 14:59 Last Admin: 09/29/16 07:50 Dose: 3 ml Albuterol/Ipratropium (Duoneb Neb) 3 ml HHN Q2H PRN PRN Reason: Wheezing Stop: 11/13/16 16:02 Last Admin: 09/27/16 21:46 Dose: 3 ml Aspirin (Ecotrin) 81 mg PO DAILY [facility] Stop: 11/12/16 08:59 Last Admin: 09/29/16 08:56 Dose: 81 mg Carisoprodol (Soma) 350 mg PO Q8HR PRN PRN Reason: severe muscle spasms Stop: 11/14/16 11:10 Last Admin: 09/16/16 10:30 Dose: 350 mg Carvedilol (Coreg) 3.125 mg PO BID [facility] Stop: 11/11/16 16:59 Last Admin: 09/29/16 08:57 Dose: 3.125 mg Citalopram Hydrobromide (Celexa) 40 mg PO DAILY [facility] PRN Reason: Protocol Stop: 11/12/16 08:59 Docusate Sodium (Colace) 500 mg PO BID [facility] Stop: 11/12/16 09:44 Last Admin: 09/29/16 08:56 Dose: 500 mg Furosemide (Lasix) 40 mg PO BID [facility] Stop: 11/11/16 16:59 Last Admin: 09/29/16 08:55 Dose: 40 mg Hydroxyzine Pamoate (Vistaril) 25 mg PO Q4HR PRN; Protocol PRN Reason: Anxiety Stop: 11/13/16 13:36 Insulin Aspart (Novolog Insulin Sliding Scale) 0 units SUBQ ACHS [facility] PRN Reason: Protocol Stop: 11/11/16 16:29 Last Admin: 09/29/16 06:48 Dose: Not Given Insulin Detemir (Levemir Insulin) 40 units SUBQ QDAC [facility] Stop: 11/12/16 07:29 Last Admin: 09/29/16 06:58 Dose: 40 units Insulin Detemir (Levemir Insulin) 30 units SUBQ QDIPM [facility] Stop: 11/11/16 17:44 Last Admin: 09/28/16 18:31 Dose: 30 unit Levothyroxine Sodium (Synthroid) 0.1 mg PO QDAC [facility] Stop: 11/12/16 07:29 Last Admin: 09/29/16 06:52 Dose: 0.1 mg Lorazepam (Ativan) 1 mg IVP Q4H PRN; Protocol PRN Reason: Anxiety/Agitation Stop: 11/11/16 13:43 Magnesium Hydroxide (Milk Of Magnesia) 30 ml PO BID PRN PRN Reason: Constipation Stop: 11/11/16 18:44 Last Admin: 09/19/16 17:22 Dose: 30 ml Metformin HCl (Glucophage) 850 mg PO BIDWM [facility] Stop: 11/17/16 17:59 Last Admin: 09/29/16 08:56 Dose: 850 mg Nateglinide (Starlix) 120 mg PO AC [facility] Stop: 11/17/16 11:29 Last Admin: 09/29/16 06:52 Dose: 120 mg Ondansetron HCl (Zofran Odt) 4 mg PO TID PRN PRN Reason: Nausea / Vomiting Stop: 11/11/16 13:30 Pantoprazole Sodium (Protonix) 40 mg PO DAILY [facility] Stop: 11/12/16 08:59 Last Admin: 09/29/16 08:58 Dose: 40 mg Potassium Chloride (Potassium Chloride Elixir) 16 meq PO DAILY [facility] Stop: 11/12/16 08:59 Last Admin: 09/29/16 08:59 Dose: 16 meq Risperidone (Risperdal) 2 mg PO DAILY [facility] Stop: 11/18/16 11:59 Last Admin: 09/29/16 08:57 Dose: 2 mg Simvastatin (Zocor) 40 mg PO HS [facility] PRN Reason: Protocol Stop: 11/11/16 20:59 Last Admin: 09/28/16 21:05 Dose: 40 mg Spironolactone (Aldactone) 25 mg PO DAILY [facility] Stop: 11/12/16 08:59 Last Admin: 09/29/16 08:58 Dose: 25 mg Valsartan (Diovan) 160 mg PO DAILY [facility] Stop: 11/12/16 08:59 Last Admin: 09/29/16 08:57 Dose: 160 mg Zolpidem Tartrate (Ambien) 5 mg PO HS PRN PRN Reason: Insomnia Stop: 11/11/16 13:43 General: no acute distress, other (obese) HEENT: atraumatic, normocephalic, PERRLA, EOMI Neck: supple Cardiovascular: S1S2, regular Lungs: clear to auscultation bilaterally, clear to percussion Abdomen: soft, no tender, no distended Extremities: no cyanosis, no clubbing, no edema Neurological: awake, alert, oriented Skin: intact Infectious Disease Assmt/Plan - Problem List Patient Problems: All Active Problems CHF (Acute) DEPRESION (Acute) DM (Acute) HTN (Acute) MORBID OBESITY (Acute) SI (Acute) - Assessment Assessment: Impression: 1. Cellulitis of left foot, 2nd toe, with superficial small wound. cellulitis has improved. 2. Psychosis. 3. MRSA colonization. - Plan Plan: Continue wound care.
--- NOTE | 2016-09-29 19:35 | Progress Notes ---
SUBJECTIVE: Chart reviewed and the patient interviewed. Also discussed the patient's condition with the staff and reviewed records and labs. The patient is still depressed and anxious and withdrawn. The patient also is still in angry and in irritable mood. The patient also wants to be left alone at times. He is still feeling hopeless and helpless and his level of depression increased, especially with his physical inability and that no place accepting him and have no place to go. He also is stays by himself and interacting minimally with others and does not want to leave his room. During interview, the patient is depressed with low tone and rate of speech and mumbles. ASSESSMENT: The patient is still depressed and psychotic. TREATMENT PLAN: We will continue monitoring his behavior and his condition closely. Also, we will increase Celexa to 20 mg every day and we will continue Risperdal 2 mg every day. Also, continue to work with welfare case worker in regard to discharge plans and placement issue. JOB# [id number]
[2016-09-30] MEDS: Albuterol/Ipratropium Neb 3 ML AERS HHN SCH ×4 (02:32→23:37)
[2016-09-30] MEDS: INSULIN ASPART SLIDING SCALE 100 UNITS/ML UNIT SUBQ SCH ×4 (06:44→20:53)
[2016-09-30] MEDS: Levothyroxine 0.1 Mg Tab PO SCH (06:52)
[2016-09-30] MEDS: Insulin Detemir 100 units/mL 10mL Vial SUBQ SCH ×2 (06:53→17:39)
[2016-09-30] MEDS: Potassium Chloride Elixir 20 mEq /15 mL UDC PO SCH (08:19)
[2016-09-30] MEDS: Pantoprazole 40 mg EC Tab PO SCH (08:19)
--- NOTE | 2016-09-30 23:18 | Infectious Disease Prog Note ---
Infectious Disease Subjective - Review of Systems Service Date: 09/30/16 Subjective: no new change. Infectious Disease Objective - Results Result Diagrams: 09/28/16 10:19 09/28/16 10:19 Recent Labs: Laboratory Last Values WBC 8.7 Th/cmm (4.8-10.8) 09/28/16 10:19 RBC 5.36 Mil/cmm (3.80-5.80) 09/28/16 10:19 Hgb 14.8 gm/dL (12.6-17.4) 09/28/16 10:19 Hct 44.8 % (39.0-49.0) 09/28/16 10:19 MCV 83.5 fl (80-99) 09/28/16 10:19 MCH 27.7 pg (27.0-31.0) 09/28/16 10:19 MCHC Differential 33.1 pg (28.0-36.0) 09/28/16 10:19 RDW 12.4 % (11.5-20.0) 09/28/16 10:19 Plt Count 259 Th/cmm (150-400) D 09/28/16 10:19 MPV 7.4 fl 09/28/16 10:19 Neutrophils % 83.6 % (40.0-80.0) H 09/28/16 10:19 Lymphocytes % 10.6 % (20.0-50.0) L 09/28/16 10:19 Monocytes % 4.8 % (2.0-10.0) 09/28/16 10:19 Eosinophils % 1.0 % (0.0-5.0) 09/28/16 10:19 Basophils % 0.0 % (0.0-2.0) 09/28/16 10:19 Sodium 128 mEq/L (136-145) L 09/28/16 10:19 Potassium 4.1 mEq/L (3.5-5.1) 09/28/16 10:19 Chloride 94 mEq/L (98-107) L 09/28/16 10:19 Carbon Dioxide 31.2 mEq/L (21.0-31.0) H 09/28/16 10:19 Anion Gap 6.9 (7.0-16.0) L 09/28/16 10:19 BUN 15 mg/dL (7-25) 09/28/16 10:19 Creatinine 0.8 mg/dL (0.7-1.3) 09/28/16 10:19 Est GFR ( Amer) TNP 09/28/16 10:19 Est GFR (Non-Af Amer) TNP 09/28/16 10:19 BUN/Creatinine Ratio 18.8 09/28/16 10:19 Glucose 247 mg/dL (70-105) H 09/28/16 10:19 POC Glucose 240 MG/DL (70 - 105) H 09/30/16 20:28 Hemoglobin A1c % 12.2 % (4.0-6.0) H 09/12/16 18:30 Calcium 9.8 mg/dL (8.6-10.3) 09/28/16 10:19 Magnesium 1.6 mg/dL (1.9-2.7) L 09/28/16 10:19 - Physical Exam Vitals and I&O: Vital Signs Temp 97.6 F 09/30/16 20:33 Pulse 60 09/30/16 20:33 Resp 19 09/30/16 20:33 BP 103/67 09/30/16 20:33 Pulse Ox 96 09/30/16 20:33 Intake & Output 09/30/16 09/30/16 10/01/16 06:59 18:59 06:59 Intake Total 480 1200 Output Total 450 Balance 30 1200 Intake: Oral 480 1200 Output: Urine 450 Other: # Voids 4 Stool Characteristics Formed Active Medications: Current Medications Acetaminophen (Tylenol) 650 mg PO Q6HR PRN PRN Reason: mild pain Stop: 11/11/16 13:30 Acetaminophen/Hydrocodone Bitart ([place] 10 Mg/325 Mg) 1 tab PO Q6H PRN PRN Reason: Pain (Moderate-Severe) Stop: 11/11/16 13:30 Al Hydrox/Mg Hydrox/Simethicone (Maalox) 30 ml PO Q6H PRN PRN Reason: GI DISTRESS Stop: 11/11/16 13:43 Albuterol/Ipratropium (Duoneb Neb) 3 ml HHN Q8HRT [facility] Stop: 11/11/16 14:59 Last Admin: 09/30/16 15:32 Dose: 3 ml Albuterol/Ipratropium (Duoneb Neb) 3 ml HHN Q2H PRN PRN Reason: Wheezing Stop: 11/13/16 16:02 Last Admin: 09/27/16 21:46 Dose: 3 ml Aspirin (Ecotrin) 81 mg PO DAILY [facility] Stop: 11/12/16 08:59 Last Admin: 09/30/16 08:20 Dose: 81 mg Carisoprodol (Soma) 350 mg PO Q8HR PRN PRN Reason: severe muscle spasms Stop: 11/14/16 11:10 Last Admin: 09/30/16 22:49 Dose: 350 mg Carvedilol (Coreg) 3.125 mg PO BID [facility] Stop: 11/11/16 16:59 Last Admin: 09/30/16 16:38 Dose: 3.125 mg Citalopram Hydrobromide (Celexa) 40 mg PO DAILY [facility] PRN Reason: Protocol Stop: 11/12/16 08:59 Last Admin: 09/30/16 08:19 Dose: 40 mg Docusate Sodium (Colace) 500 mg PO BID [facility] Stop: 11/12/16 09:44 Last Admin: 09/30/16 16:53 Dose: 500 mg Furosemide (Lasix) 40 mg PO BID [facility] Stop: 11/11/16 16:59 Last Admin: 09/30/16 16:38 Dose: 40 mg Hydroxyzine Pamoate (Vistaril) 25 mg PO Q4HR PRN; Protocol PRN Reason: Anxiety Stop: 11/13/16 13:36 Insulin Aspart (Novolog Insulin Sliding Scale) 0 units SUBQ ACHS [facility] PRN Reason: Protocol Stop: 11/11/16 16:29 Last Admin: 09/30/16 20:53 Dose: 2 units Insulin Detemir (Levemir Insulin) 40 units SUBQ QDAC [facility] Stop: 11/12/16 07:29 Last Admin: 09/30/16 06:53 Dose: 40 units Insulin Detemir (Levemir Insulin) 30 units SUBQ QDIPM [facility] Stop: 11/11/16 17:44 Last Admin: 09/30/16 17:39 Dose: 30 unit Levothyroxine Sodium (Synthroid) 0.1 mg PO QDAC [facility] Stop: 11/12/16 07:29 Last Admin: 09/30/16 06:52 Dose: 0.1 mg Lorazepam (Ativan) 1 mg IVP Q4H PRN; Protocol PRN Reason: Anxiety/Agitation Stop: 11/11/16 13:43 Magnesium Hydroxide (Milk Of Magnesia) 30 ml PO BID PRN PRN Reason: Constipation Stop: 11/11/16 18:44 Last Admin: 09/19/16 17:22 Dose: 30 ml Metformin HCl (Glucophage) 850 mg PO BIDWM [facility] Stop: 11/17/16 17:59 Last Admin: 09/30/16 18:30 Dose: 850 mg Nateglinide (Starlix) 120 mg PO AC [facility] Stop: 11/17/16 11:29 Last Admin: 09/30/16 16:35 Dose: 120 mg Ondansetron HCl (Zofran Odt) 4 mg PO TID PRN PRN Reason: Nausea / Vomiting Stop: 11/11/16 13:30 Pantoprazole Sodium (Protonix) 40 mg PO DAILY [facility] Stop: 11/12/16 08:59 Last Admin: 09/30/16 08:19 Dose: 40 mg Potassium Chloride (Potassium Chloride Elixir) 16 meq PO DAILY [facility] Stop: 11/12/16 08:59 Last Admin: 09/30/16 08:19 Dose: 16 meq Risperidone (Risperdal) 2 mg PO DAILY [facility] Stop: 11/18/16 11:59 Last Admin: 09/30/16 08:19 Dose: 2 mg Simvastatin (Zocor) 40 mg PO HS [facility] PRN Reason: Protocol Stop: 11/11/16 20:59 Last Admin: 09/30/16 20:46 Dose: 40 mg Spironolactone (Aldactone) 25 mg PO DAILY [facility] Stop: 11/12/16 08:59 Last Admin: 09/30/16 08:23 Dose: Not Given Valsartan (Diovan) 160 mg PO DAILY [facility] Stop: 11/12/16 08:59 Last Admin: 09/30/16 08:23 Dose: Not Given Zolpidem Tartrate (Ambien) 5 mg PO HS PRN PRN Reason: Insomnia Stop: 11/11/16 13:43 General: no acute distress, well developed, well nourished HEENT: atraumatic, normocephalic, PERRLA, EOMI Neck: supple, no thyromegaly Cardiovascular: S1S2, regular Lungs: clear to auscultation bilaterally, clear to percussion Abdomen: soft, no tender, no distended Extremities: no cyanosis, no clubbing, no edema Neurological: awake, alert, oriented Infectious Disease Assmt/Plan - Problem List Patient Problems: All Active Problems CHF (Acute) DEPRESION (Acute) DM (Acute) HTN (Acute) MORBID OBESITY (Acute) SI (Acute) - Assessment Assessment: Impression: 1. Cellulitis of left foot, 2nd toe, with superficial small wound. healed. cellulitis has improved. 2. Psychosis. 3. MRSA colonization. - Plan Plan: Continue same treatment.
--- NOTE | 2016-10-01 01:18 | Progress Notes ---
SUBJECTIVE: The patient was seen, chart was reviewed, and discussed with staff. The patient remains somewhat depressed, still withdrawn, not really amenable to interview, still noted to be hopeless appearing, depression, states that he is minimally interactive, states that he feels "terrible, no place to go." Grave disability, cannot utilize basic food, clothing, and senior living. Concerns for his ability to care for himself, medically very sick. ASSESSMENT: The patient is depressed, still with behavioral disturbances, yells at times, very withdrawn, recent dose increase is Celexa. PLAN: Continue to monitor. We are trying to target the patient's depressive symptoms and also help with placement at the same time. [facility]# [id number]
[2016-10-01] MEDS: INSULIN ASPART SLIDING SCALE 100 UNITS/ML UNIT SUBQ SCH ×4 (06:32→20:45)
[2016-10-01] MEDS: Levothyroxine 0.1 Mg Tab PO SCH (06:55)
[2016-10-01] MEDS: Insulin Detemir 100 units/mL 10mL Vial SUBQ SCH ×2 (06:56→17:34)
[2016-10-01] MEDS: Albuterol/Ipratropium Neb 3 ML AERS HHN SCH ×3 (07:31→22:00)
[2016-10-01] MEDS: Potassium Chloride Elixir 20 mEq /15 mL UDC PO SCH (08:46)
[2016-10-01] MEDS: Pantoprazole 40 mg EC Tab PO SCH (08:50)
[2016-10-01] MEDS: Magnesium Hydroxide (MOM) 30 mL UDC PO PRN (16:41)
--- NOTE | 2016-10-01 18:04 | Infectious Disease Prog Note ---
Infectious Disease Subjective - Review of Systems Service Date: 10/01/16 Subjective: no new change. Infectious Disease Objective - Results Result Diagrams: 09/28/16 10:19 09/28/16 10:19 Recent Labs: Laboratory Last Values WBC 8.7 Th/cmm (4.8-10.8) 09/28/16 10:19 RBC 5.36 Mil/cmm (3.80-5.80) 09/28/16 10:19 Hgb 14.8 gm/dL (12.6-17.4) 09/28/16 10:19 Hct 44.8 % (39.0-49.0) 09/28/16 10:19 MCV 83.5 fl (80-99) 09/28/16 10:19 MCH 27.7 pg (27.0-31.0) 09/28/16 10:19 MCHC Differential 33.1 pg (28.0-36.0) 09/28/16 10:19 RDW 12.4 % (11.5-20.0) 09/28/16 10:19 Plt Count 259 Th/cmm (150-400) D 09/28/16 10:19 MPV 7.4 fl 09/28/16 10:19 Neutrophils % 83.6 % (40.0-80.0) H 09/28/16 10:19 Lymphocytes % 10.6 % (20.0-50.0) L 09/28/16 10:19 Monocytes % 4.8 % (2.0-10.0) 09/28/16 10:19 Eosinophils % 1.0 % (0.0-5.0) 09/28/16 10:19 Basophils % 0.0 % (0.0-2.0) 09/28/16 10:19 Sodium 128 mEq/L (136-145) L 09/28/16 10:19 Potassium 4.1 mEq/L (3.5-5.1) 09/28/16 10:19 Chloride 94 mEq/L (98-107) L 09/28/16 10:19 Carbon Dioxide 31.2 mEq/L (21.0-31.0) H 09/28/16 10:19 Anion Gap 6.9 (7.0-16.0) L 09/28/16 10:19 BUN 15 mg/dL (7-25) 09/28/16 10:19 Creatinine 0.8 mg/dL (0.7-1.3) 09/28/16 10:19 Est GFR ( Amer) TNP 09/28/16 10:19 Est GFR (Non-Af Amer) TNP 09/28/16 10:19 BUN/Creatinine Ratio 18.8 09/28/16 10:19 Glucose 247 mg/dL (70-105) H 09/28/16 10:19 POC Glucose 192 MG/DL (70 - 105) H 10/01/16 16:24 Hemoglobin A1c % 12.2 % (4.0-6.0) H 09/12/16 18:30 Calcium 9.8 mg/dL (8.6-10.3) 09/28/16 10:19 Magnesium 1.6 mg/dL (1.9-2.7) L 09/28/16 10:19 - Physical Exam Vitals and I&O: Vital Signs Temp 97.9 F 10/01/16 14:00 Pulse 85 10/01/16 17:26 Resp 18 10/01/16 15:25 BP 120/62 10/01/16 17:26 Pulse Ox 93 10/01/16 15:25 Intake & Output 09/30/16 10/01/16 10/01/16 18:59 06:59 18:59 Intake Total 1200 0 Balance 1200 0 Intake: Oral 1200 0 Other: # Voids 4 3 # Bowel Movements 0 Stool Characteristics Formed Active Medications: Current Medications Acetaminophen (Tylenol) 650 mg PO Q6HR PRN PRN Reason: mild pain Stop: 11/11/16 13:30 Acetaminophen/Hydrocodone Bitart ([place] 10 Mg/325 Mg) 1 tab PO Q6H PRN PRN Reason: Pain (Moderate-Severe) Stop: 11/11/16 13:30 Al Hydrox/Mg Hydrox/Simethicone (Maalox) 30 ml PO Q6H PRN PRN Reason: GI DISTRESS Stop: 11/11/16 13:43 Albuterol/Ipratropium (Duoneb Neb) 3 ml HHN Q8HRT [facility] Stop: 11/11/16 14:59 Last Admin: 10/01/16 15:23 Dose: 3 ml Albuterol/Ipratropium (Duoneb Neb) 3 ml HHN Q2H PRN PRN Reason: Wheezing Stop: 11/13/16 16:02 Last Admin: 09/27/16 21:46 Dose: 3 ml Aspirin (Ecotrin) 81 mg PO DAILY [facility] Stop: 11/12/16 08:59 Last Admin: 10/01/16 08:48 Dose: 81 mg Carisoprodol (Soma) 350 mg PO Q8HR PRN PRN Reason: severe muscle spasms Stop: 11/14/16 11:10 Last Admin: 09/30/16 22:49 Dose: 350 mg Carvedilol (Coreg) 3.125 mg PO BID [facility] Stop: 11/11/16 16:59 Last Admin: 10/01/16 17:26 Dose: 3.125 mg Citalopram Hydrobromide (Celexa) 40 mg PO DAILY [facility] PRN Reason: Protocol Stop: 11/12/16 08:59 Last Admin: 10/01/16 08:51 Dose: 40 mg Docusate Sodium (Colace) 500 mg PO BID [facility] Stop: 11/12/16 09:44 Last Admin: 10/01/16 16:41 Dose: 500 mg Furosemide (Lasix) 40 mg PO BID [facility] Stop: 11/11/16 16:59 Last Admin: 10/01/16 17:26 Dose: 40 mg Hydroxyzine Pamoate (Vistaril) 25 mg PO Q4HR PRN; Protocol PRN Reason: Anxiety Stop: 11/13/16 13:36 Insulin Aspart (Novolog Insulin Sliding Scale) 0 units SUBQ ACHS [facility] PRN Reason: Protocol Stop: 11/11/16 16:29 Last Admin: 10/01/16 16:38 Dose: Not Given Insulin Detemir (Levemir Insulin) 40 units SUBQ QDAC [facility] Stop: 11/12/16 07:29 Last Admin: 10/01/16 06:56 Dose: 40 units Insulin Detemir (Levemir Insulin) 30 units SUBQ QDIPM [facility] Stop: 11/11/16 17:44 Last Admin: 10/01/16 17:34 Dose: 30 unit Levothyroxine Sodium (Synthroid) 0.1 mg PO QDAC [facility] Stop: 11/12/16 07:29 Last Admin: 10/01/16 06:55 Dose: 0.1 mg Lorazepam (Ativan) 1 mg IVP Q4H PRN; Protocol PRN Reason: Anxiety/Agitation Stop: 11/11/16 13:43 Magnesium Hydroxide (Milk Of Magnesia) 30 ml PO BID PRN PRN Reason: Constipation Stop: 11/11/16 18:44 Last Admin: 10/01/16 16:41 Dose: 30 ml Metformin HCl (Glucophage) 850 mg PO BIDWM [facility] Stop: 11/17/16 17:59 Last Admin: 10/01/16 17:27 Dose: 850 mg Nateglinide (Starlix) 120 mg PO AC [facility] Stop: 11/17/16 11:29 Last Admin: 10/01/16 17:26 Dose: 120 mg Ondansetron HCl (Zofran Odt) 4 mg PO TID PRN PRN Reason: Nausea / Vomiting Stop: 11/11/16 13:30 Pantoprazole Sodium (Protonix) 40 mg PO DAILY [facility] Stop: 11/12/16 08:59 Last Admin: 10/01/16 08:50 Dose: 40 mg Potassium Chloride (Potassium Chloride Elixir) 16 meq PO DAILY [facility] Stop: 11/12/16 08:59 Last Admin: 10/01/16 08:46 Dose: 16 meq Risperidone (Risperdal) 2 mg PO DAILY [facility] Stop: 11/18/16 11:59 Last Admin: 10/01/16 08:51 Dose: 2 mg Simvastatin (Zocor) 40 mg PO HS [facility] PRN Reason: Protocol Stop: 11/11/16 20:59 Last Admin: 09/30/16 20:46 Dose: 40 mg Spironolactone (Aldactone) 25 mg PO DAILY [facility] Stop: 11/12/16 08:59 Last Admin: 10/01/16 08:51 Dose: 25 mg Valsartan (Diovan) 160 mg PO DAILY [facility] Stop: 11/12/16 08:59 Last Admin: 10/01/16 08:49 Dose: 160 mg Zolpidem Tartrate (Ambien) 5 mg PO HS PRN PRN Reason: Insomnia Stop: 11/11/16 13:43 General: no acute distress, well developed, well nourished HEENT: atraumatic, normocephalic, PERRLA, EOMI Neck: supple, no thyromegaly, no lymphadenopathy Cardiovascular: S1S2, regular Lungs: clear to auscultation bilaterally, clear to percussion Abdomen: soft, no tender, no distended Extremities: no cyanosis, no clubbing, no edema Neurological: awake, alert, oriented, CN 2-12 intact Skin: intact Infectious Disease Assmt/Plan - Problem List Patient Problems: All Active Problems CHF (Acute) DEPRESION (Acute) DM (Acute) HTN (Acute) MORBID OBESITY (Acute) SI (Acute) - Assessment Assessment: Impression: 1. Cellulitis of left foot, 2nd toe, with superficial small wound. healed. cellulitis has improved. 2. Psychosis. 3. MRSA colonization. - Plan Plan: Continue same treatment.
--- NOTE | 2016-10-01 20:02 | Progress Notes ---
SUBJECTIVE: Chart reviewed and the patient interviewed. Also discussed the patient's condition with the staff and reviewed records and labs. The patient is still depressed and he is still withdrawn. The patient also still has periods of anger and irritability. The patient is breathing easier today and he is not complaining of difficulty with his breathing like he was in the last few days. He is cooperative, but he is still feeling hopeless and helpless in regard to his weight and inabilities and also in regard to placement issue. ASSESSMENT: The patient is still severely depressed. TREATMENT PLAN: Continue monitoring his behavior and his medications. Also, continue to adjust psychotropic medications and work on placement issue. JOB# [id number]
[2016-10-02] MEDS: Levothyroxine 0.1 Mg Tab PO SCH (06:44)
[2016-10-02] MEDS: Insulin Detemir 100 units/mL 10mL Vial SUBQ SCH ×3 (06:45→18:08)
[2016-10-02] MEDS: INSULIN ASPART SLIDING SCALE 100 UNITS/ML UNIT SUBQ SCH ×4 (06:46→20:56)
[2016-10-02] MEDS: Albuterol/Ipratropium Neb 3 ML AERS HHN SCH ×3 (07:19→22:13)
[2016-10-02] MEDS: Pantoprazole 40 mg EC Tab PO SCH (08:21)
[2016-10-02] MEDS: Potassium Chloride Elixir 20 mEq /15 mL UDC PO SCH (08:22)
--- NOTE | 2016-10-02 10:26 | Progress Notes ---
SUBJECTIVE: The patient was seen in his room. The patient is still depressed and withdrawn and stated that he is feeling helpless and hopeless and the patient is still having some mental issues due to his depression and also having difficulty doing activities because of his weight and per the patient that he prefers to be staying in bed. OBJECTIVE: HEENT: Head is atraumatic, normocephalic. Eyes, bilateral conjunctivae are clear for injections. NECK: Supple. No JVD. CARDIOVASCULAR: S1, S2 heard without murmur. LUNGS: Mild inspiratory wheezing. ABDOMEN: Soft and nontender without guarding. Obese. EXTREMITIES: No edema. No weakness. ASSESSMENT: 1. Depression. 2. Schizophrenia. 3. Insomnia. 4. Anxiety. 5. Hypertension. 6. Diabetes. 7. Hyperlipidemia. 8. Hypothyroidism. 9. Diabetes. 10. Obesity. PLAN: We will follow up with the telephonic case manager to find a placement for the patient and we will follow up with the psych doctor regarding the patient's behavior and possible medication adjustments if needed. JOB# [id number]
[2016-10-02] MEDS: Magnesium Hydroxide (MOM) 30 mL UDC PO PRN (14:47)
[2016-10-02] MEDS ORDERED: Fleet Enema 135 mL RC PRN (15:53)
[2016-10-02] MEDS: Albuterol/Ipratropium Neb 3 ML AERS HHN PRN (18:40)
--- NOTE | 2016-10-02 21:01 | Progress Notes ---
SUBJECTIVE: The patient seen in his room. The patient still continues to be withdrawn and depressed, but according to the nurses, he is doing much better compared to previous days. The patient is still complaining of feeling hopeless and helpless in regards to taking care of himself. OBJECTIVE: HEENT: Head is atraumatic, normocephalic. Eyes: Bilateral conjunctivae are clear for injections. NECK: Supple. No JVD. CARDIOVASCULAR: S1 and S2 heard without murmur. LUNGS: Mild inspiratory wheezing noted. ABDOMEN: Soft and nontender. Positive bowel sounds, without guarding. EXTREMITIES: No edema and no weakness noted. ASSESSMENT: 1. Depression. 2. Schizophrenia. 3. Anxiety. 4. Insomnia. 5. Hypertension. 6. Diabetes. 7. Hypothyroidism. 8. Hyperlipidemia. 9. Obesity. PLAN: We will continue to monitor the patient here in the Psych unit. We will follow up with the psych doctor to monitor patient's behavior. JOB# [id number]
--- NOTE | 2016-10-02 21:55 | Progress Notes ---
Covering for Dr. Red. Case was discussed with staff of the patient, reviewed records. This is a well known case to me. I have seen him before covering for Dr. Red. The patient continues to be depressed and withdrawn. He has periods of anger and irritability. Breathing is improving, but he complained that he is unable to eat, though I saw that he ate all his food. I asked the staff to come and help him and call his medical doctor. He continues to feel hopeless and helpless regarding his weight. Apparently, he has been unable to find someone who will take him and the staff believed it could be because of his overweight that the [facility] feels he is going to be a burden and it will be very hard to . He is currently on Celexa 40 mg a day with no side effects, no sedation, and no nausea. Risperdal 2 mg daily. We will continue to work with the patient in group therapy, milieu therapy, and adjust the medication as needed. [facility]# [id number]
[2016-10-03] MEDS: Levothyroxine 0.1 Mg Tab PO SCH (06:37)
[2016-10-03] MEDS: Insulin Detemir 100 units/mL 10mL Vial SUBQ SCH ×2 (06:41→17:36)
[2016-10-03] MEDS: INSULIN ASPART SLIDING SCALE 100 UNITS/ML UNIT SUBQ SCH ×4 (06:44→20:58)
[2016-10-03] MEDS: Albuterol/Ipratropium Neb 3 ML AERS HHN SCH ×3 (06:58→22:34)
[2016-10-03] MEDS: Potassium Chloride Elixir 20 mEq /15 mL UDC PO SCH (09:07)
[2016-10-03] MEDS: Pantoprazole 40 mg EC Tab PO SCH (09:11)
[2016-10-03] MEDS: Albuterol/Ipratropium Neb 3 ML AERS HHN PRN ×2 (12:55→20:20)
--- NOTE | 2016-10-03 19:45 | Infectious Disease Prog Note ---
Infectious Disease Subjective - Review of Systems Service Date: 10/03/16 Subjective: no new change. Infectious Disease Objective - Results Result Diagrams: 09/28/16 10:19 09/28/16 10:19 Recent Labs: Laboratory Last Values WBC 8.7 Th/cmm (4.8-10.8) 09/28/16 10:19 RBC 5.36 Mil/cmm (3.80-5.80) 09/28/16 10:19 Hgb 14.8 gm/dL (12.6-17.4) 09/28/16 10:19 Hct 44.8 % (39.0-49.0) 09/28/16 10:19 MCV 83.5 fl (80-99) 09/28/16 10:19 MCH 27.7 pg (27.0-31.0) 09/28/16 10:19 MCHC Differential 33.1 pg (28.0-36.0) 09/28/16 10:19 RDW 12.4 % (11.5-20.0) 09/28/16 10:19 Plt Count 259 Th/cmm (150-400) D 09/28/16 10:19 MPV 7.4 fl 09/28/16 10:19 Neutrophils % 83.6 % (40.0-80.0) H 09/28/16 10:19 Lymphocytes % 10.6 % (20.0-50.0) L 09/28/16 10:19 Monocytes % 4.8 % (2.0-10.0) 09/28/16 10:19 Eosinophils % 1.0 % (0.0-5.0) 09/28/16 10:19 Basophils % 0.0 % (0.0-2.0) 09/28/16 10:19 Sodium 128 mEq/L (136-145) L 09/28/16 10:19 Potassium 4.1 mEq/L (3.5-5.1) 09/28/16 10:19 Chloride 94 mEq/L (98-107) L 09/28/16 10:19 Carbon Dioxide 31.2 mEq/L (21.0-31.0) H 09/28/16 10:19 Anion Gap 6.9 (7.0-16.0) L 09/28/16 10:19 BUN 15 mg/dL (7-25) 09/28/16 10:19 Creatinine 0.8 mg/dL (0.7-1.3) 09/28/16 10:19 Est GFR ( Amer) TNP 09/28/16 10:19 Est GFR (Non-Af Amer) TNP 09/28/16 10:19 BUN/Creatinine Ratio 18.8 09/28/16 10:19 Glucose 247 mg/dL (70-105) H 09/28/16 10:19 POC Glucose 269 MG/DL (70 - 105) H 10/03/16 16:29 Hemoglobin A1c % 12.2 % (4.0-6.0) H 09/12/16 18:30 Calcium 9.8 mg/dL (8.6-10.3) 09/28/16 10:19 Magnesium 1.6 mg/dL (1.9-2.7) L 09/28/16 10:19 - Physical Exam Vitals and I&O: Vital Signs Temp 98.5 F 10/03/16 14:40 Pulse 90 10/03/16 17:33 Resp 20 10/03/16 15:11 BP 101/69 10/03/16 17:34 Pulse Ox 96 10/03/16 15:11 Intake & Output 10/03/16 10/03/16 10/04/16 06:59 18:59 06:59 Intake Total 720 1100 Output Total 500 Balance 220 1100 Intake: Oral 720 1100 Output: Urine 500 Other: # Voids 4 4 # Bowel Movements 0 1 Active Medications: Current Medications Acetaminophen (Tylenol) 650 mg PO Q6HR PRN PRN Reason: mild pain Stop: 11/11/16 13:30 Acetaminophen/Hydrocodone Bitart ([place] 10 Mg/325 Mg) 1 tab PO Q6H PRN PRN Reason: Pain (Moderate-Severe) Stop: 11/11/16 13:30 Al Hydrox/Mg Hydrox/Simethicone (Maalox) 30 ml PO Q6H PRN PRN Reason: GI DISTRESS Stop: 11/11/16 13:43 Albuterol/Ipratropium (Duoneb Neb) 3 ml HHN Q8HRT [facility] Stop: 11/11/16 14:59 Last Admin: 10/03/16 15:10 Dose: 3 ml Albuterol/Ipratropium (Duoneb Neb) 3 ml HHN Q2H PRN PRN Reason: Wheezing Stop: 11/13/16 16:02 Last Admin: 10/03/16 12:55 Dose: 3 ml Aspirin (Ecotrin) 81 mg PO DAILY [facility] Stop: 11/12/16 08:59 Last Admin: 10/03/16 09:12 Dose: 81 mg Carisoprodol (Soma) 350 mg PO Q8HR PRN PRN Reason: severe muscle spasms Stop: 11/14/16 11:10 Last Admin: 09/30/16 22:49 Dose: 350 mg Carvedilol (Coreg) 3.125 mg PO BID [facility] Stop: 11/11/16 16:59 Last Admin: 10/03/16 17:33 Dose: Not Given Citalopram Hydrobromide (Celexa) 40 mg PO DAILY [facility] PRN Reason: Protocol Stop: 11/12/16 08:59 Last Admin: 10/03/16 09:11 Dose: 40 mg Docusate Sodium (Colace) 500 mg PO BID [facility] Stop: 11/12/16 09:44 Last Admin: 10/03/16 17:31 Dose: 500 mg Furosemide (Lasix) 40 mg PO BID [facility] Stop: 11/11/16 16:59 Last Admin: 10/03/16 17:34 Dose: Not Given Hydroxyzine Pamoate (Vistaril) 25 mg PO Q4HR PRN; Protocol PRN Reason: Anxiety Stop: 11/13/16 13:36 Insulin Aspart (Novolog Insulin Sliding Scale) 0 units SUBQ ACHS [facility] PRN Reason: Protocol Stop: 11/11/16 16:29 Last Admin: 10/03/16 17:30 Dose: 4 units Insulin Detemir (Levemir Insulin) 40 units SUBQ QDAC [facility] Stop: 11/12/16 07:29 Last Admin: 10/03/16 06:41 Dose: 40 units Insulin Detemir (Levemir Insulin) 30 units SUBQ QDIPM [facility] Stop: 11/11/16 17:44 Last Admin: 10/03/16 17:36 Dose: 30 unit Levothyroxine Sodium (Synthroid) 0.1 mg PO QDAC [facility] Stop: 11/12/16 07:29 Last Admin: 10/03/16 06:37 Dose: 0.1 mg Lorazepam (Ativan) 1 mg IVP Q4H PRN; Protocol PRN Reason: Anxiety/Agitation Stop: 11/11/16 13:43 Magnesium Hydroxide (Milk Of Magnesia) 30 ml PO BID PRN PRN Reason: Constipation Stop: 11/11/16 18:44 Last Admin: 10/02/16 14:47 Dose: 30 ml Metformin HCl (Glucophage) 850 mg PO BIDWM [facility] Stop: 11/17/16 17:59 Last Admin: 10/03/16 17:39 Dose: 850 mg Nateglinide (Starlix) 120 mg PO AC [facility] Stop: 11/17/16 11:29 Last Admin: 10/03/16 17:32 Dose: 120 mg Ondansetron HCl (Zofran Odt) 4 mg PO TID PRN PRN Reason: Nausea / Vomiting Stop: 11/11/16 13:30 Pantoprazole Sodium (Protonix) 40 mg PO DAILY [facility] Stop: 11/12/16 08:59 Last Admin: 10/03/16 09:11 Dose: 40 mg Potassium Chloride (Potassium Chloride Elixir) 16 meq PO DAILY [facility] Stop: 11/12/16 08:59 Last Admin: 10/03/16 09:07 Dose: 16 meq Risperidone (Risperdal) 2.5 mg PO DAILY [facility] Stop: 12/02/16 12:07 Simvastatin (Zocor) 40 mg PO HS [facility] PRN Reason: Protocol Stop: 11/11/16 20:59 Last Admin: 10/02/16 20:54 Dose: 40 mg Sodium Phosphate (Fleet Enema) 135 ml RC Q72H PRN PRN Reason: Constipation Stop: 12/01/16 15:52 Last Admin: 10/03/16 17:59 Dose: 135 ml Spironolactone (Aldactone) 25 mg PO DAILY [facility]AN[facility] Stop: 11/12/16 08:59 Last Admin: 10/03/16 09:12 Dose: 25 mg Valsartan (Diovan) 160 mg PO DAILY [facility]AN[facility] Stop: 11/12/16 08:59 Last Admin: 10/03/16 09:22 Dose: 160 mg Zolpidem Tartrate (Ambien) 5 mg PO HS PRN PRN Reason: Insomnia Stop: 11/11/16 13:43 Infectious Disease Assmt/Plan - Problem List Patient Problems: All Active Problems CHF (Acute) DEPRESION (Acute) DM (Acute) HTN (Acute) MORBID OBESITY (Acute) SI (Acute) - Assessment Assessment: Impression: 1. Cellulitis of left foot, 2nd toe, with superficial small wound. healed. cellulitis has improved. 2. Psychosis. 3. MRSA colonization. - Plan Plan: Continue same treatment.
[2016-10-04] MEDS: Albuterol/Ipratropium Neb 3 ML AERS HHN SCH (02:35)
[2016-10-04] MEDS: INSULIN ASPART SLIDING SCALE 100 UNITS/ML UNIT SUBQ SCH (06:44)
[2016-10-04] MEDS: Insulin Detemir 100 units/mL 10mL Vial SUBQ SCH (06:45)
[2016-10-04] MEDS: Levothyroxine 0.1 Mg Tab PO SCH (06:46)
[2016-10-04 08:28] LABS: % BASOPHILS 0.5 % (0.0-2.0); % EOSINOPHILS 0.8 % (0.0-5.0); % LYMPHOCYTES 12.7 % (20.0-50.0); % MONOCYTES 6.3 % (2.0-10.0); % NEUTROPHILS 79.7 % (40.0-80.0); HEMOGLOBIN 14.5 gm/dL (12.6-17.4); MEAN CELL VOLUME 85.7 fl (80-99); MEAN CORPUSCULAR HEMOGLOBIN 28.3 pg (27.0-31.0); MEAN PLATELET VOLUME 7.9 fl; NEUTROPHILE ABSOLUTE 8.6 Th/cmm (1.8-8.0); PLATELET COUNT 244 Th/cmm (150-400); RED BLOOD COUNT 5.14 Mil/cmm (3.80-5.80); RED CELL DISTRIBUTION WIDTH 12.4 % (11.5-20.0)
[2016-10-04 08:36] LABS: WHITE BLOOD COUNT 10.9 Th/cmm (4.8-10.8)
[2016-10-04 08:43] LABS: ALB/GLOB RATIO 1.3 (1.0-1.8); ALKALINE PHOSPHATASE 53 U/L (34-104); ANION GAP 7.4 (7.0-16.0); BILIRUBIN,TOTAL 1.2 mg/dL (0.3-1.0); BUN - UREA NITROGEN 17 mg/dL (7-25); BUN/CREATININE RATIO 24.3; CALCIUM SERUM 9.7 mg/dL (8.6-10.3); CARBON DIOXIDE 33.8 mEq/L (21.0-31.0); CHLORIDE 90 mEq/L (98-107); CREATININE - SERUM 0.7 mg/dL (0.7-1.3); GLUCOSE 198 mg/dL (70-105); POTASSIUM SERUM 4.2 mEq/L (3.5-5.1); SGOT 14 U/L (13-39); SGPT/ALT 17 U/L (7-52); SODIUM SERUM 127 mEq/L (136-145)
--- NOTE | 2016-10-04 09:43 | Progress Notes ---
Covering for Dr. Red. Case was discussed with staff of the patient, reviewed records. The patient continues to isolate himself in his bed. He reports that there is no energy, no motivation. Continues to be depressed, easily overwhelmed. He said he is disappointing himself. He says he is trying hard to help himself. He is obese and will be having problem in locating a place that will be accepting him, but however, he has been refused placement because of his obesity. Thus our impression, he is unpredictable, impulsive, depressed. I will be increasing Risperdal dose to help with his depression and irritability to 2.5 mg at bedtime and so far, no side effects, no sedation, no nausea, no extrapyramidal symptoms. We will continue to work with the patient in group therapy, milieu therapy, adjust the medication as needed. JOB# [id number]
--- NOTE | 2016-10-04 09:50 | Diagnostic Imaging Report ---
CHEST X-RAY: AP view INDICATION: Congestion COMPARISON: None FINDINGS: Mild congestive changes are seen with bibasal atelectasis and left basal density. Cardiomegaly is noted. Degenerative changes of the spine are noted. IMPRESSION: Mild congestive changes with bibasal atelectasis and left basal density which may represent a small pleural effusion. No focal consolidation identified Cardiomegaly.
--- NOTE | 2016-10-09 11:18 | Discharge Summary ---
FINAL DIAGNOSIS/PRIMARY DIAGNOSIS: Major depression, severe, recurrent without psychotic features. SECONDARY DIAGNOSIS: Generalized anxiety disorder. REASON FOR HOSPITALIZATION: The patient was admitted to the hospital because of increased depression, hopeless and helpless feelings, suicidal ideations and severe anxiety. HOSPITAL COURSE: The patient was severely anxious and severely depressed. The patient was feeling hopeless and helpless. The patient was given Celexa and the dose adjusted to 40 mg every day. The patient developed bleeding from his nose and coughing blood according to the staff and Dr. Pedro Fernandez ordered to transfer the patient to medical floor. The patient had no major medical problems except the nosebleed and coughing blood and because of the concern about his medical condition, especially with obesity, the patient was transferred. AFTER DISCHARGE PLANS: The patient will be followed in medical floor with plans for outpatient treatment and followup there. The patient also will need placement. [facility]# [id number]
== END 2016-10-04 06:38 | disposition short-term general hospital (02) | DRG 885 ==
LOC: EDBD → GERO 11:00
PROVIDERS: ADMIT Psychiatry & Neurology Psychiatry; ATTEND Psychiatry & Neurology Psychiatry
DX: F33.2 Major depressive disorder, recurrent severe without psychotic features (principal); E11.9 Type 2 diabetes mellitus without complications; I11.0 Hypertensive heart disease with heart failure; I50.9 Heart failure, unspecified; Z68.42 Body mass index [BMI] 45.0-49.9, adult; E03.9 Hypothyroidism, unspecified; L03.032 Cellulitis of left toe; E78.5 Hyperlipidemia, unspecified; E66.01 Morbid (severe) obesity due to excess calories; F20.9 Schizophrenia, unspecified; F29 Unspecified psychosis not due to a substance or known physiological condition; F41.9 Anxiety disorder, unspecified; G47.00 Insomnia, unspecified; Z88.8 Allergy status to other drugs, medicaments and biological substances; Z79.4 Long term (current) use of insulin; Z79.82 Long term (current) use of aspirin; Z22.322 Carrier or suspected carrier of Methicillin resistant Staphylococcus aureus
CPT/HCPCS: 36415-UA; 71010-TC; 80048-TC; 80053-TC; 82947-TC; 82948-90; 83036-90; 83735-TC; 85025-TC; 94760; 97530; J1815; Q0177; X3904; Z7610

== ENCOUNTER 2016-10-04 06:38 | Inpatient (IN) | payer MEDICARE, MEDICAID ==
[2016-10-04] MEDS ORDERED: Hydrocodone/APAP 10 mg/325 mg Tab PO PRN (08:16)
[2016-10-04] MEDS ORDERED: Potassium Chloride Elixir 20 mEq /15 mL UDC PO SCH (09:00)
[2016-10-04 10:01] VITALS: BP 131/75
[2016-10-04] MEDS: Pantoprazole 40 mg EC Tab PO SCH (10:02)
[2016-10-04] MEDS ORDERED: Sodium Chloride 0.9% 1,000 ML IV SCH (10:30)
[2016-10-04] MEDS: Albuterol/Ipratropium Neb 3 ML AERS HHN SCH ×2 (12:51→19:37)
[2016-10-04] MEDS: INSULIN ASPART SLIDING SCALE 100 UNITS/ML UNIT SUBQ SCH ×3 (13:37→21:00)
[2016-10-04] MEDS ORDERED: Albuterol/Ipratropium Neb 3 ML AERS HHN SCH (15:00)
--- NOTE | 2016-10-04 15:23 | History & Physical ---
CHIEF COMPLAINT: Epistaxis versus hemoptysis. HISTORY OF PRESENT ILLNESS: The patient is a 76-year-old male with a past medical history of CHF, diabetes mellitus type 2, morbid obesity, brought in from [facility] to [facility] for depression and suicidal ideation. While the patient was getting treatment for his suicidal ideation and anxiety disorder, the patient developed epistaxis versus hemoptysis. I was informed by nurse this morning. So, the patient was transferred to the acute care setting. On initial evaluation, the patient was afebrile. WBC count 10,900 and hemoglobin was 14.5, stable. The patient's sodium was 127, which is on lower side. Shop Fitter was called, Dr. Mccarthy. On further evaluation, chest x-ray showed CHF. Cardiology consultation was recommended. So far, the patient has no bleeding since his arrival to the medical/surgical unit. PAST MEDICAL HISTORY: CHF, cardiomyopathy, hypertension, diabetes mellitus and obesity. PAST SURGICAL HISTORY: Unknown. ALLERGIES: Benazepril, januvia and glipizide. REVIEW OF SYSTEMS: GENERAL: The patient has no fever, no chills. HEENT: No diplopia, no photophobia, no sore throat. RESPIRATORY: The patient has no cough, no shortness of breath. As per the patient, the patient has no hemoptysis. He stated that he had bleeding from the nose. CARDIOVASCULAR: No chest pain or palpitation. GASTROINTESTINAL: No nausea, no vomiting, no diarrhea, no constipation. GENITOURINARY: No dysuria. NEUROLOGIC: No headache, no dizziness, no focal weakness. MUSCULOSKELETAL: No muscle pain, no joint pain. PHYSICAL EXAMINATION: VITAL SIGNS: Shows temperature is 99.3 degrees Fahrenheit, pulse is 75, respiration is 18, blood pressure is 131/75. GENERAL: The patient is comfortable lying in the bed, not in acute distress. HEENT: Head is normocephalic, atraumatic. Oral cavity moist, pink tongue. Eyes: No pallor, no icterus. PERRLA, EOMI. NECK: Supple, no JVD, no carotid bruit. Trachea in midline. CHEST: Bilateral breath sounds. No crackles, no wheezing. HEART: S1, S2 within normal limits. Regular rhythm. No murmur, no gallop. ABDOMEN: Soft, nontender, nondistended. Bowel sounds present. EXTREMITIES: No cyanosis. No clubbing, no edema. NEUROLOGICAL: Alert, awake, oriented x 3. LABORATORY DATA: Current lab shows WBC count is 10,900, hemoglobin 14.5, hematocrit 44, platelets are 244,000, neutrophils 79.7%. Sodium 127, potassium 4.2, chloride 90, bicarbonate 33.8, BUN is 17, creatinine 0.7, glucose is 198. Chest x-ray showed mild congestive changes with bilateral atelectasis and left basal density and small pleural effusion. No focal consolidation. Cardiomegaly. IMPRESSION: 1. Likely epistaxis, stable at this time. 2. Congestive heart failure. 3. Hypertension. 4. Diabetes mellitus, type 2. 5. Methicillin-resistant Staphylococcus aureus colonization. 6. Obesity. 7. Obstructive sleep apnea. 8. Chronic obstructive pulmonary disease. 9. Atrial fibrillation. RECOMMENDATIONS: We will change Lasix 40 mg p.o. twice a day to IV twice a day. As the patient has had hyponatremia, will give some normal saline. Continue same medications. Consult Dr. Vega, Cardiology consultation, for CHF and management of cardiac medications. We will also ask for anticoagulation management as the patient had epistaxis and Xarelto was placed on hold. Also Pulmonary consultation for COPD and probably obstructive sleep apnea and suspected hemoptysis. JOB# [id number] MICKEY
[2016-10-04 17:48] LABS: URINE BILIRUBIN NEGATIVE (NEGATIVE); URINE BLOOD NEGATIVE (NEGATIVE); URINE COLOR YELLOW; URINE GLUCOSE (UA) 100 mg/dL (NEGATIVE); URINE KETONE NEGATIVE (NEGATIVE); URINE PROTEIN NEGATIVE (NEGATIVE)
[2016-10-04 17:49] LABS: URINE BACTERIA OCCASIONAL /hpf (NONE SEEN); URINE EPITHELIAL CELLS RARE /lpf (FEW); URINE RBC NONE SEEN /hpf (0-5); URINE UROBILINOGEN 0.2 E.U./dL (0.2 - 1.0); URINE WBC 0-2 /hpf (0-5)
[2016-10-04] MEDS: Budesonide 0.5 Mg/2 mL Ud HHN SCH (19:37)
[2016-10-04] MEDS: Insulin Detemir 100 units/mL 10mL Vial SUBQ SCH (21:00)
--- NOTE | 2016-10-04 22:15 | Consultation ---
REFERRING PHYSICIAN: Dr. Pedro Fernandez. History reviewed and patient examined. HISTORY OF PRESENT ILLNESS: The patient is a 76-year-old man transferred from the [facility] with chief complaint of epistaxis. He has been on anticoagulants. He has history of major depression and was [facility]2016 with suicidal ideation. PAST MEDICAL HISTORY: Diabetes mellitus, hypertension, congestive heart failure, chronic atrial fibrillation, and possible cardiomyopathy. MEDICATIONS: DuoNeb inhaler, Coreg 3.125 mg b.i.d., Celexa 20 mg daily, insulin, Synthroid 0.1 mg daily, Protonix 40 mg daily, simvastatin 40 mg daily, valsartan 160 mg daily, and Lasix. ALLERGIES: He is allergic to glipizide, benazepril, and Januvia. SOCIAL HISTORY: He is a former cigarette smoker. REVIEW OF SYSTEMS: He denies dyspnea and chest pain at the present time. PHYSICAL EXAMINATION: VITAL SIGNS: Heart rate 72, blood pressure 101/37, height 1.88 meters, weight 176 kilo, and BMI 49.8. GENERAL: The patient is alert and cooperative. SKIN: Warm and dry. NECK: No carotid bruit is heard. LUNGS: Air exchange is diffusely diminished. Lungs are clear to auscultation. Precordium is quiet without lift, heave, thrill, or bulge. CARDIOVASCULAR: Heart tones are distant. No murmur was appreciated. ABDOMEN: Obese, soft, and nontender. Bowel sounds are normal. There is no edema. EXTREMITIES: Pulses are diminished below the femorals bilaterally. Electrocardiogram shows atrial fibrillation with controlled ventricular response and right bundle branch block. Repeat EKG, chest x-ray, echocardiogram, and laboratory data are still pending. IMPRESSION: 1. Epistaxis (patient on anticoagulants). 2. Major depression. 3. Hypertension. 4. Congestive heart failure. 5. Diabetes mellitus. 6. Chronic obstructive lung disease. 7. Chronic atrial fibrillation. 8. Possible cardiomyopathy. COMMENTS: Concur with present regimen. Additional comments will be forthcoming when the above noted tests have been completed. Thank you for asking me to participate in the care of your patient. I will be glad to follow him with you as necessary during his hospitalization. JOB# [id number]
--- NOTE | 2016-10-04 23:47 | Progress Notes ---
SUBJECTIVE: Chart reviewed and the patient interviewed. Also discussed the patient's condition with the staff and reviewed records and labs. The patient is still severely depressed and anxious. The patient was in [facility] and transferred to Medical Floor after he was coughing blood and Dr. Fernandez ordered to transfer him to the Medical Floor. The patient is still anxious and is still worried about his physical condition. Also, he is still isolative and is still withdrawn. The patient also is still feeling at times hopeless. The patient has difficulty finding a place to live and mental health case manager is trying to find him a place. Otherwise, the patient is cooperative with his treatment. He denies any thoughts of suicide or homicide. Actually during interview, the patient has poor eye contact with low tone and rate of speech. He also is overweight and unkempt. He denies any thoughts of suicide or homicide. PLAN: To continue current medication, which is Celexa and we will continue to follow up closely. [facility]# [id number]
[2016-10-05] MEDS: Albuterol/Ipratropium Neb 3 ML AERS HHN SCH ×4 (00:34→19:16)
--- NOTE | 2016-10-05 06:13 | Consultation ---
REFERRING PHYSICIAN: Dr. Pedro Fernandez. Thank you very much Dr. Fernandez for this consultation. HISTORY OF PRESENT ILLNESS: This is a 76-year-old male who [facility]. The patient has underlying history of CHF, COPD and atrial fibrillation. The patient on both Xarelto and aspirin developed epistaxis yesterday and last night and started having some hemoptysis afterwards, transferred here for further evaluation. The patient feels much short of breath. He says he is not getting enough oxygen. PAST MEDICAL HISTORY: As above. SOCIAL HISTORY: He smoked for many years, quit in the 80s. REVIEW OF SYSTEMS: GENERAL: Some weakness and fatigue. CARDIOVASCULAR: No chest pain and no palpitation. RESPIRATORY: Some shortness of breath. No cough. GASTROINTESTINAL: No nausea or vomiting. PHYSICAL EXAMINATION: GENERAL: Awake and alert, in no acute distress. VITAL SIGNS: Temperature 97.1, pulse 75, respiration 21 and blood pressure 131/75. HEENT: Head is atraumatic and normocephalic. Pupils are reactive to light and accommodation. Ears, nose and throat normal. NECK: Supple. No JVD. CHEST: There is scattered rhonchi and wheezing bilaterally. HEART: Regular rate and rhythm. ABDOMEN: Soft and nontender. EXTREMITIES: No edema. CHEST X-RAY: Pulmonary congestion with small pleural effusion. LABORATORY DATA: WBC is 10.9, hemoglobin is 14.5, hematocrit is 44.0 and platelets is 244. Sodium is 127, potassium 4.2, BUN is 17, creatinine 0.7 and glucose 198. IMPRESSION: 1. This is a 76-year-old male with epistaxis resulting in hemoptysis most likely secondary to anticoagulation with combination of Xarelto and aspirin. 2. CHF possibly still active with underlying atrial fibrillation. 3. Obesity. 4. Possible obstructive sleep apnea syndrome. 5. Possible underling airway disease to suggest COPD and bronchospasm. PLAN: 1. Add nebulizer treatment. 2. Diuresis. 3. Suggest cardiac evaluation. 4. We will add Pulmicort. 5. Follow up his chest x-ray. Thank you very much Dr. Pedro Fernandez for this consultation. I will follow the patient with you. [facility]# [id number] [facility]
[2016-10-05] MEDS: Insulin Detemir 100 units/mL 10mL Vial SUBQ SCH ×2 (06:35→22:28)
[2016-10-05] MEDS: INSULIN ASPART SLIDING SCALE 100 UNITS/ML UNIT SUBQ SCH ×4 (06:35→22:12)
[2016-10-05] MEDS: Levothyroxine 0.1 Mg Tab PO SCH (06:39)
[2016-10-05 06:44] LABS: ANION GAP 8.5 (7.0-16.0); BUN - UREA NITROGEN 22 mg/dL (7-25); BUN/CREATININE RATIO 27.5; CALCIUM SERUM 9.5 mg/dL (8.6-10.3); CARBON DIOXIDE 33.6 mEq/L (21.0-31.0); CHLORIDE 90 mEq/L (98-107); CREATININE - SERUM 0.8 mg/dL (0.7-1.3); GLUCOSE 213 mg/dL (70-105); POTASSIUM SERUM 4.1 mEq/L (3.5-5.1); SODIUM SERUM 128 mEq/L (136-145); URIC ACID 7.1 mg/dL (4.4-7.6)
[2016-10-05] MEDS: Budesonide 0.5 Mg/2 mL Ud HHN SCH ×2 (08:06→19:17)
[2016-10-05] MEDS: Pantoprazole 40 mg EC Tab PO SCH (09:22)
--- NOTE | 2016-10-05 10:50 | Diagnostic Imaging Report ---
Portable chest x-ray HISTORY: Shortness of breath Compared with prior exam of 10/04/2016, the heart is enlarged. Accentuation of the left perihilar markings. However, no definite focal pulmonary processes. IMPRESSION: 1. Allowing for a poor inspiration, no definite acute focal pulmonary processes 2. Persistent cardiomegaly
[2016-10-05] MEDS ORDERED: Pneumococcal Vaccine 0.5 mL Vial IM ONE (12:21)
[2016-10-05] MEDS ORDERED: Influenza Vaccine 0.5 mL Syr IM ONE (12:21)
--- NOTE | 2016-10-05 13:50 | Consultation ---
ATTENDING PHYSICIAN: Pedro Fernandez M.D. HIM CODER: Levon Washington M.D. REASON FOR CONSULTATION: Chronic hyponatremia. HISTORY OF PRESENT ILLNESS: This is a 76-year-old male with past medical history of depression who was transferred from [facility] to [facility] due to epistaxis. The patient was admitted at [facility] last on 09/12/2016 due to suicidal ideation. He threatened to kill himself and other residents at the snf. He felt hopeless and helpless. A few hours prior to transfer, he had developed another episode of epistaxis. He felt blood dripping down his throat and caused him to vomit. He also has ongoing shortness of breath. He denied any cough, congestion, fever and chills. He had no history of nausea and vomiting, or diarrhea. PAST MEDICAL HISTORY: 1. Depression. 2. Obesity. 3. Hypothyroidism. 4. Type 2 diabetes mellitus. 5. Essential hypertension. CURRENT MEDICATIONS: He is currently on acetaminophen, albuterol/ipratropium, aspirin, Pulmicort, carvedilol, citalopram, docusate sodium, furosemide, [place], detemir, levothyroxine, ondansetron, pantoprazole, potassium chloride, Xarelto, Zocor, spironolactone, valsartan. ALLERGIES: ALLERGIC TO GLIPIZIDE, BENAZEPRIL AND JANUVIA. SOCIAL HISTORY: He did have a history of smoking, but quit in the 1980s. No history of alcohol consumption. 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 FAMILY HISTORY: Noncontributory to present illness. REVIEW OF SYSTEMS: CONSTITUTIONAL: Appetite had been fair, no fever or chills. HEENT: No mention of headaches, no dizziness. CARDIORESPIRATORY: He currently has some shortness of breath, epistaxis. However, he has no chest pain, palpitations. No diaphoresis. GASTROINTESTINAL: He vomited some bladder, which originated from his epistaxis. No abdominal pain or cramping, hemoptysis, melena, hematochezia, no diarrhea. ENDOCRINE: Has a history of diabetes and hypothyroidism. No dyslipidemia. MUSCULOSKELETAL: Multiple joint arthralgias. GENITOURINARY: No history of kidney failure, but has electrolyte imbalance. No dysuria, no hematuria. NEUROPSYCH: He has a history of major depression. No syncopal episode or seizure activity. PHYSICAL EXAMINATION: GENERAL: The patient is morbidly obese, some respiratory distress, alert, oriented. VITAL SIGNS: Blood pressure is 131/75, pulse 75, patient is afebrile. SKIN: Good turgor, warm, no rash, no jaundice appreciated. HEENT: Head normocephalic, atraumatic. Eyes: Extraocular muscles intact. Pupils equal, round, reactive to light and accommodates. Anicteric sclerae. [place] conjunctivae. Nose, midline nasal septum. Mouth, moist mucosa with adequate dentition. NECK: Supple, no adenopathy, no thyromegaly, no bruits. Trachea palpated in the midline. CARDIOVASCULAR: S1, S2. No rub, murmur nor gallop appreciated. He has distant sounds. Point of maximal impulse in fifth intercostal space, left midclavicular line. No abdominal or femoral bruits appreciated. LUNGS: Equal expansion. Minimal use of accessory muscles. No supraclavicular retractions. Few rhonchi, but no wheezes or congestion appreciated. ABDOMEN: Morbidly obese, soft, positive for bowel sounds. No bruits either diastolic or systolic. RECTAL: Deferred due to patient's size. GENITOURINARY: Normal appearing male genitalia. MUSCULOSKELETAL: No effusions present in his joints, but unable to assess his range of motion. EXTREMITIES: He has bilateral lower extremity hyperpigmentation with skin desquamation. There is no evidence of any cyanosis nor clubbing. He has mild bipedal edema. NEUROLOGIC: Alert, oriented. Motor is 5/5. Cranial nerves 2-12 intact. Sensory intact. LABORATORY DATA: Revealed sodium 127, potassium 4.2, chloride 90, bicarbonate 33, BUN 17, creatinine 0.7, glucose 198, calcium 9.7. White count 10.9, hemoglobin 14.5, hematocrit 44, polys 79.7%, platelets 249. Chest x-ray showed mild congestion with left basal density suggestive of small effusions with bibasal atelectasis. IMPRESSION: 1. Chronic hyponatremia. The patient is obese, but remains euvolemic. Possibility of SIADH should be considered especially he has chronic hyponatremia revealed by labs drawn 3-4 weeks ago. As mentioned, this may be due to SIADH brought about by citalopram, which is an SSRI. He also has been on Aldactone and this can cause hyponatremia. 2. Recurrent epistaxis secondary to aspirin and Xarelto. 3. Hematemesis, possibly from epistaxis. 4. Respiratory distress, probably exacerbation of chronic obstructive pulmonary disease, consider congestive heart failure ____ this is very mild. 5. Morbid obesity. 6. Obesity hypoventilation syndrome (with combination of obesity and obstructive sleep apnea). 7. Major depression with suicidal ideation. 8. Hypothyroidism. 9. Type 2 diabetes mellitus. 10. Essential hypertension. 11. Bilateral leg venostasis. 12. Metabolic alkalosis. PLAN: 1. Administer Lasix x 1 because he only has a very mild congestive heart failure. 2. Discontinue IV fluids, Aldactone and also consider discontinuing citalopram, which is an SSRI and switch to another antidepressant. 3. Electrolytes, uric acid, serum osmolality, hemoglobin A1c, TSH, cortisol and BNP level. 4. Urinalysis, urine spot sodium and osmolality. 5. Follow up chest x-ray. 6. Consider discontinuing Xarelto and aspirin because of his epistaxis. Thank you, Dr. Fernandez for this consult. I will follow the patient closely with you. JOB# [id number]
--- NOTE | 2016-10-05 18:20 | Cardiology ---
ECHOCARDIOGRAM REPORT 2-Dimensional M-Mode echocardiogram is reviewed. Image quality is limited due to the patient's body habitus. There is no evidence of pericardial effusion. No intracardiac thrombi or vegetations are seen. There is increased thickness of the interventricular septum and increased thickness of the left ventricular posterior wall. Left ventricle is dilated. EPSS is increased. Color Doppler flow study shows mild mitral regurgitation, mild tricuspid regurgitation. Left atrium is dilated. CONCLUSION: Left ventricular ejection fraction is 45% with left ventricular hypertrophy. Left atrial enlargement, dilated left ventricle, mild mitral regurgitation, mild tricuspid regurgitation, and left ventricular diastolic dysfunction. Right ventricular systolic pressure is 36 mmHg. [facility]# [id number]
--- NOTE | 2016-10-05 21:10 | Progress Notes ---
SUBJECTIVE: The patient was seen awake and alert in his bed. The patient is still complaining of episodic epistaxis, but no bleeding noted during this assessment. OBJECTIVE: HEENT: Head is atraumatic and normocephalic. Eyes: Bilateral pupils equally round and reactive. NECK: Supple. No JVD. CARDIOVASCULAR: S1 and S2 heard regularly without murmur. PULMONARY: Mild inspiratory wheezing noted. The patient is currently on 2 liters of oxygen via nasal cannula. GASTROINTESTINAL: Soft and nontender. Positive bowel sounds without guarding. The patient is obese. MUSCULOSKELETAL: Bilateral lower extremity weakness. ASSESSMENT: 1. Epistaxis. 2. Hypertension. 3. Congestive heart failure. 4. Diabetes. 5. Chronic atrial fibrillation. 6. Chronic obstructive pulmonary disease. 7. Depression. 8. Obesity. PLAN: We will add oxygen humidifier to the patient's oxygen. We will continue to monitor for episodes of any epistaxis. We will also continue physical therapy for the patient's weakness. [facility]# [id number]
[2016-10-06] MEDS: Albuterol/Ipratropium Neb 3 ML AERS HHN SCH ×2 (01:22→08:01)
[2016-10-06] MEDS: INSULIN ASPART SLIDING SCALE 100 UNITS/ML UNIT SUBQ SCH ×2 (07:11→11:42)
[2016-10-06 07:14] LABS: ANION GAP 8.5 (7.0-16.0); BUN - UREA NITROGEN 19 mg/dL (7-25); BUN/CREATININE RATIO 23.8; CALCIUM SERUM 9.6 mg/dL (8.6-10.3); CARBON DIOXIDE 33.8 mEq/L (21.0-31.0); CHLORIDE 91 mEq/L (98-107); CREATININE - SERUM 0.8 mg/dL (0.7-1.3); GLUCOSE 192 mg/dL (70-105); POTASSIUM SERUM 4.3 mEq/L (3.5-5.1); SODIUM SERUM 129 mEq/L (136-145)
[2016-10-06] MEDS: Budesonide 0.5 Mg/2 mL Ud HHN SCH (08:03)
[2016-10-06] MEDS: Insulin Detemir 100 units/mL 10mL Vial SUBQ SCH (08:58)
[2016-10-06] MEDS: Levothyroxine 0.1 Mg Tab PO SCH (08:58)
[2016-10-06] MEDS: Pantoprazole 40 mg EC Tab PO SCH (08:59)
--- NOTE | 2016-10-07 01:15 | Progress Notes ---
SUBJECTIVE: Chart reviewed and the patient interviewed. Also discussed the patient's condition with the staff and reviewed records and labs. The patient is still severely depressed and he is still withdrawn. The patient also is still feeling hopeless and helpless. The patient also is interacting minimally with others. He denies any thoughts of suicide or homicide but he is still complaining of severe anxiety. He also still discouraged because no place accepted him yet. ASSESSMENT: The patient is still depressed and is still feeling hopeless and helpless. TREATMENT PLAN: I started the patient on Vistaril yesterday to help with his high anxiety level. We will continue same dose. Also, we will increase Celexa to 30 mg everyday and we will continue to monitor his behavior and his condition closely. Also, continue to work on placement issue and on discharge plans. JOB# [id number]
--- NOTE | 2016-10-10 00:40 | Discharge Summary ---
HOSPITAL COURSE: The patient was admitted from [facility], transferred to medical floor ____ the patient had episodes of epistaxis versus hemoptysis and series of blood tests done that showed that the H and H are stable and no more of episodes of bleeding and no more episodes of epistaxis or hemoptysis. The patient was also seen by a psychiatrist due to psychiatric problems such as depression and the patient was [facility] in [place]. ASSESSMENT: 1. Epistaxis. 2. Depression. 3. Hypertension. 4. Congestive heart failure. 5. Diabetes. 6. Chronic atrial fibrillation. 7. Obesity. 8. Chronic obstructive pulmonary disease. JOB# [id number]
== END 2016-10-06 14:00 | DRG 150 ==
LOC: EDBD → MSI 06:38
PROVIDERS: ADMIT Internal Medicine Infectious Disease; ATTEND Internal Medicine Infectious Disease
DX: R04.0 Epistaxis (principal); I50.43 Acute on chronic combined systolic (congestive) and diastolic (congestive) heart failure; E87.3 Alkalosis; D68.32 Hemorrhagic disorder due to extrinsic circulating anticoagulants; I42.9 Cardiomyopathy, unspecified; Z68.43 Body mass index [BMI] 50.0-59.9, adult; E87.1 Hypo-osmolality and hyponatremia; E66.2 Morbid (severe) obesity with alveolar hypoventilation; I11.0 Hypertensive heart disease with heart failure; I50.9 Heart failure, unspecified; E11.9 Type 2 diabetes mellitus without complications; G47.33 Obstructive sleep apnea (adult) (pediatric); T45.515A Adverse effect of anticoagulants, initial encounter; Y92.89 Other specified places as the place of occurrence of the external cause; F32.9 Major depressive disorder, single episode, unspecified; E03.9 Hypothyroidism, unspecified; J44.9 Chronic obstructive pulmonary disease, unspecified; I87.8 Other specified disorders of veins; I48.2 Chronic atrial fibrillation; Z79.4 Long term (current) use of insulin; Z79.01 Long term (current) use of anticoagulants; Z88.8 Allergy status to other drugs, medicaments and biological substances; Z87.891 Personal history of nicotine dependence; Z79.82 Long term (current) use of aspirin; Z22.322 Carrier or suspected carrier of Methicillin resistant Staphylococcus aureus
CPT/HCPCS: 36415-UA; 71010-TC; 80048-TC; 81001-TC; 82533-90; 82948-90; 83036-90; 83880-TC; 83930-90; 83935-90; 84300-TC; 84443-TC; 84550-TC; 93005; 94760; 97530; J1815; J1940; J7030; Q0177; X3904; Z7610